=== PATIENT | female | born 1955 | race Caucasian/White ===

== ENCOUNTER 2016-07-21 12:16 | Inpatient (IN) ==
[2016-07-21] MEDS ORDERED: Aspirin 325 MG TABLET PO ONE (12:53)
--- NOTE | 2016-07-21 13:08 | Emergency Department Note ---
Disposition Clinical Impression: NSTEMI (non-ST elevated myocardial infarction) Disposition: Home, Self-Care Condition: Critical Time of Disposition: 14:56 Chest Pain HPI - General Chief Complaint: ED Shortness of Breath/Dyspnea Stated Complaint: shortness of breath Time Seen by Provider: 07/21/16 12:28 Source: patient, EMS Limitations: no limitations Vital Signs Reviewed: Yes Nursing Notes Reviewed: Yes - History of Present Illness HPI Narrative: Ms. Ludwig, a 61yo female, presents from PCP office with CC: chest pain with JAGJIT. CP onset last night while resting. Located midsternal and nonradiating. Described as a heaviness, "like an elephant sitting on my chest. " This lasted approximately 1 hour and spontaneously self resolved. Her symptoms were associated with dyspnea, diaphoresis, generalized weakness. Her dyspnea has persisted. 1-2 days prior, patient noted having a sharp pain in her left calf which also spontaneously resolved. Patient was at her primary care physician today with a well visit in presenting his concerns. PCP was concerned for a pulmonary embolus given the patient's leg pain with dyspnea. Patient denies chest pain at this time however she is dyspneic. PMH: Hypertension. Admits: Chest pain, dyspnea, diaphoresis, generalized weakness. Denies: Fever, chills, nausea, vomiting, palpitations, abdominal pain. Denies history of cardiac problems. Denies COPD. Denies diabetes. No melena, hematochezia, hemetemesis, epistaxis, easy bruising. Family history: Denies FL in males under 55 or females under 65. Severity scale (1-10): 9 - Related Data Home Medications Medication Instructions Recorded Confirmed Atorvastatin [Lipitor] 40 mg PO HS 06/05/16 07/21/16 Escitalopram [Lexapro] 20 mg PO DAILY 06/05/16 07/21/16 Ezetimibe [Zetia] 10 mg PO DAILY 06/05/16 07/21/16 Levothyroxine [Synthroid] 100 mcg PO DAILY 06/05/16 07/21/16 Losartan Potassium [Cozaar] 50 mg PO DAILY 06/05/16 07/21/16 Omeprazole [PriLOSEC] 20 mg PO DAILY 06/05/16 07/21/16 Tizanidine HCl 4 mg PO HS PRN 06/05/16 07/21/16 AcetaZOLAMIDE [Acetazolamide] 500 mg PO BID 07/21/16 07/21/16 Vitamin D3 07/21/16 Allergies Allergy/AdvReac Type Severity Reaction Status Date / Time Penicillins [PCN] Allergy Rash Verified 05/17/15 08:45 All systems ED: reviewed and negative except as stated. Chest Pain PMH - Past Medical History Medical history: Reports: diabetes, GERD, hyperlipidemia, hypertension, other Surgical history: Reports: appendectomy, cholecystectomy, hysterectomy, other Psychiatric history: Reports: depression - Social History Smoking Status: Never smoker Alcohol use: Reports: none Drug use: Reports: none Physical Exam Vital Signs Temperature 97.7 F 07/21/16 12:20 Pulse Rate 90 07/21/16 12:20 Respiratory Rate 18 07/21/16 12:20 Blood Pressure 133/71 07/21/16 12:20 O2 Sat by Pulse Oximetry 97 07/21/16 12:20 Temperature 97.7 F 07/21/16 12:20 Pulse Rate 87 07/21/16 13:15 Respiratory Rate 16 07/21/16 13:15 Blood Pressure 129/71 07/21/16 13:15 O2 Sat by Pulse Oximetry 97 07/21/16 13:15 Oxygen Delivery Oxygen Delivery Room Air General: Patient is alert, oriented, and in no acute distress. HEENT: No facial asymmetry. Head is normocephalic and atraumatic. Trachea midline. Cardiovascular: Heart regular rate and rhythm without clicks, rubs, gallops, or murmurs. No JVD. PMI nondisplaced. No pedal edema. Peripheral pulses 2/4 posterior tibial and dorsalis pedis bilaterally. Respiratory: Symmetric chest rise with good respiratory effort. Bilateral breath sounds are clear without wheezing, crackles, or rhonchi. Abdomen: Bowel sounds present normoactive x-4 quadrants. Abdomen is soft, nondistended, and nontender. No organomegaly noted. Musculoskeletal: Bilateral lower extremity is without edema. No asymmetry observed between lefts Or thigh versus right. Psych: Patient's affect is appropriate for situation. - General Limitations: no limitations General appearance: alert, in no apparent distress Course Course Narrative: My initial concern is for an STEMI as patient's EKG is unremarkable. PE or DVT unlikely given patient's clinical story. WELLS DVT score -2. WELLS PE score 0. Patient is PERC + by age only. At this time, clinical suspicion is low will not perform d-dimer, vascular ultrasound, or CTA chest. Chest x-rays on concerning. Interpreted as no acute cardiopulmonary disease. Chest X-Ray 07/21/16 12:52 IMPRESSION: 1. No active pulmonary disease. D/ / Arslan Martinez MD / Arslan Martinez MD Interpreting Provider: Arslan Martinez MD 14:[address] Jackson who agrees to accept the patient. Admitting diagnosis NSTEMI. Vital Signs Temperature 97.7 F 07/21/16 12:20 Pulse Rate 90 07/21/16 12:20 Respiratory Rate 18 07/21/16 12:20 Blood Pressure 133/71 07/21/16 12:20 O2 Sat by Pulse Oximetry 97 07/21/16 12:20 Temperature 97.7 F 07/21/16 12:20 Pulse Rate 82 07/21/16 14:30 Respiratory Rate 16 07/21/16 15:33 Blood Pressure 150/76 07/21/16 15:33 O2 Sat by Pulse Oximetry 97 07/21/16 14:30 Oxygen Delivery Oxygen Delivery Room Air Chest Pain - Lab Data Result diagrams: 07/21/16 13:21 07/21/16 13:21 Lab Results 07/21/16 07/21/16 07/21/16 Range/Units 13:21 13:21 13:21 WBC 9.8 (4.3-11.1) K/mcL RBC 4.57 (3.82-4.97) M/mcL Hgb 8.2 L (11.5-15.4) g/dL Hct 30.5 L (35.3-44.9) % MCV 66.7 L (83.0-100.0) fL MCH 17.9 L (28.0-33.3) pg MCHC 26.9 L (31.6-35.5) g/dL RDW 18.3 H (11.5-14.5) % Plt Count 328 (140-400) K/mcL MPV 9.7 (9.4-12.4) fL Immature Gran % 0.4 (0-4) % Seg Neutrophils % 77.5 % Lymphocytes % 16.5 % Monocytes % 4.8 % Eosinophils % 0.4 % Basophils % 0.4 % Neutrophils # 7.6 (1.6-8.9) K/mcL Lymphocytes # 1.6 (0.6-4.6) K/mcL Monocytes # 0.5 (0.0-1.3) K/mcL Eosinophils # 0.0 (0.0-0.6) K/mcL Basophils # 0.0 (0.0-0.2) K/mcL Platelet Estimate Normal (Normal) Large Platelets Present A (Not Present) Hypochromasia Present A (Not Present) Microcytosis Present A (Not Present) Ovalocytes 1+ A (Not Present) Sodium 141 (136-145) mEq/L Potassium 3.4 L (3.5-4.5) mEq/L Chloride 110 H (98-109) mEq/L Carbon Dioxide 20 (19-29) mEq/L BUN 16 (7-20) mg/dL Creatinine 0.80 (0.57-1.11) mg/dL Est GFR ( Amer) > 60 (> 60) Est GFR (Non-Af Amer) > 60 (> 60) BUN/Creatinine Ratio 20 (6-26) Glucose 76 (70-99) mg/dL Calculated Osmolality 292 (280-300) Calcium 10.1 (8.6-10.8) mg/dL Troponin I 0.12 H* (0-0.03) ng/mL B-Natriuretic Peptide (0-100) pg/mL 07/21/16 Range/Units 13:21 WBC (4.3-11.1) K/mcL RBC (3.82-4.97) M/mcL Hgb (11.5-15.4) g/dL Hct (35.3-44.9) % MCV (83.0-100.0) fL MCH (28.0-33.3) pg MCHC (31.6-35.5) g/dL RDW (11.5-14.5) % Plt Count (140-400) K/mcL MPV (9.4-12.4) fL Immature Gran % (0-4) % Seg Neutrophils % % Lymphocytes % % Monocytes % % Eosinophils % % Basophils % % Neutrophils # (1.6-8.9) K/mcL Lymphocytes # (0.6-4.6) K/mcL Monocytes # (0.0-1.3) K/mcL Eosinophils # (0.0-0.6) K/mcL Basophils # (0.0-0.2) K/mcL Platelet Estimate (Normal) Large Platelets (Not Present) Hypochromasia (Not Present) Microcytosis (Not Present) Ovalocytes (Not Present) Sodium (136-145) mEq/L Potassium (3.5-4.5) mEq/L Chloride (98-109) mEq/L Carbon Dioxide (19-29) mEq/L BUN (7-20) mg/dL Creatinine (0.57-1.11) mg/dL Est GFR ( Amer) (> 60) Est GFR (Non-Af Amer) (> 60) BUN/Creatinine Ratio (6-26) Glucose (70-99) mg/dL Calculated Osmolality (280-300) Calcium (8.6-10.8) mg/dL Troponin I (0-0.03) ng/mL B-Natriuretic Peptide 325 H (0-100) pg/mL - EKG Data EKG attestation: Yes I reviewed and interpreted this EKG. EKG results narrative: EKG dated 07/21/16 interpreted as sinus rhythm with a rate of 90. Left axis. Movement artifact is evident. Nonspecific ST-T changes with 0.5mm ST depression in lateral leads. Compared to previous dated 12/23/16 showing no acute ischemic changes in comparison. Heart Score - Score History: Slightly Suspicious EKG: Normal Age: 45-65 Risk Factors: 1-2 risk factors Troponin: Greater than 3x normal limit HEART Score Total: 4 Attestation Statement - Attestation Attestation: I examined this patient and my medical decision-making was reviewed with the Resident Physician. I agree with the documented findings, disposition and treatment plan as described except to the extent set forth below. CP overnight, none since, but has had persistent SOB t/o day. Has excessive fatigue and decreased exercise tolerance due to ASTORGA. Trop 0.20, subtle ST depression laterally. Dx NSTEMI, will admit/anticoagulate (no sx of GI bleeding or other abnormal bleeding).
[2016-07-21 13:31] LABS: Basophils % 0.4 %; Eosinophils % 0.4 %; Hematocrit 30.5 % (35.3-44.9); Hemoglobin 8.2 g/dL (11.5-15.4); Immature Granulocytes % 0.4 % (0-4); Lymphocytes # 1.6 K/mcL (0.6-4.6); Lymphocytes % 16.5 %; Mean Corpuscular HGB Conc 26.9 g/dL (31.6-35.5); Mean Corpuscular Hemoglobin 17.9 pg (28.0-33.3); Mean Corpuscular Volume 66.7 fL (83.0-100.0); Mean Platelet Volume 9.7 fL (9.4-12.4); Monocytes # 0.5 K/mcL (0.0-1.3); Monocytes % 4.8 %; Neutrophils # 7.6 K/mcL (1.6-8.9); Platelet Count 328 K/mcL (140-400); Red Blood Count 4.57 M/mcL (3.82-4.97); Red Cell Distribution Width 18.3 % (11.5-14.5); Segmented Neutrophils % 77.5 %
[2016-07-21 13:48] LABS: BUN/Creatinine Ratio 20 (6-26); Blood Urea Nitrogen 16 mg/dL (7-20); Calcium 10.1 mg/dL (8.6-10.8); Carbon Dioxide 20 mEq/L (19-29); Chloride 110 mEq/L (98-109); Glucose 76 mg/dL (70-99); Osmolality,Calculated 292 (280-300); Potassium 3.4 mEq/L (3.5-4.5); Sodium 141 mEq/L (136-145); eGFR For African Americans > 60 (> 60); eGFR For Non-African Americans > 60 (> 60)
[2016-07-21 13:57] LABS: Hypochromasia Present (Not Present); Large Platelets Present (Not Present); Microcytosis Present (Not Present); Platelet Estimate Normal (Normal)
[2016-07-21 13:58] LABS: Ovalocytes 1+ (Not Present)
[2016-07-21] MEDS ORDERED: *HR* Enoxaparin 120 MG/0.8 ML SYRINGE SQ STA (14:34)
[2016-07-21] MEDS ORDERED: Naloxone 0.4 MG/ML INJ IVP PRN (17:24)
[2016-07-21] MEDS ORDERED: *HR* HYDROcodone/Acet 5/325 mg TABLET PO PRN (17:24)
[2016-07-21] MEDS ORDERED: tiZANidine 4 MG TABLET PO PRN (17:38)
[2016-07-21] MEDS ORDERED: Dextrose Gel 15 GM PO PRN ×2 (17:42)
[2016-07-21] MEDS ORDERED: *HR* Dextrose 50 % in Water (Syg) 50 ML SYRINGE IVP PRN (17:42)
[2016-07-21] MEDS ORDERED: D5% in Water 1,000 ML IV PRN (17:42)
[2016-07-21] MEDS ORDERED: Nitroglycerin 0.4 MG TAB.SUBL SL PRN (17:43)
--- NOTE | 2016-07-21 17:55 | Internal Med History&Physical ---
Date of Encounter: 07/21/16 Time of Encounter: 16:00 Assessment and Plan (1) NSTEMI (non-ST elevated myocardial infarction) Current visit: Yes Status: Acute 1 patient did experience chest pain last night with shortness of breath . Risk factors include hypertension diabetes obesity. First cardiac troponin was 0.12. Continue to cycle cardiac troponins 2 continue with aspirin Lovenox, 3 nitroglycerin and oxygen as needed 4 continue with statin ARB will add low dose beta prabhu 5 Will obtain cardiac echo 6 consulted cardiology 7 N by mouth after midnight (2) Diabetes mellitus Current visit: Yes Status: Acute 1 patient type II diabetic states that she does not take any insulin she is diet controlled. We will check blood sugars before meals and at bedtime sliding scale insulin as needed Qualifiers: Diabetes mellitus type: type 2 Diabetes mellitus complication status: without complication Diabetes mellitus long term care administrator insulin use: without snf use Qualified Code(s): E11.9 - Type 2 diabetes mellitus without complications (3) Hypothyroid Current visit: Yes Status: Acute 1 continue with Synthroid-we will check TSH Qualifiers: Hypothyroidism type: unspecified Qualified Code(s): E03.9 - Hypothyroidism , unspecified (4) Hypertension Current visit: Yes Status: Acute 1 presently blood pressure is controlled we will continue with ARB goal is to maintain systolic less than 140 Qualifiers: Hypertension type: essential hypertension Qualified Code(s): I10 - Essential (primary) hypertension (5) Anemia Current visit: Yes Status: Acute 1 hemoglobin at present time is 8.2 patient states that she was anemic in the past. Denies any hemataemesis, melena or hematochezia. She is not on any blood thinners. We will obtain anemia workup will continue to monitor CBC and transfuse as needed Qualifiers: Anemia type: unspecified type Qualified Code(s): D64.9 - Anemia, unspecified (6) DVT prophylaxis Current visit: Yes Status: Acute 1 [facility] Internal Medicine - H&P: HPI Chief complaint: CP Admitted From: Emergency Dept Plans for Post Hospital Care: Home History of present illness: Ms. Ludwig is a 61 year old female . History of hypertension diabetes hypothyroidism GERD hyperlipidemia. Patient noticed shortness breath on exertion as she was walking to the grocery store yesterday evening. The shortness of breath resolved with rest and a few hours later she began to experience midsternal sharp 10 out of 10 chest pain which was nonradiating. She has associated symptoms of nausea and shortness of breath the pain was exacerbated with exertion and relieved with rest it eventually resolved on its own. This morning she went to an appointment with her primary care physician experienced shortness of breath and lightheadedness. She was transported to ER for further evaluation. Upon arrival to the ER patient states her shortness of breath resolved. According to ER records patient's first cardiac troponin was 0.12 hemoglobin was 8.2 chemistry revealed hypokalemia with potassium 3.4. Chest x-ray no acute process EKG with no ST-T wave abnormalities. Patient was given aspirin and weight-based Lovenox. She was admitted for further workup and evaluation. Presently patient is chest pain-free and denies any shortness of breath she is hemodynamically stable at this time. I did speak with Dr. Garcia cardiology request the patient be nothing by mouth after midnight and to hold her a.m. Lovenox until after she is evaluated by cardiology. I reviewed this case with who agrees with plan Past Med Surg Social Fam HX - Past Medical History Medical history: diabetes, GERD, hyperlipidemia, hypertension, other Psychiatric history: depression - Past Surgical History Surgical History: appendectomy, cholecystectomy, hysterectomy, other - Social History Smoking Status: Never smoker Smokeless Tobacco Status: No Alcohol use: none Drug use: none - Family History Father Living Status: Still Living Hx Family Endocrine Disorder: Yes Brother Living Status: Still Living Hx Family Endocrine Disorder: Yes Internal Medicine - H&P: Meds Atorvastatin [Lipitor] 40 mg PO HS 06/05/16 [History] Escitalopram [Lexapro] 20 mg PO DAILY 06/05/16 [History] Ezetimibe [Zetia] 10 mg PO DAILY 06/05/16 [History] Levothyroxine [Synthroid] 100 mcg PO DAILY 06/05/16 [History] Losartan Potassium [Cozaar] 50 mg PO DAILY 06/05/16 [History] Omeprazole [PriLOSEC] 20 mg PO DAILY 06/05/16 [History] Tizanidine HCl 4 mg PO HS PRN 06/05/16 [History] AcetaZOLAMIDE [Acetazolamide] 500 mg PO BID 07/21/16 [History] Vitamin D3 07/21/16 [History] Allergies Penicillins [PCN] Allergy (Verified 05/17/15 08:45) Rash All Systems PM: A 10-system review of systems was performed and is negative for pertinent findings except as documented above in the HPI. - Constitutional Constitutional: weakness - Cardiovascular Cardiovascular ROS IM: chest pain, dyspnea on exertion - Respiratory Respiratory: no cough, no dyspnea, no wheezing, no excessive phlegm production - Gastrointestinal Gastrointestinal: no abdominal pain, no diarrhea, no hematemesis, no hematochezia, no melena, no nausea, no vomiting - Genitourinary Genitourinary: no change in urinary stream, no dysuria, no flank pain, no hematuria - Musculoskeletal Musculoskeletal ROS IM: no numbness, no tingling - Neurological Neurological ROS: no confusion, no convulsions, no focal weakness, no numbness, no tingling, no tremor(s) - Hematologic/Lymphatic Hematologic/Lymphatic: no easy bruising - Constitutional Vitals: Temp Pulse Resp BP Pulse Ox 97.8 F 87 18 134/84 95 07/21/16 15:51 07/21/16 15:51 07/21/16 15:51 07/21/16 15:51 07/21/16 15:51 General appearance: Present: A&O X 3, obese, answers questions appropriately - Head Head exam: Present: atraumatic, normocephalic - Neck Neck exam general surgery: Present: supple, trachea midline. Absent: lymphadenopathy - Respiratory Respiratory exam: Present: CTAB. Absent: accessory muscle use, rales, rhonchi, wheezes - Cardiovascular Cardiovascular exam: Present: RRR, +S1, +S2. Absent: diastolic murmur, gallop, rubs, systolic murmur - GI/Abdominal GI/Abdominal exam: Present: normal bowel sounds, soft, no peritoneal signs. Absent: distended, tenderness - Extremities Exam Extremities exam: Present: warm, radial pulses palpable and symetrical. Absent : calf tenderness, cyanotic, pedal edema - Neurological Exam Neurological exam: Present: CN II-XII intact, oriented X3, no focal deficits. Absent: pronater drift, facial droop, speech deficit Internal Med - H&P Results - Labs CBC & Chem 7: 07/21/16 13:21 07/21/16 13:21 - EKG Data EKG shows normal: sinus rhythm - Diagnostic Studies Chest x-ray Additional comments: No acute process
[2016-07-21] MEDS: *HR* Morphine 2 MG/ML SYRINGE IVP PRN ×2 (19:25→23:56)
[2016-07-21] MEDS: Insulin LISPRO 300 UNITS/3 ML VIAL SQ SCH (22:08)
[2016-07-22] MEDS: Ondansetron 4 MG/2 ML VIAL IVP PRN (00:34)
[2016-07-22 03:55] LABS: Immature Granulocytes % 0.5 % (0-4); Red Cell Distribution Width 18.4 % (11.5-14.5)
[2016-07-22 03:57] LABS: Basophils # 0.1 K/mcL (0.0-0.2); Basophils % 0.6 %; Eosinophils # 0.1 K/mcL (0.0-0.6); Hematocrit 27.4 % (35.3-44.9); Hemoglobin 7.4 g/dL (11.5-15.4); Immature Platelets 3.5 % (1.1-6.1); Lymphocytes # 2.7 K/mcL (0.6-4.6); Lymphocytes % 24.2 %; Mean Corpuscular Hemoglobin 18.3 pg (28.0-33.3); Mean Corpuscular Volume 67.8 fL (83.0-100.0); Mean Platelet Volume 10.3 fL (9.4-12.4); Monocytes # 0.7 K/mcL (0.0-1.3); Monocytes % 5.9 %; Platelet Count 306 K/mcL (140-400); Red Blood Count 4.04 M/mcL (3.82-4.97); Segmented Neutrophils % 67.8 %
[2016-07-22 04:09] LABS: % Iron Saturation 3 % (15-50); Iron 14 mcg/dL (50-170); Transferrin 286 mg/dL (180-382)
[2016-07-22 04:10] LABS: BUN/Creatinine Ratio 18 (6-26); Blood Urea Nitrogen 15 mg/dL (7-20); Calcium 8.9 mg/dL (8.6-10.8); Carbon Dioxide 18 mEq/L (19-29); Chloride 111 mEq/L (98-109); Chol/HDL Ratio 3.9 (0-4.9); Glucose 114 mg/dL (70-99); HDL Cholesterol 20 mg/dL (40-59); LDL Cholesterol,Calculated 30 mg/dL (0-99); Magnesium 1.2 mg/dL (1.6-2.6); Osmolality,Calculated 292 (280-300); Potassium 3.4 mEq/L (3.5-4.5); Sodium 140 mEq/L (136-145); Triglycerides 142 mg/dL (< 150); eGFR For African Americans > 60 (> 60); eGFR For Non-African Americans > 60 (> 60)
[2016-07-22 04:13] LABS: Cholesterol 78 mg/dL (< 200)
[2016-07-22 04:17] LABS: Neutrophils # 7.5 K/mcL (1.6-8.9)
[2016-07-22 04:21] LABS: Anisocytosis 1+ (Not Present); Large Platelets Present (Not Present); Microcytosis Present (Not Present); Platelet Estimate Normal (Normal); Reactive Lymphocytes Present (Not Present)
[2016-07-22 04:22] LABS: Ovalocytes 1+ (Not Present); Poikilocytosis 1+ (Not Present); Polychromasia 1+ (Not Present); Schistocytes 1+ (Not Present)
[2016-07-22 04:44] LABS: Folate 4.3 ng/mL (7.0-31.4)
[2016-07-22] MEDS ORDERED: *HR* Enoxaparin 120 MG/0.8 ML SYRINGE SQ SCH ×2 (07:00)
[2016-07-22] MEDS: Insulin LISPRO 300 UNITS/3 ML VIAL SQ SCH ×4 (08:37→20:43)
[2016-07-22] MEDS: Aspirin 81 MG TAB.CHEW PO SCH (08:38)
[2016-07-22] MEDS: (Ezetimibe [Zetia] 10 MG) PO SCH (08:38)
--- NOTE | 2016-07-22 09:51 | Cardiology Consult Note ---
Date of Encounter: 07/22/16 Time of Encounter: 10:01 Assessment and Plan (1) SOB (shortness of breath) on exertion Current Visit: Yes Status: Acute Sxs probably related to anemia - ? source. Echo pending. If EF is normal - no additional eval planned for now. (2) Chest pain Current Visit: Yes Status: Acute Sxs have some concerning features. No acute EKG changes and Troponin trended down overnight. At this point, not convinced this is ACS/ND/NSTEMI - probably suspect demand mismatch. Given anemia - suspect this is the most likely culprit. Echo ordered. No immediate ischemic eval - would wait until anemia is fully addressed. Qualifiers: Chest pain type: precordial pain Qualified Code(s): R07.2 - Precordial pain (3) Anemia Current Visit: Yes Status: Acute Trended down overnight which limits CV treatment options Also probably the source of her recent sxs. Defer to others for this problem as well as unexplained weight loss/nausea Qualifiers: Anemia type: unspecified type Qualified Code(s): D64.9 - Anemia, unspecified Discussion w patient/family: The assessment and plan as outlined above was discussed with the patient and/or family members who expressed understanding and agreement. All questions were answered. Thank you for involving us in the care of your patient. Please call with any questions. History of Present Illness Consult date: 07/22/16 Consult reason: chest pain Chief complaint: same History of present illness: Ms. Ludwig is a 61 year old female presents with < 1 week h/o SOB with exertion as well as intermittent anterior chest heaviness. This chest pain, started at rest, no clear exacerbating or relieving factor. No definite radiation. She denies any sxs prior to last week. She denies any sxs while I at bedside. Work up in the ER notable for anemia, and a slight increase in Troponin. Patient denies any overt bleeding. Patient denies any recent CV assessment. Other complaints today includes poor appetite and a 30+ pound weight loss in the past few months. Past Med Surg Social Fam HX - Past Medical History Medical history: diabetes, GERD, hyperlipidemia, hypertension, other Psychiatric history: depression - Past Surgical History Surgical History: appendectomy, cholecystectomy, hysterectomy, other - Social History Smoking Status: Never smoker Smokeless Tobacco Status: No Alcohol use: none Drug use: none - Family History Father Living Status: Still Living Hx Family Endocrine Disorder: Yes Brother Living Status: Still Living Hx Family Endocrine Disorder: Yes Medications and Allergies Atorvastatin [Lipitor] 40 mg PO HS 06/05/16 [History] Escitalopram [Lexapro] 20 mg PO DAILY 06/05/16 [History] Ezetimibe [Zetia] 10 mg PO DAILY 06/05/16 [History] Levothyroxine [Synthroid] 100 mcg PO DAILY 06/05/16 [History] Losartan Potassium [Cozaar] 50 mg PO DAILY 06/05/16 [History] Omeprazole [PriLOSEC] 20 mg PO DAILY 06/05/16 [History] Tizanidine HCl 4 mg PO HS PRN 06/05/16 [History] AcetaZOLAMIDE [Acetazolamide] 500 mg PO BID 07/21/16 [History] Vitamin D3 07/21/16 [History] Allergies Penicillins [PCN] Allergy (Verified 05/17/15 08:45) Rash All Systems Review: A 10-system review of systems was performed and is negative for pertinent findings except as documented above in the HPI. Review of Systems: Except as outline below - all other reviews were negative. - Constitutional Constitutional: fatigue, weight loss - Cardiovascular Cardiovascular: chest pain at rest, dyspnea on exertion, no diaphoresis, no irregular heart rhythm, no syncope - Respiratory Respiratory: dyspnea, no hemoptysis - Gastrointestinal Gastrointestinal: nausea, no hematemesis, no hematochezia, no melena - Genitourinary Genitourinary: no hematuria Physical Examination Vital Signs, Last 4 Hours Temp Pulse Resp BP Pulse Ox 07/22/16 07:15 97.9 F 78 18 144/83 94 L General: Conversant, No Apparent Distress HEENT: Atraumatic, Normocephaly Neck: No JVD Cardiac: Reg Rate and Rhythm Lungs: Normal Breath Sounds Neuro: Alert and responsive, No focal deficits noted Abdomen: Soft, Non-Tender Skin: No rashes noted on visualized skin Musculoskeletal: No Chest Wall Tenderness Extremities: No Clubbing, No Cyanosis Results 07/22/16 03:46 07/22/16 03:46 Lab Results 07/22/16 07/22/16 07/22/16 03:46 03:46 03:46 WBC 11.0 Hgb 7.4 L Hct 27.4 L Plt Count 306 Sodium 140 Potassium 3.4 L Chloride 111 H Carbon Dioxide 18 L BUN 15 Creatinine 0.82 Glucose 114 H Calcium 8.9 Magnesium 1.2 L Troponin I 0.08 H* - EKG Interpretation EKG results cardiology: personally reviewed, no diagnostic ischemia Consult Discharge Plan - Plan Referrals: Francine Wood MD [Primary Care Provider] -
--- NOTE | 2016-07-22 12:22 | Internal Med Progress Note ---
Date of Encounter: 07/22/16 Time of Encounter: 12:20 - Assessment and plan (1) Chest pain Current Visit: Yes Status: Acute Assessment and plan: Unlikely cardiac origin. Tropnin trending down and possible demand ischimia. will observe closely. Qualifiers: Chest pain type: precordial pain Qualified Code(s): R07.2 - Precordial pain (2) Anemia Current Visit: Yes Status: Acute Assessment and plan: has anaemia and looking at indicies, it appears that she has microcytic/ hypochromic anaemia. plan will get GI evaluation for possible EGD/Colonoscopy. family updated and agreed. Qualifiers: Anemia type: unspecified type Qualified Code(s): D64.9 - Anemia, unspecified (3) Diabetes mellitus Current Visit: Yes Status: Acute Assessment and plan: ACHS Sliding scale insulin along with home dose. patient agreed Qualifiers: Diabetes mellitus type: type 2 Diabetes mellitus complication status: without complication Diabetes mellitus health service coordinator insulin use: without health service coordinator use Qualified Code(s): E11.9 - Type 2 diabetes mellitus without complications - Subjective Interval history: seen and examined. patient has profuse diarrhea for past 3 days. she has ongoing diarrhea associated with consipation for more than 5 months. family at bedside and concern about this. she denies chest pain. - Constitutional Vitals: Temp Pulse Resp BP Pulse Ox 97.9 F 78 18 144/83 94 L 07/22/16 07:15 07/22/16 07:15 07/22/16 07:15 07/22/16 07:15 07/22/16 07:15 General appearance: Present: A&O X 3, obese, answers questions appropriately - Head Head exam: Present: atraumatic, normocephalic - Eye Eye exam: Present: PERRL, conjuntiva pink, sclera anicteric Pupils: Present: PERRL - Neck Neck exam general surgery: Present: supple, trachea midline. Absent: lymphadenopathy - Respiratory Respiratory exam: Present: CTAB. Absent: accessory muscle use, rales, rhonchi, wheezes - Cardiovascular Cardiovascular exam: Present: RRR, +S1, +S2. Absent: diastolic murmur, gallop, rubs, systolic murmur - GI/Abdominal GI/Abdominal exam: Present: normal bowel sounds, soft, no peritoneal signs. Absent: distended, tenderness - Extremities Exam Extremities exam: Present: warm, radial pulses palpable and symetrical. Absent : calf tenderness, cyanotic, pedal edema - Neurological Exam Neurological exam: Present: CN II-XII intact, oriented X3, no focal deficits. Absent: pronater drift, facial droop, speech deficit - Skin Skin exam: Present: dry, intact Internal Medicine: Result - Labs CBC & Chem 7: 07/22/16 03:46 07/22/16 03:46 Labs: Short CBC 07/22/16 Range/Units 03:46 WBC 11.0 (4.3-11.1) K/mcL Hgb 7.4 L (11.5-15.4) g/dL Hct 27.4 L (35.3-44.9) % Plt Count 306 (140-400) K/mcL Neutrophils # 7.5 (1.6-8.9) K/mcL BMP 07/22/16 03:46 Sodium 140 Potassium 3.4 L Chloride 111 H Carbon Dioxide 18 L BUN 15 Creatinine 0.82 Glucose 114 H Calcium 8.9 Cardiac Enzymes 07/22/16 07/22/16 Range/Units 03:46 09:38 Troponin I 0.08 H* 0.07 H* (0-0.03) ng/mL Consult Discharge Plan - Plan Referrals: Francine Wood MD [Primary Care Provider] -
--- NOTE | 2016-07-22 13:42 | ECHO - Doppler Report ---
Echo with Saline Contrast Name: Roxana Ludwig Date of Study: 07/22/2016 Date: 1955 Ht: 66.0 in Medical Record#: [id number] Age: 61 Wt: 232.0 lb Gender: Female BSA: 2.13 Order #: [id number] Location: [facility] Room #: 2NE27 Reading Physician: Concetta Olivas DO Lead Pl Sql Developer: Kiah Santiago Ordering Physician: Maria G Amin CNP Primary Physician: Francine Wood MD Indications: Chest pain Impressions: LVEF 55%. Mild concentric hypertrophy of the left ventricle. There is evidence of mild diastolic dysfunction of the left ventricle. Dilated RV with normal function. Mild pulmonic regurgitation. No pulmonary hypertension. There is evidence of a PFO with agitated saline contrast. Left Ventricular Wall Motion: Rest Echo Findings All wall segments showed normal motion. Findings: Study Quality * Technically sub-optimal due to body habitus. ECG Findings * Normal sinus rhythm. Left Ventricle * LVEF 55%. * Mild concentric left ventricular hypertrophy. * Mild left ventricular diastolic dysfunction. Left Atrium * Normal left atrial size. Mitral Valve * Normal mitral valve structure. * No mitral stenosis. * Trace mitral regurgitation. Aortic Valve * Aortic valve not well visualized. * Trace aortic regurgitation. * No aortic stenosis. Tricuspid Valve * Tricuspid valve not well visualized. * Trace tricuspid regurgitation. * Estimated RA pressure is 3 mmHg. * Estimated RVSP is 30 mmHg. * No pulmonary hypertension. Pulmonic Valve * Pulmonic valve is not well visualized. * No pulmonic stenosis. * Mild pulmonic regurgitation. Pulmonary Artery * Pulmonary artery not well visualized. Right Ventricle * Dilated RV with normal function. Right Atrium * Normal right atrial size. Interatrial Septum * There is a PFO by agitated saline contrast, * Aneurysmal interatrial septal. IVC * The IVC is not dilated. Pericardium * There is no pericardial effusion present. Aorta * Normally sized aortic root. History Hypertension Diabetes Hypercholesteremia Myocardial Infarction Contrast: Agitated saline 10 ml. Measurements: BP: 144/ 83 2D Normal Values IVSd: 1.50 cm 0.6 - 1.0 cm LVIDd: 3.90 cm 3.7 - 5.6 cm LVPWd: 1.30 cm 0.6 - 1.1 cm LVIDs: 2.00 cm 1.5 - 3.6 cm AO: 3.10 cm < 4.0 cm LA: 4.10 cm 2.0 - 4.0cm %FS: 48.70 cm >25 % LA volume: 50 Mitral Valve Peak E:.80 m/sec Peak A:.71 m/sec E/A Ratio:1.1 Tricuspid Valve TV Regurg Peak Grad: 27.00mmHg TV Regurg Peak Joés: 2.61m/sec Updated by Concetta Olivas on 07/22/2016 1:38:45 PM electronically signed on 07/22/2016 1:39:20 PM with status of Final Wall Motion Bernard: 1=Normal, 2=Hypokinesis, 3=Akinesis, 4=Dyskinesis, 5=Aneurysmal, 6=Hyperkinetic, X=Not Visualized (Blank)=Missing
--- NOTE | 2016-07-22 14:01 | Event Note ---
Date of Encounter: 07/22/16 Time of Encounter: 13:58 - Cardiology Event Note Echo EF 55%. Mild concentric LVH, mild diastolic dysfunction, dilated RV with normal function, mild AL, PFO noted. No further cardiac work-up warranted. Cardiology signing off. Reconsult PRN.
[2016-07-22] MEDS: Acetaminophen 325 MG TABLET PO PRN (17:31)
[2016-07-23 05:39] LABS: Basophils % 0.7 %; Hemoglobin 7.3 g/dL (11.5-15.4); Immature Granulocytes % 0.6 % (0-4)
[2016-07-23 05:41] LABS: Basophils # 0.1 K/mcL (0.0-0.2); Eosinophils # 0.1 K/mcL (0.0-0.6); Eosinophils % 1.5 %; Hematocrit 27.2 % (35.3-44.9); Lymphocytes # 2.2 K/mcL (0.6-4.6); Lymphocytes % 24.2 %; Mean Corpuscular HGB Conc 26.8 g/dL (31.6-35.5); Mean Corpuscular Hemoglobin 18.2 pg (28.0-33.3); Mean Corpuscular Volume 67.7 fL (83.0-100.0); Monocytes # 0.6 K/mcL (0.0-1.3); Monocytes % 6.5 %; Nucleated Red Blood Cells 0.2 /100 WBC (0); Platelet Count 315 K/mcL (140-400); Red Blood Count 4.02 M/mcL (3.82-4.97); Red Cell Distribution Width 18.2 % (11.5-14.5); Segmented Neutrophils % 66.5 %
[2016-07-23 05:55] LABS: Albumin 2.9 g/dL (3.5-5.0); Albumin/Globulin Ratio 0.7 (1.1-2.2); Alkaline Phosphatase 124 Units/L (38-126); Aspartate Amino Transferase 12 Units/L (5-34); BUN/Creatinine Ratio 15 (6-26); Bilirubin,Total 1.2 mg/dL (0.2-1.2); Blood Urea Nitrogen 14 mg/dL (7-20); Calcium 8.5 mg/dL (8.6-10.8); Carbon Dioxide 22 mEq/L (19-29); Chloride 111 mEq/L (98-109); Globulin 4.1 g/dL (2.4-3.5); Glucose 143 mg/dL (70-99); Osmolality,Calculated 295 (280-300); Potassium 3.6 mEq/L (3.5-4.5); Sodium 141 mEq/L (136-145); eGFR For African Americans > 60 (> 60); eGFR For Non-African Americans > 60 (> 60)
[2016-07-23 05:56] LABS: Alanine Aminotransferase < 6 Units/L (0-55)
[2016-07-23 06:26] LABS: Anisocytosis 1+ (Not Present); Hypochromasia Present (Not Present); Large Platelets Present (Not Present); Microcytosis Present (Not Present); Ovalocytes 1+ (Not Present); Platelet Estimate Normal (Normal); Poikilocytosis 1+ (Not Present)
[2016-07-23] MEDS: Aspirin 81 MG TAB.CHEW PO SCH (08:35)
[2016-07-23] MEDS: Insulin LISPRO 300 UNITS/3 ML VIAL SQ SCH ×4 (08:36→21:42)
[2016-07-23] MEDS: (Ezetimibe [Zetia] 10 MG) PO SCH (08:37)
--- NOTE | 2016-07-23 13:22 | Electrocardiograph Report ---
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
--- NOTE | 2016-07-23 13:52 | Electrocardiograph Report ---
[address] [place] [address] Test Date: 2016-07-22 Pat Name: Roxana Ludwig Department: 111 Room: 2NE27 Gender: F Cna Pct: : 1955 Requested By: Moon Singer Order Number: [id number] Reading MD: Concetta Olivas Measurements Intervals [place] Rate: 68 P: 7 [place]: 188 QRS: -17 QRSD: 80 T: -6 QT: 429 QTc: 446 Interpretive Statements SINUS RHYTHM MODERATE T-WAVE ABNORMALITY, CONSIDER ANTERIOR ISCHEMIA Electronically Signed On 07-23-2016 13:50:24 EST by Concetta Olivas
--- NOTE | 2016-07-23 16:59 | Internal Med Progress Note ---
Date of Encounter: 07/23/16 Time of Encounter: 16:57 - Assessment and plan (1) Anemia Current Visit: Yes Status: Acute Assessment and plan: has anaemia and looking at indicies, it appears that she has microcytic/ hypochromic anaemia. plan will get GI evaluation for possible EGD/Colonoscopy. family updated and agreed. 07/23/2016 spoke with GI colonoscopy tomorrow will prepare today. updated family above. Qualifiers: Anemia type: unspecified type Qualified Code(s): D64.9 - Anemia, unspecified (2) Chest pain Current Visit: Yes Status: Acute Assessment and plan: Unlikely cardiac origin. Tropnin trending down and possible demand ischimia. will observe closely. Qualifiers: Chest pain type: precordial pain Qualified Code(s): R07.2 - Precordial pain (3) Diabetes mellitus Current Visit: Yes Status: Acute Assessment and plan: ACHS Sliding scale insulin along with home dose. patient agreed Qualifiers: Diabetes mellitus type: type 2 Diabetes mellitus complication status: without complication Diabetes mellitus longterm insulin use: without dramatic director use Qualified Code(s): E11.9 - Type 2 diabetes mellitus without complications - Subjective Interval history: seen and examined. patient has profuse diarrhea for past 3 days. she has ongoing diarrhea associated with consipation for more than 5 months. family at bedside and concern about this. she denies chest pain. - Constitutional Vitals: Temp Pulse Resp BP Pulse Ox 98.0 F 79 16 123/71 94 L 07/23/16 16:08 07/23/16 16:08 07/23/16 16:08 07/23/16 16:08 07/23/16 16:08 General appearance: Present: A&O X 3, obese, answers questions appropriately - Head Head exam: Present: atraumatic, normocephalic - Eye Eye exam: Present: PERRL, conjuntiva pink, sclera anicteric Pupils: Present: PERRL - Neck Neck exam general surgery: Present: supple, trachea midline. Absent: lymphadenopathy - Respiratory Respiratory exam: Present: CTAB. Absent: accessory muscle use, rales, rhonchi, wheezes - Cardiovascular Cardiovascular exam: Present: RRR, +S1, +S2. Absent: diastolic murmur, gallop, rubs, systolic murmur - GI/Abdominal GI/Abdominal exam: Present: normal bowel sounds, soft, no peritoneal signs. Absent: distended, tenderness - Extremities Exam Extremities exam: Present: warm, radial pulses palpable and symetrical. Absent : calf tenderness, cyanotic, pedal edema - Neurological Exam Neurological exam: Present: CN II-XII intact, oriented X3, no focal deficits. Absent: pronater drift, facial droop, speech deficit - Skin Skin exam: Present: dry, intact Internal Medicine: Result - Labs CBC & Chem 7: 07/23/16 05:30 07/23/16 05:30 Labs: Short CBC 07/23/16 Range/Units 05:30 WBC 9.0 (4.3-11.1) K/mcL Hgb 7.3 L (11.5-15.4) g/dL Hct 27.2 L (35.3-44.9) % Plt Count 315 (140-400) K/mcL Neutrophils # 6.0 (1.6-8.9) K/mcL BMP 07/23/16 05:30 Sodium 141 Potassium 3.6 Chloride 111 H Carbon Dioxide 22 BUN 14 Creatinine 0.91 Glucose 143 H Calcium 8.5 L Liver Function 07/23/16 Range/Units 05:30 Total Bilirubin 1.2 (0.2-1.2) mg/dL AST 12 (5-34) Units/L ALT < 6 (0-55) Units/L Alkaline Phosphatase 124 (38-126) Units/L Albumin 2.9 L (3.5-5.0) g/dL Consult Discharge Plan - Plan Referrals: Francine Wood MD [Primary Care Provider] -
[2016-07-23] MEDS ORDERED: Polyethylene Glycol 3350 255 GM POWDER PO ONE (18:00)
[2016-07-24] MEDS: Ondansetron 4 MG/2 ML VIAL IVP PRN (01:35)
[2016-07-24 05:58] LABS: Basophils % 0.5 %; Hemoglobin 7.9 g/dL (11.5-15.4); Immature Granulocytes % 0.5 % (0-4); Red Cell Distribution Width 18.3 % (11.5-14.5)
[2016-07-24 06:01] LABS: Basophils # 0.1 K/mcL (0.0-0.2); Eosinophils # 0.1 K/mcL (0.0-0.6); Eosinophils % 0.8 %; Hematocrit 29.8 % (35.3-44.9); Immature Platelets 4.2 % (1.1-6.1); Lymphocytes # 1.7 K/mcL (0.6-4.6); Lymphocytes % 14.5 %; Mean Corpuscular HGB Conc 26.5 g/dL (31.6-35.5); Mean Corpuscular Hemoglobin 17.9 pg (28.0-33.3); Mean Corpuscular Volume 67.4 fL (83.0-100.0); Mean Platelet Volume 10.1 fL (9.4-12.4); Monocytes # 0.6 K/mcL (0.0-1.3); Neutrophils # 9.3 K/mcL (1.6-8.9); Platelet Count 363 K/mcL (140-400); Red Blood Count 4.42 M/mcL (3.82-4.97); Segmented Neutrophils % 78.7 %
[2016-07-24 06:14] LABS: Alanine Aminotransferase 6 Units/L (0-55); Albumin 3.3 g/dL (3.5-5.0); Albumin/Globulin Ratio 0.8 (1.1-2.2); Alkaline Phosphatase 131 Units/L (38-126); Aspartate Amino Transferase 12 Units/L (5-34); BUN/Creatinine Ratio 16 (6-26); Bilirubin,Total 1.4 mg/dL (0.2-1.2); Blood Urea Nitrogen 13 mg/dL (7-20); Calcium 9.1 mg/dL (8.6-10.8); Carbon Dioxide 20 mEq/L (19-29); Chloride 109 mEq/L (98-109); Globulin 4.4 g/dL (2.4-3.5); Glucose 152 mg/dL (70-99); Osmolality,Calculated 291 (280-300); Potassium 3.3 mEq/L (3.5-4.5); Sodium 139 mEq/L (136-145); Total Protein 7.7 g/dL (6.0-8.3); eGFR For African Americans > 60 (> 60); eGFR For Non-African Americans > 60 (> 60)
[2016-07-24 06:19] LABS: Anisocytosis 1+ (Not Present); Hypochromasia Present (Not Present); Ovalocytes 1+ (Not Present); Platelet Estimate Normal (Normal)
[2016-07-24 06:20] LABS: Poikilocytosis 1+ (Not Present)
[2016-07-24 06:21] LABS: Microcytosis Present (Not Present)
--- NOTE | 2016-07-24 08:34 | Gastroenterology Consult Note ---
<Carolyn Jean - Last Filed: 07/24/16 11:44> Date of Encounter: 07/24/16 Time of Encounter: 10:25 - Assessment and plan (1) Anemia Current Visit: Yes Status: Acute Assessment and plan: Iron 14 at admission. Hgb 8.2 down to 7.9 today. Hemoccult was negative. EGD/ Colon today to r/o esophagitis, gastritis, duodenitis, PUD, MW tear, AVM, tumor polyp, varices, colitis, anorectal pathology. Add IV iron. Qualifiers: Anemia type: iron deficiency Iron deficiency anemia type: unspecified iron deficiency Qualified Code(s): D50.9 - Iron deficiency anemia, unspecified (2) Unintentional weight loss Current Visit: Yes Status: Acute Assessment and plan: Unclear etiology, EGD/Colon today. (3) Nausea Current Visit: Yes Status: Acute Assessment and plan: anti-emetics. (4) Diarrhea Current Visit: Yes Status: Chronic Assessment and plan: If continues, stool w/u. Qualifiers: Diarrhea type: unspecified type Qualified Code(s): R19.7 - Diarrhea, unspecified - Time Spent With Patient Total time spent is greater than 50% in coordination of care (as documented) at patient's floor/unit and/or counseling patient: less than 15 minutes GI History of Present Illness - Data of Consult Patient: new to practice Consult date: 07/24/16 Requesting Physician: Melvin Jackson MD - Consult Narrative Reason for consult: microcytic anemia, diarrhea, unintentional wgt loss History of present illness: Ms. Ludwig is a 61 year old female with a PMH of HTN, DM, hypothyroidism, GERD, HLD. Patient noticed shortness breath on exertion as she was walking to the grocery store yesterday evening. The shortness of breath resolved with rest and a few hours later she began to experience midsternal sharp 10 out of 10 chest pain which was nonradiating. She has associated symptoms of nausea and shortness of breath the pain was exacerbated with exertion and relieved with rest it eventually resolved on its own. This morning she went to an appointment with her primary care physician experienced shortness of breath and lightheadedness. She was transported to ER for further evaluation. Upon arrival to the ER patient states her shortness of breath resolved. According to ER records patient's first cardiac troponin was 0.12 hemoglobin was 8.2 chemistry revealed hypokalemia with potassium 3.4. Chest x-ray no acute process EKG with no ST-T wave abnormalities. Patient was given aspirin and weight-based Lovenox. She was admitted for further workup and evaluation. She was evaluated by cardiology who feels that her cardiac symptoms may be related to her anemia and recommend anemia workup to address same. Patient also reported a 30 pound weight loss in recent months, nausea and diarrhea x 3 days. Patient family at bedside. Patient has mild MRDD, mother and father provided most of the history. Presenting symptom was SOB, fatigue, started last .. She has diarrhea 2-3x daily since GB removal. Per the parents, GB was slightly adhered to bowel at time of removal (approximately 30 years ago). Both maternal and paternal grandparents + colon cancer. She has routine dyspepsia symptoms, upper abdominal pain and nausea. Mother admits 30# weight loss over the past 3-4 months for no particular reason. Colonoscopy: 2013 - Sever - diverticulosis EGD: 2013 - Sever - bile gastritis Past Med Surg Social Fam HX - Past Medical History Medical history: diabetes, GERD, hyperlipidemia, hypertension, other Psychiatric history: depression - Past Surgical History Surgical History: appendectomy, cholecystectomy, hysterectomy, other - Social History Smoking Status: Never smoker Smokeless Tobacco Status: No Alcohol use: none Drug use: none - Family History Father Living Status: Still Living Hx Family Endocrine Disorder: Yes Brother Living Status: Still Living Hx Family Endocrine Disorder: Yes - Gastrointestinal NSAID use: none Anticoagulation Use: none Number of BM Per Day: 2-3 Gastrointestinal: Present: abdominal pain, diarrhea, dyspepsia, nausea - Constitutional Constitutional: fatigue, weight loss Additional Comments: 30 pounds over the last 3-4 months. - EENT Eyes: as per HPI Ears: Present: as per HPI Nose, mouth and throat: Present: as per HPI - Cardiovascular Cardiovascular ROS: Present: as per HPI - Respiratory Respiratory IM: Present: dyspnea - Neurological ROS Neurological GI: Present: as per HPI - Hematologic/Lymphatic Hematologic/Lymphatic pediatric: Present: as per HPI - Musculoskeletal Musculoskeletal ROS GI: Present: as per HPI - Integumentary Integumentary GI: Present: as per HPI - Psychiatric ROS Psychiatric GI: Present: as per HPI - Endocrine Endocrine IM: Present: as per HPI - Constitutional Vitals: Temp Pulse Resp BP Pulse Ox 98.2 F 91 16 157/89 96 07/24/16 07:26 07/24/16 07:26 07/24/16 07:26 07/24/16 07:26 07/24/16 07:26 General appearance: Present: cooperative, morbidly obese, no acute distress, answers questions appropriately - Head Head exam: Present: atraumatic, normocephalic - Eye Eye exam: Present: normal appearance, sclera anicteric - ENT ENT exam: Present: mucous membranes moist - Neck Neck exam general surgery: Present: normal inspection, trachea midline - Respiratory Respiratory exam: Present: CTAB - Cardiovascular Cardiovascular exam: Present: RRR, +S1, +S2 - GI/Abdominal GI/Abdominal exam: Present: normal bowel sounds, soft, no peritoneal signs - Rectal Rectal exam: Present: deferred - Extremities Exam Extremities exam: Present: warm - Neurological Exam Neurological exam: Present: no focal deficits - Psychiatric Psychiatric exam: Present: normal affect, normal mood - Skin Skin exam: Present: pallor Results - Labs CBC & Chem 7: 07/24/16 05:47 07/24/16 05:47 Labs: Last Result Calcium 9.1 mg/dL (8.6-10.8) 07/24/16 05:47 Iron 14 mcg/dL (50-170) L 07/22/16 03:46 % Saturation 3 % (15-50) L 07/22/16 03:46 Transferrin 286 mg/dL (180-382) 07/22/16 03:46 Troponin I 0.09 ng/mL (0-0.03) H* 07/22/16 15:56 Triglycerides 142 mg/dL (< 150) 07/22/16 03:46 Vitamin B12 301 pg/mL (213-816) 07/22/16 03:46 Folate 4.3 ng/mL (7.0-31.4) L 07/22/16 03:46 Stool Occult Blood Negative (Negative) 07/23/16 13:00 Entire Visit Hgb 7.9 g/dL (11.5-15.4) L 07/24/16 05:47 Hct 29.8 % (35.3-44.9) L 07/24/16 05:47 Total Bilirubin 1.4 mg/dL (0.2-1.2) H 07/24/16 05:47 AST 12 Units/L (5-34) 07/24/16 05:47 ALT 6 Units/L (0-55) 07/24/16 05:47 Folate 4.3 ng/mL (7.0-31.4) L 07/22/16 03:46 Consult Discharge Plan - Plan Referrals: Francine Wood MD [Primary Care Provider] - <Elmer Coronado - Last Filed: 07/24/16 12:36> Date of Encounter: 07/24/16 Time of Encounter: 11:00 - Time Spent With Patient Total time spent is greater than 50% in coordination of care (as documented) at patient's floor/unit and/or counseling patient: GI History of Present Illness - Data of Consult Requesting Physician: Melvin Jackson MD - Consult Narrative History of present illness: Ms. Ludwig is a 61 year old female - Constitutional Vitals: Temp Pulse Resp BP Pulse Ox 98.6 F 84 16 148/66 96 07/24/16 11:11 07/24/16 11:11 07/24/16 11:11 07/24/16 11:11 07/24/16 11:11 Results - Labs CBC & Chem 7: 07/24/16 05:47 07/24/16 05:47 Labs: Last Result Calcium 9.1 mg/dL (8.6-10.8) 07/24/16 05:47 Iron 14 mcg/dL (50-170) L 07/22/16 03:46 % Saturation 3 % (15-50) L 07/22/16 03:46 Transferrin 286 mg/dL (180-382) 07/22/16 03:46 Troponin I 0.09 ng/mL (0-0.03) H* 07/22/16 15:56 Triglycerides 142 mg/dL (< 150) 07/22/16 03:46 Vitamin B12 301 pg/mL (213-816) 07/22/16 03:46 Folate 4.3 ng/mL (7.0-31.4) L 07/22/16 03:46 Stool Occult Blood Negative (Negative) 07/23/16 13:00 Entire Visit Hgb 7.9 g/dL (11.5-15.4) L 07/24/16 05:47 Hct 29.8 % (35.3-44.9) L 07/24/16 05:47 Total Bilirubin 1.4 mg/dL (0.2-1.2) H 07/24/16 05:47 AST 12 Units/L (5-34) 07/24/16 05:47 ALT 6 Units/L (0-55) 07/24/16 05:47 Folate 4.3 ng/mL (7.0-31.4) L 07/22/16 03:46 - Attending Attestation I examined this patient and my medical decision-making was reviewed with the AFTER SCHOOL TUTOR/PA/Advanced Practice Nurse/Resident Physician. I agree with the documented findings, disposition and treatment plan as described except to the extent set forth below.
[2016-07-24] MEDS: Insulin LISPRO 300 UNITS/3 ML VIAL SQ SCH ×4 (09:31→21:32)
[2016-07-24] MEDS ORDERED: 0.9 % Sodium Chloride 500 ML ONE (10:39)
[2016-07-24] MEDS ORDERED: Ferumoxytol 510 MG in 0.9 % Sodium Chloride 100 ML IVPB ONE (11:43)
[2016-07-24] MEDS ORDERED: *HR* Midazolam HCl 5 MG/5 ML VIAL IVP ONE (13:03)
[2016-07-24] MEDS ORDERED: *HR* FentaNYL (PF) 100 MCG/2 ML VIAL ONE (13:03)
[2016-07-24] MEDS ORDERED: Indomethacin 50 MG SUPP.RECT RC ONE (13:07)
--- NOTE | 2016-07-24 13:07 | Pre-Sedation Evaluation ---
Pre-sedation evaluation - Pre-sedation checklist Date of procedure: 07/24/16 Procedure: colonoscopy/egd Recent Vitals: Last Vital Signs Temp 98.6 F 07/24/16 11:11 Pulse 88 07/24/16 13:04 Resp 16 07/24/16 13:04 BP 159/75 07/24/16 13:04 Pulse Ox 98 07/24/16 13:04 H&P (including ROS) documented in medical record: Yes Previous reaction to sedatives/anesthetics: No Dietary Status: NPO after Midnight Dentition: poor dentition ASA Classification *see protocol: CLASS III-Severe systemic disease Plan of Care: Pt appropriate candidate for procedure/moderate/conscious sedation , Risks/benefits of procedure/sedation discussed w/ patient/family
[2016-07-24] MEDS: *HR* Midazolam HCl 5 MG/5 ML VIAL IVP PRN ×5 (13:10→13:41)
[2016-07-24] MEDS: *HR* FentaNYL (PF) 100 MCG/2 ML VIAL IVP PRN ×4 (13:10→13:41)
[2016-07-24] MEDS ORDERED: Simethicone 40 MG/0.6 ML MLS IR ONE (13:26)
[2016-07-24] MEDS ORDERED: Tetracaine/Benzocaine/Butamben 200MG/SPRAY (100SPY/BOT) MM ONE (13:26)
[2016-07-24] MEDS ORDERED: 0.9 % Sodium Chloride 1,000 ML IVC SCH (13:30)
--- NOTE | 2016-07-24 15:05 | Discharge Summary ---
Date of Encounter: 07/24/16 Time of Encounter: 14:58 - Discharge Diagnosis (1) Anemia Status: Acute Comments: Patient underwent EGD/Colonoscopy this am to investigate etiology of anemia EGD revealed gastritis, duodenal polyp, normal esophagus Colonoscopy revealed 5mm sessile polyp in descending colon, diverticulosis Biopsies of gastric tissue and polyps taken, pathology pending Qualifiers: Anemia type: iron deficiency Iron deficiency anemia type: unspecified iron deficiency Qualified Code(s): D50.9 - Iron deficiency anemia, unspecified (2) Chest pain Status: Acute Qualifiers: Chest pain type: precordial pain Qualified Code(s): R07.2 - Precordial pain (3) Diabetes mellitus Status: Acute Qualifiers: Diabetes mellitus type: type 2 Diabetes mellitus complication status: without complication Diabetes mellitus prison insulin use: without dedicated intermodal truck driver use Qualified Code(s): E11.9 - Type 2 diabetes mellitus without complications - Discharge Medications Home Medications: Atorvastatin [Lipitor] 40 mg PO HS 06/05/16 [History] Escitalopram [Lexapro] 20 mg PO DAILY 06/05/16 [History] Ezetimibe [Zetia] 10 mg PO DAILY 06/05/16 [History] Levothyroxine [Synthroid] 100 mcg PO DAILY 06/05/16 [History] Losartan Potassium [Cozaar] 50 mg PO DAILY 06/05/16 [History] Omeprazole [PriLOSEC] 20 mg PO DAILY 06/05/16 [History] Tizanidine HCl 4 mg PO HS PRN 06/05/16 [History] AcetaZOLAMIDE [Acetazolamide] 500 mg PO BID 07/21/16 [History] Vitamin D3 07/21/16 [History] Allergies/Adverse Reactions: Allergies Penicillins [PCN] Allergy (Verified 05/17/15 08:45) Rash Procedures/tests Complete & Pending: Procedures Performed prior 72 hours Category Date Time Status ECG 12 lead ECG [ECG] Routine Y 07/21/16 17:44 Ordered EKG [ECG 12 lead ECG] [ECG] Stat Y 07/22/16 00:43 Completed EV echocardiogram Routine Y 07/22/16 17:35 Completed Date of admission: 07/21/16 17:24 Primary care physician: Francine Wood Consults: 07/21/16 17:43 Consult to Cardiology [CONS] Routine Comment: Consulting Provider: Cardiology Michelle Reason for Consult: NSTEMI Time Notified: 17:30 Call Completed: Yes 07/21/16 17:44 Consult to Cardiac Rehabilitation-Phase1 [CONS] Routine Comment: Reason for Consult: AMI Call Completed: Yes Consult to Nurse Navigator [CONS] Routine Comment: 07/21/16 20:08 Consult to Nutrition [CONS] Routine Comment: Consulting Provider: NUTRITION Reason for Dietary Consult: Diet Education 07/23/16 16:55 Consult to Gastroenterology [CONS] Routine Consulting Provider: Gastroenterology Whigham Reason for Consult: persistent diarrhea, Fe def anemia, weight loss Call Completed: Yes Discharging clinician: Melvin Jackson Anticipated date of discharge: 07/24/16 - Patient Status Condition: Critical - Discharge Instructions Follow Up With: Francine Wood MD [Primary Care Provider] - Hospital course: Ms. Ludwig is a 61 year old female - Time Spent with Patient Total time spent providing and/or coordinating discharge services: - Constitutional Vitals: Temp Pulse Resp BP Pulse Ox 98.8 F 77 16 144/83 97 07/24/16 14:30 07/24/16 14:30 07/24/16 14:30 07/24/16 14:30 07/24/16 14:30 General appearance: Present: A&O X 3, obese, answers questions appropriately
[2016-07-24] MEDS: (Ezetimibe [Zetia] 10 MG) PO SCH (15:35)
[2016-07-24] MEDS: Aspirin 81 MG TAB.CHEW PO SCH (15:45)
[2016-07-24] MEDS: Folic Acid 1 MG TABLET PO SCH (15:45)
--- NOTE | 2016-07-24 16:06 | Internal Med Progress Note ---
<Moon Singer Wilfrido - Last Filed: 07/24/16 17:47> Date of Encounter: 07/24/16 Time of Encounter: 15:05 - Assessment and plan (1) Anemia Current Visit: Yes Status: Acute Assessment and plan: Patient underwent EGD/Colonoscopy this am to investigate etiology of anemia EGD revealed gastritis, duodenal polyp, normal esophagus Colonoscopy revealed 5mm sessile polyp in descending colon, diverticulosis Biopsies of gastric tissue and polyps taken, pathology pending Anemia appears to be microcytic/hypochromic and may be related to gastritis However, we will further investigate multiple vitamin deficiency Iron level 14, % iron sat 3, transferrin 286, Folate 4.3, Vitamin B12 301 Patient does complain of chronic diarrhea x 3 years, however states this is due to Plan: Will check markers for celiac disease Tissue transglutaminase IgA and IgG, pending Reticulocyte count LDH Methylmalonic acid Qualifiers: Anemia type: iron deficiency Iron deficiency anemia type: unspecified iron deficiency Qualified Code(s): D50.9 - Iron deficiency anemia, unspecified (2) Chest pain Current Visit: Yes Status: Acute Assessment and plan: Unlikely cardiac Troponin trending down, possible demand ischemia Continue to observe closely Qualifiers: Chest pain type: precordial pain Qualified Code(s): R07.2 - Precordial pain (3) Diabetes mellitus Current Visit: Yes Status: Acute Assessment and plan: ACHS Qualifiers: Diabetes mellitus type: type 2 Diabetes mellitus complication status: without complication Diabetes mellitus snf insulin use: without moth exterminator use Qualified Code(s): E11.9 - Type 2 diabetes mellitus without complications (4) Low folate Current Visit: Yes Status: Acute Assessment and plan: Replace 1mg po daily Will recheck (5) Hypokalemia Current Visit: Yes Status: Acute Assessment and plan: Will replace 40mEq q day Mg level 1.6 Trend electrolytes (6) DVT prophylaxis Current Visit: Yes Status: Acute - Time Spent With Patient less than 15 minutes - Subjective Interval history: Patient is sleeping comfortably in bed following EGD/Colonoscopy. When awakened , she responds to questions in sluggish manner. Admits to diarrhea for the last 3 year. She states that this problem began following cholecystectomy. - Constitutional Vitals: Temp Pulse Resp BP Pulse Ox 98.8 F 77 16 144/83 97 07/24/16 14:30 07/24/16 14:30 07/24/16 14:30 07/24/16 14:30 07/24/16 14:30 General appearance: Present: A&O X 3, obese, answers questions appropriately ( sluggish responses to questions. she is s/p EGD/colonoscopy. ) - Head Head exam: Present: atraumatic, normal inspection, normocephalic - Eye Eye exam: Present: EOMI, PERRL - ENT ENT exam: Present: mucous membranes moist - Neck Neck exam general surgery: Present: full ROM - Respiratory Respiratory exam: Present: CTAB. Absent: respiratory distress, rhonchi, tachypnea - Cardiovascular Cardiovascular exam: Present: RRR, +S1, +S2 - GI/Abdominal GI/Abdominal exam: Present: normal bowel sounds, soft (obese). Absent: hepatomegaly, splenomegaly, tenderness - Extremities Exam Extremities exam: Present: warm. Absent: pedal edema - Neurological Exam Neurological exam: Present: CN II-XII intact. Absent: facial droop, speech deficit - Psychiatric Psychiatric exam: Present: normal affect, normal mood - Skin Skin exam: Present: dry, warm. Absent: rash Internal Medicine: Result - Labs CBC & Chem 7: 07/24/16 05:47 07/24/16 05:47 Labs: Short CBC 07/24/16 Range/Units 05:47 WBC 11.8 H (4.3-11.1) K/mcL Hgb 7.9 L (11.5-15.4) g/dL Hct 29.8 L (35.3-44.9) % Plt Count 363 (140-400) K/mcL Neutrophils # 9.3 H (1.6-8.9) K/mcL BMP 07/24/16 05:47 Sodium 139 Potassium 3.3 L Chloride 109 Carbon Dioxide 20 BUN 13 Creatinine 0.82 Glucose 152 H Calcium 9.1 Liver Function 07/24/16 Range/Units 05:47 Total Bilirubin 1.4 H (0.2-1.2) mg/dL AST 12 (5-34) Units/L ALT 6 (0-55) Units/L Alkaline Phosphatase 131 H (38-126) Units/L Albumin 3.3 L (3.5-5.0) g/dL Consult Discharge Plan - Plan Referrals: Francine Wood MD [Primary Care Provider] - 08/01/16 1:45 pm <Melvin Jackson P - Last Filed: 07/24/16 17:59> - Assessment and plan (1) Anemia Current Visit: Yes Status: Acute Qualifiers: Anemia type: iron deficiency Iron deficiency anemia type: unspecified iron deficiency Qualified Code(s): D50.9 - Iron deficiency anemia, unspecified (2) Chest pain Current Visit: Yes Status: Acute Qualifiers: Chest pain type: precordial pain Qualified Code(s): R07.2 - Precordial pain (3) Diabetes mellitus Current Visit: Yes Status: Acute Qualifiers: Diabetes mellitus type: type 2 Diabetes mellitus complication status: without complication Diabetes mellitus snf insulin use: without snf use Qualified Code(s): E11.9 - Type 2 diabetes mellitus without complications - Constitutional Vitals: Temp Pulse Resp BP Pulse Ox 98.8 F 77 16 144/83 97 07/24/16 14:30 07/24/16 14:30 07/24/16 14:30 07/24/16 14:30 07/24/16 14:30 Internal Medicine: Result - Labs CBC & Chem 7: 07/24/16 05:47 07/24/16 05:47 Labs: Short CBC 07/24/16 Range/Units 05:47 WBC 11.8 H (4.3-11.1) K/mcL Hgb 7.9 L (11.5-15.4) g/dL Hct 29.8 L (35.3-44.9) % Plt Count 363 (140-400) K/mcL Neutrophils # 9.3 H (1.6-8.9) K/mcL BMP 07/24/16 05:47 Sodium 139 Potassium 3.3 L Chloride 109 Carbon Dioxide 20 BUN 13 Creatinine 0.82 Glucose 152 H Calcium 9.1 Liver Function 07/24/16 Range/Units 05:47 Total Bilirubin 1.4 H (0.2-1.2) mg/dL AST 12 (5-34) Units/L ALT 6 (0-55) Units/L Alkaline Phosphatase 131 H (38-126) Units/L Albumin 3.3 L (3.5-5.0) g/dL - Attending Attestation I examined this patient and my medical decision-making was reviewed with the THERAPIST OCCUPATIONAL/PA/Advanced Practice Nurse/Resident Physician. I agree with the documented findings, disposition and treatment plan as described except to the extent set forth below. admitted with chest pain. Demand ischimia. noted [facility] anemia with weight loss and chronic diarrhea. Underwent EGD and Colonoscopy. No gross abnormality. need further work up, possible haem consult.
[2016-07-24] MEDS: *HR* Heparin 5,000 UNIT/ML VIAL SQ SCH (17:59)
[2016-07-24] MEDS ORDERED: 0.9 % Sodium Chloride 250 ML ONE (19:34)
[2016-07-25 06:08] LABS: Immature Reticulocyte % 37.3 % (11.0-38.0); Retculocyte # 0.09 M/mcL (0.05-0.10); Reticulocyte % 2.1 % (1.6-2.8)
[2016-07-25 06:28] LABS: Lactate Dehydrogenase 207 Units/L (159-327)
[2016-07-25] MEDS: *HR* Heparin 5,000 UNIT/ML VIAL SQ SCH (06:31)
[2016-07-25 06:46] LABS: Immature Granulocytes % 0.5 % (0-4)
[2016-07-25 06:47] LABS: Basophils % 0.4 %; Eosinophils # 0.1 K/mcL (0.0-0.6); Eosinophils % 1.3 %; Hematocrit 29.6 % (35.3-44.9); Hemoglobin 7.7 g/dL (11.5-15.4); Lymphocytes # 2.1 K/mcL (0.6-4.6); Mean Corpuscular Volume 69.3 fL (83.0-100.0); Mean Platelet Volume 11.2 fL (9.4-12.4); Monocytes # 0.7 K/mcL (0.0-1.3); Monocytes % 5.9 %; Platelet Count 295 K/mcL (140-400); Red Blood Count 4.27 M/mcL (3.82-4.97); Red Cell Distribution Width 18.7 % (11.5-14.5); Segmented Neutrophils % 72.9 %
[2016-07-25 06:53] LABS: Anisocytosis 2+ (Not Present); Hypochromasia Present (Not Present); Microcytosis Present (Not Present); Poikilocytosis 2+ (Not Present)
[2016-07-25 06:54] LABS: Ovalocytes 2+ (Not Present)
[2016-07-25 06:55] LABS: Platelet Estimate Normal (Normal)
[2016-07-25 07:24] LABS: Albumin 3.1 g/dL (3.5-5.0); Albumin/Globulin Ratio 0.8 (1.1-2.2); Alkaline Phosphatase 130 Units/L (38-126); Aspartate Amino Transferase 14 Units/L (5-34); BUN/Creatinine Ratio 14 (6-26); Bilirubin,Direct 0.6 mg/dL (0.0-0.5); Bilirubin,Total 1.6 mg/dL (0.2-1.2); Blood Urea Nitrogen 10 mg/dL (7-20); Calcium 9.1 mg/dL (8.6-10.8); Carbon Dioxide 20 mEq/L (19-29); Chloride 112 mEq/L (98-109); Globulin 4.1 g/dL (2.4-3.5); Glucose 124 mg/dL (70-99); Magnesium 1.5 mg/dL (1.6-2.6); Osmolality,Calculated 292 (280-300); Potassium 4.1 mEq/L (3.5-4.5); Sodium 141 mEq/L (136-145); Total Protein 7.2 g/dL (6.0-8.3); eGFR For African Americans > 60 (> 60); eGFR For Non-African Americans > 60 (> 60)
[2016-07-25 07:37] LABS: Alanine Aminotransferase < 6 Units/L (0-55)
[2016-07-25] MEDS: Aspirin 81 MG TAB.CHEW PO SCH (09:18)
[2016-07-25] MEDS: Folic Acid 1 MG TABLET PO SCH (09:18)
[2016-07-25] MEDS: (Ezetimibe [Zetia] 10 MG) PO SCH (09:19)
[2016-07-25] MEDS: Insulin LISPRO 300 UNITS/3 ML VIAL SQ SCH ×4 (09:20→20:40)
--- NOTE | 2016-07-25 10:23 | Oncology Inp Consult Note ---
Date of Encounter: 07/25/16 Time of Encounter: 13:00 Assessment and Plan (1) Anemia Status: Chronic Assessment and plan: Microcytic, patient reports that she was diagnosed about 2 years ago with this problem, hence it seems to be chronic. Iron studies are concerning for deficiency. EGD and colonoscopy have been negative for a bleeding lesion, but cannot r/o an intermittently bleeding AVM. Agree with w/u for celiac disease especially given her hx of hypothyroidism, alternating diarrhea and a brother diagnosed with celiac disease. Finally, urinary loss of hemosiderin in the setting of chronic hemolysis needs to be ruled out, although this is unlikely given a normal LDH. Recommend checking haptoglobin. Recommend transfusion of 1 U PRBC given the fact that her anemia is symptomatic. Worsening hgb in the hospital could be related to phlebotomies and hemodilution. Will see her in clinic next week and I will schedule her for IV iron at that time. Qualifiers: Anemia type: iron deficiency Iron deficiency anemia type: unspecified iron deficiency Qualified Code(s): D50.9 - Iron deficiency anemia, unspecified (2) Low folate Status: Acute Assessment and plan: Unusual given her normal diet and no medications that would interfere with folate metabolism. Recommend folic acid supplementation at 1 mg/day. Will recheck in three months. - Data of Consult Requesting Physician: Clayton Devries DO Primary Care Provider: Francine Wood - Consult Narrative Reason for consult: Microcytic anemia History of present illness: Ms. Ludwig is a 61 year old female with a history of hypertension, diabetes mellitus, hypothyroidism, MRDD who presented to the emergency room with a complaint of shortness of breath and chest pain which was worse with exertion. Initial troponins were elevated and she has been evaluated by cardiology, who feel that the chest pain may be due to supply-demand mismatch related to the anemia. She was noted to have a hemoglobin of 8.2 at admission, with a low MCV. Stool was negative for occult blood. She underwent a colonoscopy and EGD. The EGD was positive for gastritis but there were no bleeding lesions. Colonoscopy showed a 5 mm sessile polyp and no bleeding lesions. Iron studies show a serum iron of 14, iron saturation 3, transferrin 286 and calculated TIBC of 500. Ferritin is pending. Folate is low at 4.3. Hematology is consulted to further evaluate the microcytic anemia. HIstory is obtained from the patient and her parents at bedside. THe patient reports that she was first told about anemia about 2 years ago when she went to donate blood. Over the past six months she has had nausea, alternating diarrhea and a 40 lb wt loss. She denied any fever or night sweats but has been feeling very cold. She reports that the diarrhea is much worse after certain foods. Reports that one of her brothers was diagnosed with celiac disease. Denied any blood in stool or dark tarry stool. Of note, she has a history of having three functioning kidneys. Past Med Surg Social Fam HX - Past Medical History Medical history: diabetes, GERD, hyperlipidemia, hypertension, other Psychiatric history: depression - Past Surgical History Surgical History: appendectomy, cholecystectomy, hysterectomy, other - Social History Smoking Status: Never smoker Smokeless Tobacco Status: No Alcohol use: none Drug use: none - Family History Father Living Status: Still Living Hx Family Endocrine Disorder: Yes Brother Living Status: Still Living Hx Family Endocrine Disorder: Yes Medications and Allergies Atorvastatin [Lipitor] 40 mg PO HS 06/05/16 [History] Escitalopram [Lexapro] 20 mg PO DAILY 06/05/16 [History] Ezetimibe [Zetia] 10 mg PO DAILY 06/05/16 [History] Levothyroxine [Synthroid] 100 mcg PO DAILY 06/05/16 [History] Losartan Potassium [Cozaar] 50 mg PO DAILY 06/05/16 [History] Omeprazole [PriLOSEC] 20 mg PO DAILY 06/05/16 [History] Tizanidine HCl 4 mg PO HS PRN 06/05/16 [History] AcetaZOLAMIDE [Acetazolamide] 500 mg PO BID 07/21/16 [History] Vitamin D3 07/21/16 [History] Allergies Penicillins [PCN] Allergy (Verified 05/17/15 08:45) Rash All systems: reviewed and no additional remarkable complaints except as stated Oncology - Exam - Constitutional Vitals: Temp Pulse Resp BP Pulse Ox 98.8 F 75 20 146/57 94 L 07/25/16 07:43 07/25/16 07:43 07/25/16 07:43 07/25/16 07:43 07/25/16 07:43 General appearance: cooperative, no acute distress, obese - Head Head exam: Present: atraumatic, normocephalic - Eye Eye exam: Present: EOMI, PERRL - ENT ENT exam: Present: mucous membranes moist, normal exam, normal oropharynx - Neck Neck exam: Present: full ROM, normal inspection - Respiratory Respiratory exam: Present: CTAB - Cardiovascular Cardiovascular exam: Present: RRR, +S1, +S2 - GI/Abdominal GI/Abdominal exam: Present: normal bowel sounds, soft - Extremities Exam Extremities exam: Present: full ROM, normal inspection - Neurological Exam Neurological exam: Present: alert, altered, oriented X3, no focal deficits Oncology - Results - Labs Labs: Short CBC 07/25/16 Range/Units 05:44 WBC 11.0 (4.3-11.1) K/mcL Hgb 7.7 L (11.5-15.4) g/dL Hct 29.6 L (35.3-44.9) % Plt Count 295 (140-400) K/mcL Neutrophils # 8.0 (1.6-8.9) K/mcL BMP 07/25/16 05:44 Sodium 141 Potassium 4.1 Chloride 112 H Carbon Dioxide 20 BUN 10 Creatinine 0.73 Glucose 124 H Calcium 9.1 Liver Function 07/25/16 Range/Units 05:44 Total Bilirubin 1.6 H (0.2-1.2) mg/dL Direct Bilirubin 0.6 H (0.0-0.5) mg/dL AST 14 (5-34) Units/L ALT < 6 (0-55) Units/L Alkaline Phosphatase 130 H (38-126) Units/L Albumin 3.1 L (3.5-5.0) g/dL Consult Discharge Plan - Plan Referrals: Francine Wood MD [Primary Care Provider] - 08/01/16 1:45 pm
[2016-07-25 11:51] LABS: Ferritin 11 ng/ml (5-204)
--- NOTE | 2016-07-25 17:03 | Internal Med Progress Note ---
<Laurita Reyes - Last Filed: 07/25/16 17:01> Date of Encounter: 07/25/16 Time of Encounter: 10:00 - Assessment and plan (1) Anemia Current Visit: Yes Status: Chronic Assessment and plan: Hg today 7.7. Patient had EGD/colonoscopy. EGD showed normal esophagus with inflammation in stomach-biopsied and results pending. Colonoscopy revealed diverticula and polyp. Stool occult blood was negative. TSH normal. B12 normal. Folate low- supplementing. Iron, %saturation, and transferrin low- iron supplementing. Anemia appears microcytic/hypochromic. Celiac disease markers, MMA, Haptoglobin levels pending- likely won't have results until the end of week. Consult to oncology made- they recommend seeing her outpatient in clinic next week, at that point they will schedule for IV iron. Will re check H&H tomorrow. If stable, plan to discharge home without outpatient follow up with GI and heme/onc. Qualifiers: Anemia type: iron deficiency Iron deficiency anemia type: unspecified iron deficiency Qualified Code(s): D50.9 - Iron deficiency anemia, unspecified (2) Chest pain Current Visit: Yes Status: Acute Assessment and plan: Patient had originally come to the hospital with CC of chest pain. Initial troponins high- likely due to demand ischemia in setting of anemia. Patient denies having any chest pain today. Unlikely cardiac origin. Will continue with anemia workup. Qualifiers: Chest pain type: precordial pain Qualified Code(s): R07.2 - Precordial pain (3) Diabetes mellitus Current Visit: Yes Status: Acute Assessment and plan: Low dose sliding scale insulin with ACHS accuchecks. Qualifiers: Diabetes mellitus type: type 2 Diabetes mellitus complication status: without complication Diabetes mellitus fdc insulin use: without fdc use Qualified Code(s): E11.9 - Type 2 diabetes mellitus without complications (4) Hypertension Current Visit: Yes Status: Acute Assessment and plan: continue metoprolol, Losartan. Qualifiers: Hypertension type: essential hypertension Qualified Code(s): I10 - Essential (primary) hypertension (5) Hypokalemia Current Visit: Yes Status: Acute Assessment and plan: resolved. Continue with 20mEq replacement daily. (6) Hypothyroid Current Visit: Yes Status: Acute Assessment and plan: continue home med levothyroxine. Qualifiers: Hypothyroidism type: unspecified Qualified Code(s): E03.9 - Hypothyroidism , unspecified (7) DVT prophylaxis Current Visit: Yes Status: Acute Assessment and plan: EPCD - Subjective Interval history: 61 year old female evaluated at bedside. Patient states she feels better today. She denies Nausea, vomiting, fever, chills. She denies dizziness, denies any pain. She denies blood in stool. She denies chest pain, and has no complaints today. - Constitutional Vitals: Temp Pulse Resp BP Pulse Ox 98.1 F 73 16 134/73 90 L 07/25/16 16:38 07/25/16 16:38 07/25/16 16:38 07/25/16 16:38 07/25/16 16:38 General appearance: Present: A&O X 3, pleasant, obese, answers questions appropriately (sluggish responses to questions. she is s/p EGD/colonoscopy. ) - Head Head exam: Present: atraumatic - Eye Additional comments: conjunctival pallor. - Neck Neck exam general surgery: Present: supple, trachea midline - Respiratory Respiratory exam: Present: CTAB - Cardiovascular Cardiovascular exam: Present: RRR, +S1, +S2 - GI/Abdominal GI/Abdominal exam: Present: normal bowel sounds, soft Additional comments: obese, striae present. soft, non distended, non tender. - Extremities Exam Extremities exam: Present: pedal edema (trace lower extremity edema. normal capillary refil. ) Additional comments: trace lower extremity edema, normal capillary refill. pulses palpable bilaterally. - Neurological Exam Neurological exam: Present: alert, oriented X3 Additional comments: patient has baseline mental retardation. - Psychiatric Psychiatric exam: Present: normal mood Internal Medicine: Result - Labs CBC & Chem 7: 07/25/16 05:44 07/25/16 05:44 Labs: Short CBC 07/25/16 Range/Units 05:44 WBC 11.0 (4.3-11.1) K/mcL Hgb 7.7 L (11.5-15.4) g/dL Hct 29.6 L (35.3-44.9) % Plt Count 295 (140-400) K/mcL Neutrophils # 8.0 (1.6-8.9) K/mcL BMP 07/25/16 05:44 Sodium 141 Potassium 4.1 Chloride 112 H Carbon Dioxide 20 BUN 10 Creatinine 0.73 Glucose 124 H Calcium 9.1 Liver Function 07/25/16 Range/Units 05:44 Total Bilirubin 1.6 H (0.2-1.2) mg/dL Direct Bilirubin 0.6 H (0.0-0.5) mg/dL AST 14 (5-34) Units/L ALT < 6 (0-55) Units/L Alkaline Phosphatase 130 H (38-126) Units/L Albumin 3.1 L (3.5-5.0) g/dL Consult Discharge Plan - Plan Referrals: Francine Wood MD [Primary Care Provider] - 08/01/16 1:45 pm <Clayton Devries - Last Filed: 07/25/16 18:24> - Assessment and plan (1) Hypokalemia Current Visit: Yes Status: Acute (2) Anemia Current Visit: Yes Status: Chronic Qualifiers: Anemia type: iron deficiency Iron deficiency anemia type: unspecified iron deficiency Qualified Code(s): D50.9 - Iron deficiency anemia, unspecified (3) Diabetes mellitus Current Visit: Yes Status: Acute Qualifiers: Diabetes mellitus type: type 2 Diabetes mellitus complication status: without complication Diabetes mellitus moth exterminator insulin use: without fdc use Qualified Code(s): E11.9 - Type 2 diabetes mellitus without complications (4) Hypertension Current Visit: Yes Status: Acute Qualifiers: Hypertension type: essential hypertension Qualified Code(s): I10 - Essential (primary) hypertension (5) Diarrhea Current Visit: Yes Status: Chronic Qualifiers: Diarrhea type: unspecified type Qualified Code(s): R19.7 - Diarrhea, unspecified - Constitutional Vitals: Temp Pulse Resp BP Pulse Ox 98.1 F 73 16 134/73 90 L 07/25/16 16:38 07/25/16 16:38 07/25/16 16:38 07/25/16 16:38 07/25/16 16:38 Internal Medicine: Result - Labs CBC & Chem 7: 07/25/16 05:44 07/25/16 05:44 Labs: Short CBC 07/25/16 Range/Units 05:44 WBC 11.0 (4.3-11.1) K/mcL Hgb 7.7 L (11.5-15.4) g/dL Hct 29.6 L (35.3-44.9) % Plt Count 295 (140-400) K/mcL Neutrophils # 8.0 (1.6-8.9) K/mcL BMP 07/25/16 05:44 Sodium 141 Potassium 4.1 Chloride 112 H Carbon Dioxide 20 BUN 10 Creatinine 0.73 Glucose 124 H Calcium 9.1 Liver Function 07/25/16 Range/Units 05:44 Total Bilirubin 1.6 H (0.2-1.2) mg/dL Direct Bilirubin 0.6 H (0.0-0.5) mg/dL AST 14 (5-34) Units/L ALT < 6 (0-55) Units/L Alkaline Phosphatase 130 H (38-126) Units/L Albumin 3.1 L (3.5-5.0) g/dL - Attending Attestation I examined this patient and my medical decision-making was reviewed with the Resident Physician on 07/25/16. I agree with the documented findings, disposition and treatment plan as described except to the extent set forth below. Ms. Ludwig is currently for acute chest pain and possible NSTEMI - ruled out. She is currently in process of work up of anemia. She is moderate risk due to potential for worsening cardiac and respiratory symptoms Ms. Ludwig is eating lunch. Her parents are at bedside. Bloodwork is still pending. No new symptoms. No fever or chills noted. Exam Alert. Comfortable Heart reg Lungs clear No edema I/P 1. Anemia - appreciate input from consultants. Recheck in AM 2. HTN 3. Hypothyroid 4. Diabetes Further diagnoses and plan as above.
[2016-07-26 06:23] LABS: Basophils % 0.5 %; Eosinophils % 1.2 %; Nucleated Red Blood Cells 0.4 /100 WBC (0)
[2016-07-26 06:25] LABS: Basophils # 0.1 K/mcL (0.0-0.2); Eosinophils # 0.1 K/mcL (0.0-0.6); Hematocrit 27.9 % (35.3-44.9); Hemoglobin 7.3 g/dL (11.5-15.4); Immature Granulocytes % 1.2 % (0-4); Lymphocytes # 2.2 K/mcL (0.6-4.6); Lymphocytes % 19.3 %; Mean Corpuscular HGB Conc 26.2 g/dL (31.6-35.5); Mean Corpuscular Hemoglobin 17.7 pg (28.0-33.3); Mean Corpuscular Volume 67.7 fL (83.0-100.0); Mean Platelet Volume 10.5 fL (9.4-12.4); Monocytes # 0.6 K/mcL (0.0-1.3); Monocytes % 5.6 %; Neutrophils # 8.2 K/mcL (1.6-8.9); Platelet Count 388 K/mcL (140-400); Red Blood Count 4.12 M/mcL (3.82-4.97); Red Cell Distribution Width 18.9 % (11.5-14.5); Segmented Neutrophils % 72.2 %
[2016-07-26 06:34] LABS: Albumin/Globulin Ratio 0.7 (1.1-2.2); Alkaline Phosphatase 125 Units/L (38-126); Aspartate Amino Transferase 13 Units/L (5-34); BUN/Creatinine Ratio 15 (6-26); Bilirubin,Total 1.2 mg/dL (0.2-1.2); Blood Urea Nitrogen 11 mg/dL (7-20); Calcium 9.3 mg/dL (8.6-10.8); Carbon Dioxide 24 mEq/L (19-29); Chloride 108 mEq/L (98-109); Globulin 4.1 g/dL (2.4-3.5); Glucose 131 mg/dL (70-99); Magnesium 1.5 mg/dL (1.6-2.6); Osmolality,Calculated 293 (280-300); Sodium 141 mEq/L (136-145); Total Protein 7.1 g/dL (6.0-8.3); eGFR For African Americans > 60 (> 60); eGFR For Non-African Americans > 60 (> 60)
[2016-07-26 06:43] LABS: Alanine Aminotransferase < 6 Units/L (0-55)
[2016-07-26] MEDS: Folic Acid 1 MG TABLET PO SCH (07:53)
[2016-07-26] MEDS: Aspirin 81 MG TAB.CHEW PO SCH (07:53)
[2016-07-26] MEDS: Insulin LISPRO 300 UNITS/3 ML VIAL SQ SCH ×4 (07:55→23:12)
[2016-07-26] MEDS: (Ezetimibe [Zetia] 10 MG) PO SCH (07:56)
[2016-07-26 08:28] LABS: Anisocytosis 2+ (Not Present); Hypochromasia Present (Not Present); Microcytosis Present (Not Present)
[2016-07-26 08:29] LABS: Platelet Estimate Normal (Normal)
[2016-07-26] MEDS ORDERED: Magnesium Sulfate 2 GM in D5% in Water 100 ML IVPB ONE (10:13)
--- NOTE | 2016-07-26 11:23 | Discharge Summary ---
<EricLaurita - Last Filed: 07/26/16 11:21> Date of Encounter: 07/26/16 Time of Encounter: 08:00 - Discharge Diagnosis (1) Anemia Priority: Primary Status: Chronic Qualifiers: Anemia type: iron deficiency Iron deficiency anemia type: unspecified iron deficiency Qualified Code(s): D50.9 - Iron deficiency anemia, unspecified (2) Chest pain Priority: Secondary Status: Acute Qualifiers: Chest pain type: precordial pain Qualified Code(s): R07.2 - Precordial pain (3) Diabetes mellitus Priority: Secondary Status: Acute Qualifiers: Diabetes mellitus type: type 2 Diabetes mellitus complication status: without complication Diabetes mellitus care home insulin use: without parts counterman use Qualified Code(s): E11.9 - Type 2 diabetes mellitus without complications (4) Hypertension Priority: Secondary Status: Acute Qualifiers: Hypertension type: essential hypertension Qualified Code(s): I10 - Essential (primary) hypertension (5) Hypokalemia Priority: Secondary Status: Acute (6) Hypothyroid Priority: Secondary Status: Acute Qualifiers: Hypothyroidism type: unspecified Qualified Code(s): E03.9 - Hypothyroidism , unspecified (7) DVT prophylaxis Priority: Secondary Status: Acute - Discharge Medications Prescriptions: Folic Acid 1 mg PO DAILY #30 tablet Home Medications: Atorvastatin [Lipitor] 40 mg PO HS 06/05/16 [History] Escitalopram [Lexapro] 20 mg PO DAILY 06/05/16 [History] Ezetimibe [Zetia] 10 mg PO DAILY 06/05/16 [History] Levothyroxine [Synthroid] 100 mcg PO DAILY 06/05/16 [History] Losartan Potassium [Cozaar] 50 mg PO DAILY 06/05/16 [History] Omeprazole [PriLOSEC] 20 mg PO DAILY 06/05/16 [History] Tizanidine HCl 4 mg PO HS PRN 06/05/16 [History] AcetaZOLAMIDE [Acetazolamide] 500 mg PO BID 07/21/16 [History] Vitamin D3 07/21/16 [History] Aspirin 81 mg PO DAILY tab.chew 07/26/16 [Rx] Folic Acid 1 mg PO DAILY #30 tablet 07/26/16 [Rx] Allergies/Adverse Reactions: Allergies Penicillins [PCN] Allergy (Verified 05/17/15 08:45) Rash Date of admission: 07/21/16 17:24 Primary care physician: Francine Wood Consults: 07/21/16 17:43 Consult to Cardiology [CONS] Routine Comment: Consulting Provider: Cardiology Michelle Reason for Consult: NSTEMI Time Notified: 17:30 Call Completed: Yes 07/21/16 17:44 Consult to Cardiac Rehabilitation-Phase1 [CONS] Routine Comment: Reason for Consult: AMI Call Completed: Yes Consult to Nurse Navigator [CONS] Routine Comment: 07/21/16 20:08 Consult to Nutrition [CONS] Routine Comment: Consulting Provider: NUTRITION Reason for Dietary Consult: Diet Education 07/23/16 16:55 Consult to Gastroenterology [CONS] Routine Consulting Provider: Gastroenterology Voltaire Reason for Consult: persistent diarrhea, Fe def anemia, weight loss Call Completed: Yes 07/25/16 07:19 Consult to Oncology Hematology [CONS] Routine Consulting Provider: Cheryle Nunez Reason for Consult: microcytic anemia, low folate Call Completed: Yes - Patient Status Disposition: Home, Self-Care Condition: Good Functional capacity at discharge: independent ambulation Overall status at discharge: patient is back to baseline - Discharge Instructions Instructions: Folic Acid (By mouth), Hypothyroidism (DC), Diabetes Mellitus Type 2 in Adults (DC), Chronic Hypertension (DC), Dyspnea (GEN), Anemia (GEN) Follow Up With: Francine Wood MD [Primary Care Provider] - 08/01/16 1:45 pm Cheryle Nunez MD [Partnered Physician] - 07/31/16 10:00 am Elmer Coronado MD [Partnered Physician] - Additional Instructions: Follow-up appointments: If there is not an appointment listed below, please call your physician and schedule a follow-up appointment. If you have congestive heart failure and your symptoms return, make an appointment with your physician. Symptoms: If your condition changes or you experience any of the following symptoms, notify your physician immediately: Unusual or worsening pain, fever, persistent nausea and vomiting, bleeding, increase in swelling (especially in your legs), sudden weight gain, extreme dizziness, chest pain, increased drainage or redness from a wound or incision. Go to the emergency department if you experience a problem with breathing. Weights: If you have a history of swelling or shortness of breath, weigh yourself daily and notify your physician if you have a weight gain of two or more pounds in one day or 5 or more pounds in a week. If you experience any of the warning signs for stroke: Sudden numbness or weakness of the face, arm or leg; especially on one side of the body, sudden confusion, trouble speaking or understanding, sudden trouble seeing in one or both eyes, sudden trouble walking, dizziness, loss of balance or coordination, sudden sever headache with no cause; Call 911 or go to the emergency room. Stroke is a medical emergency. Some risk factors for stroke: Age, cigarette smoking, diabetes, excessive alcohol consumption, family history , high blood pressure, overweight, physical inactivity, prior stroke, heart attack, diagnosis of carotid artery stenosis or other artery disease. If you smoke, STOP: Smoking or tobacco use significantly increases your risk of heart and lung disease. Your chance of disease greatly increases if you continue to smoke. For more information, call the [employer] quit line for smoking cessation QUIT-NOW ( ) - Diet and Activity Activity: resume usual activities as tolerated Diet: diabetic diet Interval History: Ms. Ludwig is a 61 year old female with PMHx of hypertension diabetes hypothyroidism GERD hyperlipidemia. Patient originally came to the hospital with CC of shortness of breath upon exertion. She also complained of 10/10 chest pain. Troponins were initially elevated but trended down overnight, no acute EKG changes were noted. Her chest pain was very unlikely cardiac in nature and likely due to demand ischemia in setting of anemia (Hg initially measured at 7.4. Patient was found to have microcytic/hypochromic anemia and had anemia work up done. Stool occult blood was negative. Patient had EGD/ Colonoscopy done while in the hospital. EGD showed normal esophagus with inflammation in stomach with biopsies taken. Colonoscopy revealed a diverticula and polyp. Patient was found to have low iron. Celiac disease markers and methylmalonic acid, haptoglobin levels were ordered, but results were not back during the course of the hospital stay. Consult to hematology was made, and hematology recommended that patient be seen outpatient and be scheduled for IV iron at that time. During the course of the hospital stay, patient was stable, her Hemoglobin remained stable and she required no blood transfusions. Plan: Follow up with PCP within one week. Continue folic acid supplements. Follow up with Oncology- appointment will be made by clinical secretary. ROHIT within one week after discharge to check potassium levels. Follow up with Gastroenterology-Dr. Coronado- work up for anemia started in hospital. Must discuss biopsy results from EGD. Hospital course: Ms. Ludwig is a 61 year old female - Time Spent with Patient Total time spent providing and/or coordinating discharge services: - Constitutional Vitals: Temp Pulse Resp BP Pulse Ox 98.2 F 79 16 138/73 98 07/26/16 07:00 07/26/16 07:00 07/26/16 07:00 07/26/16 07:00 07/26/16 07:00 General appearance: Present: A&O X 3, pleasant, obese, answers questions appropriately (sluggish responses to questions. she is s/p EGD/colonoscopy. ) - Head Head exam: Present: atraumatic, normocephalic - Eye Eye exam: Present: PERRL Pupils: Present: PERRL Additional comments: conjunctival pallor present. - Neck Neck exam general surgery: Present: supple, trachea midline - Respiratory Additional comments: mild right upper lobe wheezing present - Cardiovascular Cardiovascular exam: Present: RRR, +S1, +S2 - GI/Abdominal GI/Abdominal exam: Present: soft, no peritoneal signs. Absent: distended, tenderness - Extremities Exam Extremities exam: Absent: cyanotic, pedal edema <Clayton Devries - Last Filed: 07/26/16 13:43> - Discharge Diagnosis (1) Non-ST elevation myocardial infarction (NSTEMI), type 2 Priority: Primary Status: Acute Comments: Type 2. (2) Hypokalemia Status: Acute (3) Anemia Status: Chronic Qualifiers: Anemia type: iron deficiency Iron deficiency anemia type: other iron deficiency Qualified Code(s): D50.8 - Other iron deficiency anemias (4) Diabetes mellitus Status: Acute Qualifiers: Diabetes mellitus type: type 2 Diabetes mellitus complication status: without complication Diabetes mellitus care home insulin use: without care home use Qualified Code(s): E11.9 - Type 2 diabetes mellitus without complications (5) Hypertension Status: Acute Qualifiers: Hypertension type: essential hypertension Qualified Code(s): I10 - Essential (primary) hypertension (6) Diarrhea Status: Chronic Qualifiers: Diarrhea type: unspecified type Qualified Code(s): R19.7 - Diarrhea, unspecified (7) Low folate Priority: Secondary Status: Chronic (8) Hypomagnesemia Priority: Secondary Status: Resolved (9) Hypothyroid Status: Chronic Qualifiers: Hypothyroidism type: acquired Qualified Code(s): E03.9 - Hypothyroidism, unspecified Date of admission: 07/21/16 17:24 Primary care physician: Francine Wood Consults: 07/21/16 17:43 Consult to Cardiology [CONS] Routine Comment: Consulting Provider: Cardiology Michelle Reason for Consult: NSTEMI Time Notified: 17:30 Call Completed: Yes 07/21/16 17:44 Consult to Cardiac Rehabilitation-Phase1 [CONS] Routine Comment: Reason for Consult: AMI Call Completed: Yes Consult to Nurse Navigator [CONS] Routine Comment: 07/21/16 20:08 Consult to Nutrition [CONS] Routine Comment: Consulting Provider: NUTRITION Reason for Dietary Consult: Diet Education 07/23/16 16:55 Consult to Gastroenterology [CONS] Routine Consulting Provider: Gastroenterology Voltaire Reason for Consult: persistent diarrhea, Fe def anemia, weight loss Call Completed: Yes 07/25/16 07:19 Consult to Oncology Hematology [CONS] Routine Consulting Provider: Cheryle Nunez Reason for Consult: microcytic anemia, low folate Call Completed: Yes Hospital course: Ms. Ludwig is a 61 year old female - Time Spent with Patient Total time spent providing and/or coordinating discharge services: 39min - Constitutional Vitals: Temp Pulse Resp BP Pulse Ox 98.2 F 79 16 138/73 98 07/26/16 07:00 07/26/16 07:00 07/26/16 07:00 07/26/16 07:00 07/26/16 07:00 - Attending Attestation I examined this patient and my medical decision-making was reviewed with the Resident Physician on 07/26/16. I agree with the documented findings, disposition and treatment plan as described except to the extent set forth below. Ms. Ludwig is feeling OK today. Her hgb is 7.3. No new signs of bleeding. Blood tests still pending. Exam Alert. Comfortable at rest in bed. Heart reg No wheeze Plan Pt ambulated in [place] and was somewhat dyspneic. She will be given one unit PRBCs today. Plan d/c later today with follow up in hematology next week.
[2016-07-26] MEDS ORDERED: Acetaminophen 325 MG TABLET PO ONE (12:52)
[2016-07-26] MEDS ORDERED: 0.9 % Sodium Chloride 250 ML IVC PRN (12:52)
[2016-07-26] MEDS ORDERED: 0.9 % Sodium Chloride 250 ML ONE (14:52)
[2016-07-26] MEDS ORDERED: Magnesium Oxide 400 MG TABLET PO ONE (15:29)
[2016-07-26 18:19] LABS: ABG Base Excess -2.6 mEq/L (-2.0 to 3.0); ABG HCO3 21.2 mEQ/L (21-27); ABG Oxygen Saturation 98 % (95-98); ABG PCO2 32 mmHg (35-45); ABG PH 7.43 pH Units (7.32-7.45); ABG PO2 105 mmHg (85-104); ABG TCO2 22.2 mEq/L (20-26)
[2016-07-26 18:20] LABS: Blood Gas FiO2 100 %
[2016-07-26 18:41] LABS: Hemoglobin 8.7 g/dL (11.5-15.4); Immature Granulocytes % 1.5 % (0-4); Nucleated Red Blood Cells 0.7 /100 WBC (0)
[2016-07-26 18:43] LABS: Basophils # 0.1 K/mcL (0.0-0.2); Basophils % 0.6 %; Eosinophils # 0.1 K/mcL (0.0-0.6); Eosinophils % 0.7 %; Hematocrit 32.5 % (35.3-44.9); Immature Platelets 4.1 % (1.1-6.1); Lymphocytes # 1.6 K/mcL (0.6-4.6); Lymphocytes % 15.1 %; Mean Corpuscular HGB Conc 26.8 g/dL (31.6-35.5); Mean Corpuscular Hemoglobin 18.5 pg (28.0-33.3); Mean Platelet Volume 10.4 fL (9.4-12.4); Monocytes # 0.5 K/mcL (0.0-1.3); Monocytes % 4.5 %; Neutrophils # 8.2 K/mcL (1.6-8.9); Platelet Count 344 K/mcL (140-400); Red Blood Count 4.71 M/mcL (3.82-4.97); Red Cell Distribution Width 19.5 % (11.5-14.5); Segmented Neutrophils % 77.6 %
[2016-07-26 18:50] LABS: BUN/Creatinine Ratio 14 (6-26); Blood Urea Nitrogen 11 mg/dL (7-20); Calcium 9.4 mg/dL (8.6-10.8); Carbon Dioxide 20 mEq/L (19-29); Chloride 109 mEq/L (98-109); Glucose 197 mg/dL (70-99); Magnesium 1.6 mg/dL (1.6-2.6); Osmolality,Calculated 295 (280-300); Potassium 3.6 mEq/L (3.5-4.5); Sodium 140 mEq/L (136-145); eGFR For African Americans > 60 (> 60); eGFR For Non-African Americans > 60 (> 60)
[2016-07-26 19:10] LABS: Anisocytosis 2+ (Not Present); Hypochromasia Present (Not Present); Platelet Estimate Normal (Normal)
[2016-07-26 19:11] LABS: Ovalocytes 1+ (Not Present)
--- NOTE | 2016-07-26 19:15 | Procedure Note ---
<Foreign Noland - Last Filed: 07/26/16 19:11> Date of procedure: 07/26/16 Pre-op diagnosis: Syncope, poor IV access Post-op diagnosis: same Procedure: Verbal consent was obtained from the patient, written consent was obtained from patient's mother. The right internal jugular vein was surveyed using ultrasound and deemed to be a suitable target. The patient was cleaned and draped in the usual sterile fashion. Under ultrasound guidance introducer needle was passed into the right internal jugular vein. Dark red, nonpulsatile blood flow was returned. The guidewire was passed through the needle into the vein. The needle was removed, and a demetri in the skin was made. The dilator was passed over the guidewire and the soft tissues were dilated. A 16 cm triple -lumen catheter was then passed over the guidewire and advanced into the vein without difficulty. The guidewires were intact. All 3 ports were tested and kai blood and flushed easily. The catheter sutured in place. Patient tolerated the procedure well, there are no immediate complications. Chest x- ray confirmed placement is pending. Anesthesia: local Surgeon: Foreign Noland Estimated blood loss (cc): 10 IV fluids (cc): 15 Pathology: none sent Condition: stable Disposition: floor <Clayton Devries - Last Filed: 07/26/16 19:24> - Attending Attestation I examined this patient and my medical decision-making was reviewed with the Resident Physician on 07/26/16. I agree with the documented findings, disposition and treatment plan as described except to the extent set forth below. I was present for the entire procedure.
--- NOTE | 2016-07-26 19:21 | Event Note ---
<Foreign Noland - Last Filed: 07/26/16 19:16> Date of Encounter: 07/26/16 Time of Encounter: 19:16 At approximately 6 PM the patient was preparing for discharge and got up to go to the bathroom, on returning to bed the patient sat down, became pale, diaphoretic, and had some minor tremors and apparent near syncopal episode. The patient never fully lost consciousness. The patient was seen and examined by myself and the attending physician, Dr. Devries. When examining the patient she was awake and alert and answering questions appropriately. Her lips and skin were pale, her skin was diaphoretic. Lungs were clear to auscultation bilaterally, heart was tachycardic but regular. Vital sign assessment was stable other than her oxygen saturation which was 80% on room air and came up to 85% on 4 L nasal cannula, the patient was then placed on 15 L nonrebreather and her oxygen saturations improved to 100%. Stat labs were obtained which were relatively unremarkable. Given the patient's tachycardia, hypoxia, near syncopal event there is concern for pulmonary embolism, therefore we will obtain a CTA. After multiple times by nursing to obtain peripheral IV access, this was unsuccessful and the decision was made to place a central line for definitive IV access. Please see the procedure note for complete documentation of this. At this time the patient remained stable and is awake, alert and responding appropriately. She is in no acute distress. Her discharge has been canceled and the patient continued to be observed. <Clayton Devries - Last Filed: 07/26/16 19:25> I examined this patient and my medical decision-making was reviewed with the Resident Physician on 07/26/16. I agree with the documented findings, disposition and treatment plan as described except to the extent set forth below.
[2016-07-26 19:27] LABS: INR 1.1; Prothrombin Time 12.3 Seconds (9.4-12.1)
[2016-07-26 19:30] LABS: Activated Partial Thrombo Time 27.8 Seconds (26.0-36.0)
[2016-07-26] MEDS ORDERED: *HR* Heparin 5,000 UNIT/ML VIAL IVP PRN ×2 (22:19)
[2016-07-26] MEDS ORDERED: *HR* Heparin 5,000 UNIT/ML VIAL IVP ONE (22:19)
--- NOTE | 2016-07-26 22:36 | Event Note ---
<Carey Osuna - Last Filed: 07/26/16 22:24> Date of Encounter: 07/26/16 Time of Encounter: 22:24 Patient had an acute episode of lightheadedness, dizziness and near-syncope this afternoon with associated tachycardia and hypoxia. Due to concern for PE, CTA chest was order. Received call from Dr. Grady Ahn (radiologist) to discuss the findings. Patient found to have "large bilateral pulmonary emboli involving all lobar branches the distal right main pulmonary artery." Patient examined with Dr. Shultz. She currently denies any chest pain or pressure, SOB/ difficulty breathing, lightheadedness/dizziness/changes in vision. Patient is mildly tachycardic at 100-110bpm. Blood pressure is in the 140s/80s. O2 saturation around 90-95% on 10L high flow nasal canula. Lungs diminished on the right. Hemocult negative for gross or occult blood. Will start heparin drip, monitor hemoglobin, and provide supplemental O2 as needed. <Alvin Shultz - Last Filed: 07/27/16 01:08> I examined this patient and my medical decision-making was reviewed with the Resident Physician, Dr. Osuna. I agree with the documented findings, disposition and treatment plan as described except to the extent set forth below. We will obtain lower extremity Doppler venous ultrasound in the morning.
[2016-07-26] MEDS: Heparin 25,000 UNIT/500 ML D5W 25,000 UNIT/500 ML MLS IVC SCH (23:24)
[2016-07-26 23:33] LABS: Hematocrit 30.5 % (35.3-44.9); Hemoglobin 8.5 g/dL (11.5-15.4); Immature Platelets 4.4 % (1.1-6.1); Mean Corpuscular HGB Conc 27.9 g/dL (31.6-35.5); Mean Corpuscular Hemoglobin 18.9 pg (28.0-33.3); Mean Corpuscular Volume 67.9 fL (83.0-100.0); Mean Platelet Volume 9.9 fL (9.4-12.4); Red Blood Count 4.49 M/mcL (3.82-4.97); Red Cell Distribution Width 19.1 % (11.5-14.5)
[2016-07-26 23:46] LABS: INR 1.1; Prothrombin Time 12.4 Seconds (9.4-12.1)
[2016-07-26 23:49] LABS: Activated Partial Thrombo Time 28.7 Seconds (26.0-36.0)
[2016-07-27] MEDS: *HR* Morphine 2 MG/ML SYRINGE IVP PRN (04:07)
[2016-07-27 04:40] LABS: Hematocrit 30.5 % (35.3-44.9); Hemoglobin 8.4 g/dL (11.5-15.4)
[2016-07-27 04:54] LABS: BUN/Creatinine Ratio 13 (6-26); Blood Urea Nitrogen 9 mg/dL (7-20); Calcium 9.2 mg/dL (8.6-10.8); Carbon Dioxide 26 mEq/L (19-29); Chloride 107 mEq/L (98-109); Glucose 145 mg/dL (70-99); Osmolality,Calculated 293 (280-300); Potassium 3.7 mEq/L (3.5-4.5); Sodium 141 mEq/L (136-145); eGFR For African Americans > 60 (> 60); eGFR For Non-African Americans > 60 (> 60)
[2016-07-27] MEDS: Insulin LISPRO 300 UNITS/3 ML VIAL SQ SCH ×4 (08:07→21:39)
[2016-07-27] MEDS: Folic Acid 1 MG TABLET PO SCH (08:58)
[2016-07-27] MEDS: Aspirin 81 MG TAB.CHEW PO SCH (09:02)
[2016-07-27] MEDS: (Ezetimibe [Zetia] 10 MG) PO SCH (09:15)
[2016-07-27 11:21] LABS: Tissue Transglutaminase IgG 6 U/mL (0-5)
[2016-07-27 11:29] LABS: Tissue Transglutaminase IgA 1 U/mL (0-3)
--- NOTE | 2016-07-27 12:15 | ECHO - Doppler Report ---
Limited Echocardiogram Name: Roxana Ludwig Date of Study: 07/27/2016 Date: 1955 Ht: 66.0 in Medical Record#: [id number] Age: 61 Wt: 231.0 lb Gender: Female BSA: 2.13 Order #: [id number] Location: [facility] Room #: [id number] Reading Physician: Foreign Duque MD, [facility] Advanced Practice Professional: Tex Berman RN Ordering Physician: Laurita Reyes DO Primary Physician: Francine Wood MD Indications: Pulmonary embolus Impressions: Normal left ventricular systolic function, LVEF 65%. Mild concentric left ventricular hypertrophy. Moderately dilated right ventricle with low-normal systolic function. TAPSE = 15 mm. Mild-moderately dilated right atrium. Aneurysmal interatrial septum. Valvular function was not assessed on this limited study. Left Ventricular Wall Motion: Rest Echo Findings All wall segments showed normal motion. Findings: Study Quality * Technically adequate exam. ECG Findings * Normal sinus rhythm. Left Ventricle * Normal left ventricular systolic function, LVEF 65%. * Mild concentric left ventricular hypertrophy. Right Ventricle * Moderately dilated right ventricle with low-normal systolic function. TAPSE = 15 mm. Left Atrium * Normal left atrial size. Right Atrium * Mild-moderately dilated right atrium. Interatrial Septum * Aneurysmal interatrial septum. Aorta * Normally sized aortic root. Pericardium * There is no pericardial effusion present. History Hypertension Diabetes Hypercholesteremia Myocardial Infarction 07/22/2016 a Previous Echo was performed. Measurements: BP: 149/ 91 2D Normal Values RVIDd: 4.90 cm IVSd: 1.30 cm 0.6 - 1.0 cm LVIDd: 4.00 cm 3.7 - 5.6 cm LVPWd: 1.30 cm 0.6 - 1.1 cm LVIDs: 2.40 cm 1.5 - 3.6 cm AO: 3.20 cm < 4.0 cm %FS: 40.00 cm >25 % Updated by Foreign Duque MD, [facility] on 07/27/2016 12:09:05 PM electronically signed on 07/27/2016 12:10:22 PM with status of Final Wall Motion Bernard: 1=Normal, 2=Hypokinesis, 3=Akinesis, 4=Dyskinesis, 5=Aneurysmal, 6=Hyperkinetic, X=Not Visualized (Blank)=Missing
--- NOTE | 2016-07-27 16:09 | Event Note ---
Date of Encounter: 07/27/16 Time of Encounter: 15:05 I spoke to hospitalist by phone regarding patient. Hematology originally saw patient for iron deficiency anemia. She will see Dr Libia Nunez on 07/31/16 for follow up and IV iron infusions. Patient with new bilateral PE after near syncope at discharge. Discharge cancelled, and placed on heparin drip. Hospitalist team needs guidance for anticoagulation. After speaking to Dr Boone, xarelto should be initiated once heparin drip weened down. Rx is Xarelto Starter Pack, as directed. The patient will take 15mg PO BID for 21 days, then 20mg daily days 22-30. New Rx for day 31 will be written by us on her appointment at [facility] on 07/31/16. This can be expensive, have Rx filled at [facility] pharmacy. They have a free copay card for the Xarelto starter pack in the pharmacy for these first 30 days. (If none there, [facility] pharmacy has them, or social workers). Thank you for allowing us to participate in your patient's care.
--- NOTE | 2016-07-27 18:01 | Internal Med Progress Note ---
<Laurita Reyes - Last Filed: 07/27/16 18:17> Date of Encounter: 07/27/16 Time of Encounter: 08:30 - Assessment and plan (1) Pulmonary embolism Current Visit: Yes Status: Acute Assessment and plan: last night before discharge, patient had episode of becoming pale, diaphoretic, and had minor tremors with apparent near syncopal episode. oxygen sat was 80% on room air and patient was tachycardic. stat CTA ordered and showed large bilateral pulmonary emboli involving all lobar branches of the distal right main pulmonary artery. no evidence of right heart strain. head CT was negative. Patient placed on heparin drip. venous doppler showed acute thrombus in left popliteal and lesser saphenous vein. right side negative for SVT and SVT. Echo showed normal LV systolic function, LVEF 65%, mild concentric LVH, moderately dilated RV with low normal systolic function. troponins elevated- likely due to PE, will continue to trend. Hematology was contacted for recommendations regarding anticoagulation in setting of anemia. They recommended Xarelto starter pack with following dosage: 15mg BID for 21 days, 20mg a day after day with follow up to hematology. Qualifiers: Pulmonary embolism type: other Chronicity: acute Acute cor pulmonale presence: without acute cor pulmonale Qualified Code(s): I26.99 - Other pulmonary embolism without acute cor pulmonale (2) Anemia Current Visit: Yes Status: Chronic Assessment and plan: Hg today 7.7. Patient had EGD/colonoscopy. EGD showed normal esophagus with inflammation in stomach-biopsied and results pending. Colonoscopy revealed diverticula and polyp. Stool occult blood was negative. TSH normal. B12 normal. Folate low- supplementing. Iron, %saturation, and transferrin low- iron supplementing. Anemia appears microcytic/hypochromic. Celiac disease markers, MMA, Haptoglobin levels pending- likely won't have results until the end of week. Consult to oncology made- they recommend seeing her outpatient in clinic next week, at that point they will schedule for IV iron. Will re check H&H tomorrow. If stable, plan to discharge home without outpatient follow up with GI and heme/onc. 07/27/16 stool fats normal. Tissue transglutamin IgG elevated at 6- patient may benefit from gluten free diet. Tissue transglutamin IgA level normal. MMA level pending. Hg stable at 8.4. will continue to monitor. Qualifiers: Anemia type: iron deficiency Iron deficiency anemia type: other iron deficiency Qualified Code(s): D50.8 - Other iron deficiency anemias (3) Chest pain Current Visit: Yes Status: Acute Assessment and plan: Patient had originally come to the hospital with CC of chest pain. Initial troponins high- Patient was diagnosed with PE last night-likely cause of chest pain. Continue heparin drip. Qualifiers: Chest pain type: precordial pain Qualified Code(s): R07.2 - Precordial pain (4) Diabetes mellitus Current Visit: Yes Status: Acute Assessment and plan: Low dose sliding scale insulin with ACHS accuchecks. 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 Qualifiers: Hypertension type: essential hypertension Qualified Code(s): I10 - Essential (primary) hypertension (6) Hypokalemia Current Visit: Yes Status: Resolved Assessment and plan: resolved. Continue with 20mEq replacement daily. (7) Hypothyroid Current Visit: Yes Status: Chronic Assessment and plan: continue home med levothyroxine. Qualifiers: Hypothyroidism type: acquired Qualified Code(s): E03.9 - Hypothyroidism, unspecified (8) DVT prophylaxis Current Visit: Yes Status: Acute Assessment and plan: Continue with Heparin drip. Plan to start xarelto tomorrow morning. - Subjective Interval history: 61 year old female evaluated at bedside. Patient states that she feels "pretty good" compared to yesterday. She denies dizziness, nausea, vomiting, diarrhea, fever, chills. She denies chest pain or shortness of breath. - Constitutional Vitals: Temp Pulse Resp BP Pulse Ox 98.2 F 83 16 131/76 98 07/27/16 16:54 07/27/16 16:54 07/27/16 16:54 07/27/16 16:54 07/27/16 16:54 General appearance: Present: A&O X 3, pleasant, obese, answers questions appropriately (sluggish responses to questions. she is s/p EGD/colonoscopy. ) - Head Head exam: Present: atraumatic, normocephalic - Eye Eye exam: Present: PERRL Pupils: Present: PERRL - Neck Neck exam general surgery: Present: supple, trachea midline - Respiratory Respiratory exam: Present: CTAB - Cardiovascular Cardiovascular exam: Present: RRR - GI/Abdominal GI/Abdominal exam: Present: soft. Absent: tenderness - Extremities Exam Extremities exam: Present: radial pulses palpable and symetrical. Absent: cyanotic, pedal edema - Neurological Exam Neurological exam: Present: alert, CN II-XII intact, oriented X3, no focal deficits - Psychiatric Psychiatric exam: Present: normal mood Internal Medicine: Result - Labs CBC & Chem 7: 07/27/16 04:20 07/27/16 04:20 Labs: Short CBC 07/26/16 07/26/16 07/27/16 Range/Units 18:13 23:20 04:20 WBC 10.6 12.0 H (4.3-11.1) K/mcL Hgb 8.7 L 8.5 L 8.4 L (11.5-15.4) g/dL Hct 32.5 L 30.5 L 30.5 L (35.3-44.9) % Plt Count 344 346 (140-400) K/mcL Neutrophils # 8.2 (1.6-8.9) K/mcL BMP 07/26/16 07/27/16 18:02 04:20 Sodium 140 141 Potassium 3.6 3.7 Chloride 109 107 Carbon Dioxide 20 26 BUN 11 9 Creatinine 0.76 0.71 Glucose 197 H 145 H Calcium 9.4 9.2 Cardiac Enzymes 07/26/16 07/27/16 Range/Units 18:02 04:20 Troponin I 0.10 H* 0.32 H* (0-0.03) ng/mL - ABG Interpretation ABG results: ABG ABG pH 7.43 pH Units (7.32-7.45) 07/26/16 17:55 ABG pCO2 32 mmHg (35-45) L 07/26/16 17:55 ABG pO2 105 mmHg (85-104) H 07/26/16 17:55 ABG O2 Saturation 98 % (95-98) 07/26/16 17:55 PT/INR, D-dimer PT 12.4 Seconds (9.4-12.1) H 07/26/16 23:20 - Impressions Impressions Chest CTA 07/26/16 17:47 IMPRESSION: 1. Large bilateral pulmonary emboli involving all lobar branches the distal right main pulmonary artery. No evidence of right heart strain. 2. Dilated main pulmonary artery as can be seen in the setting of pulmonary arterial hypertension. Findings were discussed with Dr. Rose Osuna of the [place] emergency department at 9:28 pm on 07/26/2016. D/ / Grady Ahn MD / Grady Ahn MD Interpreting Provider: Grady Ahn MD Head CT 07/26/16 18:48 IMPRESSION: Negative CT head for age. D/ / Melanie Cesar MD / Melanie Cesar MD Interpreting Provider: Melanie Cesar MD Chest X-Ray 07/26/16 19:01 IMPRESSION: Status post placement of right internal jugular central venous catheter, without gross pneumothorax. D/ / Doug David MD / Doug David MD Interpreting Provider: Doug David MD Consult Discharge Plan - Plan Instructions: Folic Acid (By mouth), Hypothyroidism (DC), Diabetes Mellitus Type 2 in Adults (DC), Chronic Hypertension (DC), Dyspnea (GEN), Anemia (GEN) Additional Instructions: Follow-up appointments: If there is not an appointment listed below, please call your physician and schedule a follow-up appointment. If you have congestive heart failure and your symptoms return, make an appointment with your physician. Symptoms: If your condition changes or you experience any of the following symptoms, notify your physician immediately: Unusual or worsening pain, fever, persistent nausea and vomiting, bleeding, increase in swelling (especially in your legs), sudden weight gain, extreme dizziness, chest pain, increased drainage or redness from a wound or incision. Go to the emergency department if you experience a problem with breathing. Weights: If you have a history of swelling or shortness of breath, weigh yourself daily and notify your physician if you have a weight gain of two or more pounds in one day or 5 or more pounds in a week. If you experience any of the warning signs for stroke: Sudden numbness or weakness of the face, arm or leg; especially on one side of the body, sudden confusion, trouble speaking or understanding, sudden trouble seeing in one or both eyes, sudden trouble walking, dizziness, loss of balance or coordination, sudden sever headache with no cause; Call 911 or go to the emergency room. Stroke is a medical emergency. Some risk factors for stroke: Age, cigarette smoking, diabetes, excessive alcohol consumption, family history , high blood pressure, overweight, physical inactivity, prior stroke, heart attack, diagnosis of carotid artery stenosis or other artery disease. If you smoke, STOP: Smoking or tobacco use significantly increases your risk of heart and lung disease. Your chance of disease greatly increases if you continue to smoke. For more information, call the [place] tobacco quit line for smoking cessation 2-433- QUIT-NOW ( ) Referrals: Francine Wood MD [Primary Care Provider] - 08/01/16 1:45 pm Cheryle Nunez MD [Partnered Physician] - 07/31/16 10:00 am Elmer Coronado MD [Partnered Physician] - Prescriptions: Folic Acid 1 mg PO DAILY #30 tablet <Clayton Devries - Last Filed: 07/27/16 19:10> - Assessment and plan (1) Pulmonary embolism Current Visit: Yes Status: Acute Qualifiers: Pulmonary embolism type: other Chronicity: acute Acute cor pulmonale presence: without acute cor pulmonale Qualified Code(s): I26.99 - Other pulmonary embolism without acute cor pulmonale (2) DVT, popliteal, acute Current Visit: Yes Status: Acute Qualifiers: Laterality: left Qualified Code(s): I82.432 - Acute embolism and thrombosis of left popliteal vein (3) Non-ST elevation myocardial infarction (NSTEMI), type 2 Current Visit: Yes Status: Resolved (4) Hypokalemia Current Visit: Yes Status: Resolved (5) Anemia Current Visit: Yes Status: Chronic Qualifiers: Anemia type: iron deficiency Iron deficiency anemia type: other iron deficiency Qualified Code(s): D50.8 - Other iron deficiency anemias (6) Diabetes mellitus Current Visit: Yes Status: Acute Qualifiers: Diabetes mellitus type: type 2 Diabetes mellitus complication status: without complication 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 teacher insulin use: without long-term use Qualified Code(s): E11.9 - Type 2 diabetes mellitus without complications (7) Hypertension Current Visit: Yes Status: Acute Qualifiers: Hypertension type: essential hypertension Qualified Code(s): I10 - Essential (primary) hypertension (8) Diarrhea Current Visit: Yes Status: Chronic Qualifiers: Diarrhea type: unspecified type Qualified Code(s): R19.7 - Diarrhea, unspecified (9) Low folate Current Visit: Yes Status: Chronic (10) Hypomagnesemia Current Visit: Yes Status: Resolved (11) Hypothyroid Current Visit: Yes Status: Chronic Qualifiers: Hypothyroidism type: acquired Qualified Code(s): E03.9 - Hypothyroidism, unspecified - Constitutional Vitals: Temp Pulse Resp BP Pulse Ox 98.2 F 83 16 131/76 98 07/27/16 16:54 07/27/16 16:54 07/27/16 16:54 07/27/16 16:54 07/27/16 16:54 Internal Medicine: Result - Labs CBC & Chem 7: 07/27/16 04:20 07/27/16 04:20 Labs: Short CBC 07/26/16 07/26/16 07/27/16 Range/Units 18:13 23:20 04:20 WBC 10.6 12.0 H (4.3-11.1) K/mcL Hgb 8.7 L 8.5 L 8.4 L (11.5-15.4) g/dL Hct 32.5 L 30.5 L 30.5 L (35.3-44.9) % Plt Count 344 346 (140-400) K/mcL Neutrophils # 8.2 (1.6-8.9) K/mcL BMP 07/27/16 04:20 Sodium 141 Potassium 3.7 Chloride 107 Carbon Dioxide 26 BUN 9 Creatinine 0.71 Glucose 145 H Calcium 9.2 Cardiac Enzymes 07/27/16 Range/Units 04:20 Troponin I 0.32 H* (0-0.03) ng/mL - ABG Interpretation ABG results: ABG ABG pH 7.43 pH Units (7.32-7.45) 07/26/16 17:55 ABG pCO2 32 mmHg (35-45) L 07/26/16 17:55 ABG pO2 105 mmHg (85-104) H 07/26/16 17:55 ABG O2 Saturation 98 % (95-98) 07/26/16 17:55 PT/INR, D-dimer PT 12.4 Seconds (9.4-12.1) H 07/26/16 23:20 - Impressions Impressions Chest CTA 07/26/16 17:47 IMPRESSION: 1. Large bilateral pulmonary emboli involving all lobar branches the distal right main pulmonary artery. No evidence of right heart strain. 2. Dilated main pulmonary artery as can be seen in the setting of pulmonary arterial hypertension. Findings were discussed with Dr. Rose Osuna of the [place] emergency department at 9:28 pm on 07/26/2016. D/ / Grady Ahn MD / Grady Ahn MD Interpreting Provider: Grady Ahn MD Head CT 07/26/16 18:48 IMPRESSION: Negative CT head for age. D/ / Melanie Cesar MD / Melanie Cesar MD Interpreting Provider: Melanie Cesar MD Chest X-Ray 07/26/16 19:01 IMPRESSION: Status post placement of right internal jugular central venous catheter, without gross pneumothorax. D/ / Doug David MD / Doug David MD Interpreting Provider: Doug David MD - Attending Attestation I examined this patient and my medical decision-making was reviewed with the Resident Physician on 07/27/16. I agree with the documented findings, disposition and treatment plan as described except to the extent set forth below. Ms. Ludwig is currently admitted for bilateral PE. She is high risk due to potential complications of bleeding and issues with PE. Ms. Ludwig was found to have bilateral PEs last night. Venous duplex neg for L DVT in popliteal. Feeling somewhat better today. Exam Alert. Comfortable Heart reg - not as tachy Lungs no wheeze I/P 1. Acute bilateral PE 2. L popliteal DVT Further diagnoses and plan as above.
[2016-07-27] MEDS: Heparin 25,000 UNIT/500 ML D5W 25,000 UNIT/500 ML MLS IVC SCH ×2 (18:05→19:29)
--- NOTE | 2016-07-27 18:49 | Venous Imaging Report ---
LE Venous Duplex Patient Name:Roxana Ludwig Order Number:[id number] Procedure Date:07/27/2016 Date:1955ge:61 yrs Gender:Female Location:[facility] Room #: 2NE27 Forge Tender:Tex Berman RN Referring MD:Laurita Reyes DO register of wills:Francine Wood MD Reading MD:Seun Simpson MD Primary Indications:Pain in limb Secondary Indications: Risk Factors Yes/No Hypertension Yes Diabetes Yes Hypercholesterolemia Yes Smoker Previous No Previous Vascular Surgery No Hx of DVT No Trauma to Veins No Recent Surgery No Hx of Superficial Phlebitis No Sigrid Filter No PE of Unknown Origin Yes Impressions: Normal right lower extremity deep and superficial venous exam. Acute deep venous thormbosis is present in the left popliteal vein. Acute superficial venou s thrombosis is present in the left lesser saphenous vein. Recommendations: Test completed on 07/27/2016 at 11:00:00 am. Findings Venous Duplex Results: Right: Venous imaging of the lower extremity reveals full patency and normal vessel compressibility of the right distal iliac, right common femoral, right superficial femoral, right popliteal, right posterior tibial, right peroneal, right great saphenous and right lesser saphenous. Doppler signals in the evaluated veins were normal. Left: Venous imaging of the lower extremity reveals full patency and normal vessel compressibility of the left distal iliac, left common femoral, left superficial femoral, left posterior tibial, left peroneal and left great saphenous. Doppler signals in the evaluated veins were normal. There is an acute thrombus seen in the left popliteal. It demonstrates an incompressible vein. Flow was absent and it did not augment. There is an acute thrombus seen in the left lesser saphenous. It demonstrates an incompressible vein. Flow was absent and it did not augment. Prior Study: No prior study available for comparison. Lower Extremity Venous Duplex Side Vein Compress Spontaneous Flow Augment Diameter (cm) Depth (cm) Right Distal Iliac Normal Yes Phasic Yes Right Common Femoral Normal Yes Phasic Yes Right Superficial Femoral Normal Yes Phasic Yes Right Popliteal Normal Yes Phasic Yes Right Posterior Tibial Normal Yes Phasic Yes Right Peroneal Normal Yes Phasic Yes Right Great Saphenous Normal Yes Phasic Yes Right Lesser Saphenous Normal Yes Phasic Yes Left Distal Iliac Normal Yes Phasic Yes Left Common Femoral Normal Yes Phasic Yes Left Superficial Femoral Normal Yes Phasic Yes Left Popliteal None no Absent no Left Posterior Tibial Normal Yes Phasic Yes Left Peroneal Normal Yes Phasic Yes Left Great Saphenous Normal Yes Phasic Yes Left Lesser Saphenous None no Absent no Updated by Seun Simpson MD on 07/27/2016 6:43:12 PM electronically signed on 07/27/2016 6:43:22 PM with status of Final
--- NOTE | 2016-07-27 20:03 | Electrocardiograph Report ---
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
[2016-07-28 07:39] LABS: BUN/Creatinine Ratio 21 (6-26); Blood Urea Nitrogen 15 mg/dL (7-20); Calcium 9.1 mg/dL (8.6-10.8); Carbon Dioxide 24 mEq/L (19-29); Chloride 105 mEq/L (98-109); Glucose 144 mg/dL (70-99); Osmolality,Calculated 291 (280-300); Potassium 3.7 mEq/L (3.5-4.5); Sodium 139 mEq/L (136-145); eGFR For African Americans > 60 (> 60); eGFR For Non-African Americans > 60 (> 60)
[2016-07-28 07:42] LABS: Lymphocytes % 18.1 %
[2016-07-28 07:44] LABS: Basophils # 0.1 K/mcL (0.0-0.2); Basophils % 0.4 %; Eosinophils # 0.2 K/mcL (0.0-0.6); Eosinophils % 1.3 %; Hematocrit 31.3 % (35.3-44.9); Hemoglobin 8.5 g/dL (11.5-15.4); Immature Granulocytes % 1.6 % (0-4); Lymphocytes # 2.2 K/mcL (0.6-4.6); Mean Corpuscular HGB Conc 27.2 g/dL (31.6-35.5); Mean Corpuscular Volume 69.9 fL (83.0-100.0); Mean Platelet Volume 10.4 fL (9.4-12.4); Monocytes # 0.8 K/mcL (0.0-1.3); Monocytes % 6.3 %; Neutrophils # 8.7 K/mcL (1.6-8.9); Nucleated Red Blood Cells 0.4 /100 WBC (0); Platelet Count 368 K/mcL (140-400); Red Blood Count 4.48 M/mcL (3.82-4.97); Red Cell Distribution Width 20.9 % (11.5-14.5); Segmented Neutrophils % 72.3 %
[2016-07-28] MEDS: Aspirin 81 MG TAB.CHEW PO SCH (08:31)
[2016-07-28] MEDS: Folic Acid 1 MG TABLET PO SCH (08:31)
[2016-07-28] MEDS: (Ezetimibe [Zetia] 10 MG) PO SCH (08:32)
[2016-07-28] MEDS: Insulin LISPRO 300 UNITS/3 ML VIAL SQ SCH ×4 (08:35→22:52)
[2016-07-28 08:54] LABS: MMA (VIT B12 STATUS) 0.12 umol/L (0.00-0.40)
[2016-07-28 09:28] LABS: Hypochromasia Present (Not Present); Microcytosis Present (Not Present); Ovalocytes 1+ (Not Present); Platelet Estimate Normal (Normal); Polychromasia 1+ (Not Present)
--- NOTE | 2016-07-28 09:41 | Internal Med Progress Note ---
<Laurita Reyes - Last Filed: 07/28/16 13:12> Date of Encounter: 07/28/16 Time of Encounter: 08:45 - Assessment and plan (1) Pulmonary embolism Current Visit: Yes Status: Acute Assessment and plan: last night before discharge, patient had episode of becoming pale, diaphoretic, and had minor tremors with apparent near syncopal episode. oxygen sat was 80% on room air and patient was tachycardic. stat CTA ordered and showed large bilateral pulmonary emboli involving all lobar branches of the distal right main pulmonary artery. no evidence of right heart strain. head CT was negative. Patient placed on heparin drip. venous doppler showed acute thrombus in left popliteal and lesser saphenous vein. right side negative for SVT and SVT. Echo showed normal LV systolic function, LVEF 65%, mild concentric LVH, moderately dilated RV with low normal systolic function. troponins elevated- likely due to PE, will continue to trend. Hematology was contacted for recommendations regarding anticoagulation in setting of anemia. They recommended Xarelto starter pack with following dosage: 15mg BID for 21 days, 20mg a day after day with follow up to hematology. 07/28/15 Patient continues to do well, chest pain free. This morning, she was switched from heparin drip to Xarelto, as recommended by oncology. patient counseled on importance of exercise and increased activity to prevent more blood clots from forming. patient encouraged to get up and walk around today. Have instructed nurse to wean her off the oxygen. Plan for discharge tomorrow with outpatient follow up with heme/onc for half-way management. Qualifiers: Pulmonary embolism type: other Chronicity: acute Acute cor pulmonale presence: without acute cor pulmonale Qualified Code(s): I26.99 - Other pulmonary embolism without acute cor pulmonale (2) Anemia Current Visit: Yes Status: Chronic Assessment and plan: Hg today 7.7. Patient had EGD/colonoscopy. EGD showed normal esophagus with inflammation in stomach-biopsied and results pending. Colonoscopy revealed diverticula and polyp. Stool occult blood was negative. TSH normal. B12 normal. Folate low- supplementing. Iron, %saturation, and transferrin low- iron supplementing. Anemia appears microcytic/hypochromic. Celiac disease markers, MMA, Haptoglobin levels pending- likely won't have results until the end of week. Consult to oncology made- they recommend seeing her outpatient in clinic next week, at that point they will schedule for IV iron. Will re check H&H tomorrow. If stable, plan to discharge home without outpatient follow up with GI and heme/onc. 07/27/16 stool fats normal. Tissue transglutamin IgG elevated at 6- patient may benefit from gluten free diet. Tissue transglutamin IgA level normal. MMA level pending. Hg stable at 8.4. will continue to monitor. 07/28/16 Patient's Hg is 8.5 and stable. Continue to monitor. Patient has appointment with oncology next week, at that point she will get IV iron. Patient and parents counseled on importance of gluten free diet, and they were informed of her lab results for celiac disease markers. Qualifiers: Anemia type: iron deficiency Iron deficiency anemia type: other iron deficiency Qualified Code(s): D50.8 - Other iron deficiency anemias (3) Chest pain Current Visit: Yes Status: Resolved Assessment and plan: Patient had originally come to the hospital with CC of chest pain. Initial troponins high- Patient was diagnosed with PE last night-likely cause of chest pain. Continue with anticoagulation. Qualifiers: Chest pain type: precordial pain Qualified Code(s): R07.2 - Precordial pain (4) Diabetes mellitus Current Visit: Yes Status: Acute Assessment and plan: Low dose sliding scale insulin with ACHS accuchecks. Diabetic and gluten free diet with ensure. Qualifiers: Diabetes mellitus type: type 2 Diabetes mellitus complication status: without complication Diabetes mellitus half-way insulin use: without center administrator use Qualified Code(s): E11.9 - Type 2 diabetes mellitus without complications (5) Hypertension Current Visit: Yes Status: Acute Assessment and plan: continue metoprolol, Losartan. Qualifiers: Hypertension type: essential hypertension Qualified Code(s): I10 - Essential (primary) hypertension (6) Hypokalemia Current Visit: Yes Status: Resolved Assessment and plan: resolved. Continue with 20mEq replacement daily. (7) Hypothyroid Current Visit: Yes Status: Chronic Assessment and plan: continue home med levothyroxine. Qualifiers: Hypothyroidism type: acquired Qualified Code(s): E03.9 - Hypothyroidism, unspecified (8) DVT prophylaxis Current Visit: Yes Status: Acute Assessment and plan: Heparin drip stopped. Patient started on Xarelto starter pack as recommended by heme/onc. - Subjective Interval history: 61 year old female evaluated at bedside. Today patient reports that she has a mild headache. She denies shortnes sof breath, chest pain, nausea, vomiting, fever, chills. She denies dizziness. Patient was educated on a gluten free diet. Patient told on importance in ambulation and exercise after discharge. - Constitutional Vitals: Temp Pulse Resp BP Pulse Ox 98.0 F 87 20 119/72 94 L 07/28/16 08:37 07/28/16 08:37 07/28/16 08:37 07/28/16 08:37 07/28/16 08:37 General appearance: Present: A&O X 3, pleasant, obese, answers questions appropriately (sluggish responses to questions. she is s/p EGD/colonoscopy. ) - Head Head exam: Present: atraumatic, normocephalic - Eye Eye exam: Absent: scleral icterus Additional comments: conjunctival pallor present. - ENT ENT exam: Present: mucous membranes moist - Neck Neck exam general surgery: Present: supple, trachea midline - Respiratory Respiratory exam: Present: CTAB - Cardiovascular Cardiovascular exam: Present: RRR - GI/Abdominal GI/Abdominal exam: Present: distended, normal bowel sounds, soft. Absent: tenderness - Extremities Exam Extremities exam: Absent: cyanotic, pedal edema - Neurological Exam Neurological exam: Present: alert, oriented X3, no focal deficits - Psychiatric Psychiatric exam: Present: normal mood Internal Medicine: Result - Labs CBC & Chem 7: 07/28/16 06:45 07/28/16 06:45 Labs: Short CBC 07/28/16 Range/Units 06:45 WBC 12.0 H (4.3-11.1) K/mcL Hgb 8.5 L (11.5-15.4) g/dL Hct 31.3 L (35.3-44.9) % Plt Count 368 (140-400) K/mcL Neutrophils # 8.7 (1.6-8.9) K/mcL BMP 07/28/16 06:45 Sodium 139 Potassium 3.7 Chloride 105 Carbon Dioxide 24 BUN 15 Creatinine 0.72 Glucose 144 H Calcium 9.1 Cardiac Enzymes 07/27/16 07/28/16 Range/Units 19:55 01:30 Troponin I 0.43 H* 0.46 H* (0-0.03) ng/mL - ABG Interpretation ABG results: ABG ABG pH 7.43 pH Units (7.32-7.45) 07/26/16 17:55 ABG pCO2 32 mmHg (35-45) L 07/26/16 17:55 ABG pO2 105 mmHg (85-104) H 07/26/16 17:55 ABG O2 Saturation 98 % (95-98) 07/26/16 17:55 PT/INR, D-dimer PT 12.4 Seconds (9.4-12.1) H 07/26/16 23:20 Consult Discharge Plan - Plan Instructions: Folic Acid (By mouth), Hypothyroidism (DC), Diabetes Mellitus Type 2 in Adults (DC), Chronic Hypertension (DC), Dyspnea (GEN), Anemia (GEN) Additional Instructions: Follow-up appointments: If there is not an appointment listed below, please call your physician and schedule a follow-up appointment. If you have congestive heart failure and your symptoms return, make an appointment with your physician. Symptoms: If your condition changes or you experience any of the following symptoms, notify your physician immediately: Unusual or worsening pain, fever, persistent nausea and vomiting, bleeding, increase in swelling (especially in your legs), sudden weight gain, extreme dizziness, chest pain, increased drainage or redness from a wound or incision. Go to the emergency department if you experience a problem with breathing. Weights: If you have a history of swelling or shortness of breath, weigh yourself daily and notify your physician if you have a weight gain of two or more pounds in one day or 5 or more pounds in a week. If you experience any of the warning signs for stroke: Sudden numbness or weakness of the face, arm or leg; especially on one side of the body, sudden confusion, trouble speaking or understanding, sudden trouble seeing in one or both eyes, sudden trouble walking, dizziness, loss of balance or coordination, sudden sever headache with no cause; Call 911 or go to the emergency room. Stroke is a medical emergency. Some risk factors for stroke: Age, cigarette smoking, diabetes, excessive alcohol consumption, family history , high blood pressure, overweight, physical inactivity, prior stroke, heart attack, diagnosis of carotid artery stenosis or other artery disease. If you smoke, STOP: Smoking or tobacco use significantly increases your risk of heart and lung disease. Your chance of disease greatly increases if you continue to smoke. For more information, call the [place] tobacco quit line for smoking cessation 2-439- QUIT-NOW ( ) Referrals: Francine Wood MD [Primary Care Provider] - 08/01/16 1:45 pm Cheryle Nunez MD [Partnered Physician] - 07/31/16 10:00 am Elmer Coronado MD [Partnered Physician] - Prescriptions: Folic Acid 1 mg PO DAILY #30 tablet Potassium Chloride 10 meq PO DAILY #7 tab.er.[email or web address] <Clayton Devries - Last Filed: 07/28/16 18:01> - Assessment and plan (1) Pulmonary embolism Current Visit: Yes Status: Acute Qualifiers: Pulmonary embolism type: other Chronicity: acute Acute cor pulmonale presence: without acute cor pulmonale Qualified Code(s): I26.99 - Other pulmonary embolism without acute cor pulmonale (2) DVT, popliteal, acute Current Visit: Yes Status: Acute Qualifiers: Laterality: left Qualified Code(s): I82.432 - Acute embolism and thrombosis of left popliteal vein (3) Non-ST elevation myocardial infarction (NSTEMI), type 2 Current Visit: Yes Status: Resolved (4) Hypokalemia Current Visit: Yes Status: Resolved (5) Anemia Current Visit: Yes Status: Chronic Qualifiers: Anemia type: iron deficiency Iron deficiency anemia type: other iron deficiency Qualified Code(s): D50.8 - Other iron deficiency anemias (6) Diabetes mellitus Current Visit: Yes Status: Acute Qualifiers: Diabetes mellitus type: type 2 Diabetes mellitus complication status: without complication Diabetes mellitus half-way insulin use: without half-way use Qualified Code(s): E11.9 - Type 2 diabetes mellitus without complications (7) Hypertension Current Visit: Yes Status: Acute Qualifiers: Hypertension type: essential hypertension Qualified Code(s): I10 - Essential (primary) hypertension (8) Diarrhea Current Visit: Yes Status: Chronic Qualifiers: Diarrhea type: unspecified type Qualified Code(s): R19.7 - Diarrhea, unspecified (9) Low folate Current Visit: Yes Status: Chronic (10) Hypomagnesemia Current Visit: Yes Status: Resolved (11) Hypothyroid Current Visit: Yes Status: Chronic Qualifiers: Hypothyroidism type: acquired Qualified Code(s): E03.9 - Hypothyroidism, unspecified - Constitutional Vitals: Temp Pulse Resp BP Pulse Ox 97.8 F 76 20 114/63 93 L 07/28/16 12:10 07/28/16 12:10 07/28/16 12:10 07/28/16 12:10 07/28/16 12:10 Internal Medicine: Result - Labs CBC & Chem 7: 07/28/16 06:45 07/28/16 06:45 Labs: Short CBC 07/28/16 Range/Units 06:45 WBC 12.0 H (4.3-11.1) K/mcL Hgb 8.5 L (11.5-15.4) g/dL Hct 31.3 L (35.3-44.9) % Plt Count 368 (140-400) K/mcL Neutrophils # 8.7 (1.6-8.9) K/mcL BMP 07/28/16 06:45 Sodium 139 Potassium 3.7 Chloride 105 Carbon Dioxide 24 BUN 15 Creatinine 0.72 Glucose 144 H Calcium 9.1 Cardiac Enzymes 07/27/16 07/28/16 Range/Units 19:55 01:30 Troponin I 0.43 H* 0.46 H* (0-0.03) ng/mL - ABG Interpretation ABG results: ABG ABG pH 7.43 pH Units (7.32-7.45) 07/26/16 17:55 ABG pCO2 32 mmHg (35-45) L 07/26/16 17:55 ABG pO2 105 mmHg (85-104) H 07/26/16 17:55 ABG O2 Saturation 98 % (95-98) 07/26/16 17:55 PT/INR, D-dimer PT 12.4 Seconds (9.4-12.1) H 07/26/16 23:20 - Attending Attestation I examined this patient and my medical decision-making was reviewed with the Resident Physicianon 07/28/16. I agree with the documented findings, disposition and treatment plan as described except to the extent set forth below. Ms. Ludwig is currently admitted for chest pain and dyspnea now found to have bilateral PE. She remains high risk due to potential for worsening respiratory and cardiac status. Ms. Ludwig feels OK today. She has no pain. Switched to PO Xarelto today. Hasn't been up much. No fever or chills. Exam Alert. Comfortable. Heart reg Lungs clear I/P 1. Acute bilateral PE 2. Anemia Increase activity today. Switch to PO. Further diagnoses and plan as above.
[2016-07-28] MEDS: *HR* Rivaroxaban 15 MG TABLET PO SCH ×3 (11:47→22:52)
[2016-07-28] MEDS: Acetaminophen 325 MG TABLET PO PRN (11:47)
--- NOTE | 2016-07-28 13:38 | Discharge Summary ---
<Laurita Reyes - Last Filed: 07/29/16 16:47> Date of Encounter: 07/29/16 Time of Encounter: 08:00 - Discharge Diagnosis (1) Pulmonary embolism Priority: Primary Status: Acute Qualifiers: Pulmonary embolism type: other Chronicity: acute Acute cor pulmonale presence: without acute cor pulmonale Qualified Code(s): I26.99 - Other pulmonary embolism without acute cor pulmonale (2) Anemia Priority: Primary Status: Chronic Qualifiers: Anemia type: iron deficiency Iron deficiency anemia type: other iron deficiency Qualified Code(s): D50.8 - Other iron deficiency anemias (3) Chest pain Priority: Secondary Status: Resolved Qualifiers: Chest pain type: precordial pain Qualified Code(s): R07.2 - Precordial pain (4) Diabetes mellitus Priority: Secondary Status: Acute Qualifiers: Diabetes mellitus type: type 2 Diabetes mellitus complication status: without complication Diabetes mellitus termite control representative insulin use: without termite control representative use Qualified Code(s): E11.9 - Type 2 diabetes mellitus without complications (5) Hypertension Priority: Secondary Status: Acute Qualifiers: Hypertension type: essential hypertension Qualified Code(s): I10 - Essential (primary) hypertension (6) Hypokalemia Priority: Secondary Status: Resolved (7) Hypothyroid Priority: Secondary Status: Chronic Qualifiers: Hypothyroidism type: acquired Qualified Code(s): E03.9 - Hypothyroidism, unspecified (8) DVT prophylaxis Priority: Secondary Status: Acute - Discharge Medications Prescriptions: Folic Acid 1 mg PO DAILY #30 tablet Potassium Chloride 10 meq PO DAILY #7 tab.er.prt Home Medications: Atorvastatin [Lipitor] 40 mg PO HS 06/05/16 [History] Escitalopram [Lexapro] 20 mg PO DAILY 06/05/16 [History] Ezetimibe [Zetia] 10 mg PO DAILY 06/05/16 [History] Levothyroxine [Synthroid] 100 mcg PO DAILY 06/05/16 [History] Losartan Potassium [Cozaar] 50 mg PO DAILY 06/05/16 [History] Omeprazole [PriLOSEC] 20 mg PO DAILY 06/05/16 [History] Tizanidine HCl 4 mg PO HS PRN 06/05/16 [History] AcetaZOLAMIDE [Acetazolamide] 500 mg PO BID 07/21/16 [History] Vitamin D3 07/21/16 [History] Aspirin 81 mg PO DAILY tab.chew 07/26/16 [Rx] Folic Acid 1 mg PO DAILY #30 tablet 07/26/16 [Rx] Potassium Chloride 10 meq PO DAILY #7 tab.er.prt 07/28/16 [Rx] Rivaroxaban [Xarelto] 15 mg PO BID tablet 07/29/16 [Rx] Allergies/Adverse Reactions: Allergies Penicillins [PCN] Allergy (Verified 05/17/15 08:45) Rash Procedures/tests Complete & Pending: Procedures Performed prior 72 hours Category Date Time Status CT angio chest [CT] Stat Cat Scan 07/26/16 17:[address] head/brain wo con [CT] Stat Cat Scan 07/26/16 18:48 Completed ECG 12 lead ECG [ECG] Routine Y 07/27/16 04:33 Completed EV limited echocardiogram Stat Y 07/27/16 06:17 Completed Venous Doppler [EV venous imaging LE BI] Stat Y 07/27/16 06:52 Completed - Notes to Outpatient Provider note to PCP: Patient had an echo on 07/22/16 which showed LVEF 55% with mild LVH and evidence of PFO. In setting of PE, she will likely need a follow up echo. Date of admission: 07/21/16 17:24 Primary care physician: Francine Wood Consults: 07/21/16 17:43 Consult to Cardiology [CONS] Routine Comment: Consulting Provider: Abebe Martinez Reason for Consult: NSTEMI Time Notified: 17:30 Call Completed: Yes 07/21/16 17:44 Consult to Cardiac Rehabilitation-Phase1 [CONS] Routine Comment: Reason for Consult: AMI Call Completed: Yes Consult to Nurse Navigator [CONS] Routine Comment: 07/21/16 20:08 Consult to Nutrition [CONS] Routine Comment: Consulting Provider: NUTRITION Reason for Dietary Consult: Diet Education 07/23/16 16:55 Consult to Gastroenterology [CONS] Routine Consulting Provider: Gastroenterology Michelle Reason for Consult: persistent diarrhea, Fe def anemia, weight loss Call Completed: Yes 07/25/16 07:19 Consult to Oncology Hematology [CONS] Routine Consulting Provider: Cheryle Nunez Reason for Consult: microcytic anemia, low folate Call Completed: Yes - Patient Status Disposition: Home, Self-Care Condition: Good Functional capacity at discharge: independent ambulation Overall status at discharge: patient is back to baseline - Discharge Instructions Instructions: Folic Acid (By mouth), Hypothyroidism (DC), Diabetes Mellitus Type 2 in Adults (DC), Chronic Hypertension (DC), Dyspnea (GEN), Anemia (GEN) Follow Up With: Francine Wood MD [Primary Care Provider] - 08/01/16 1:45 pm Cheryle Nunez MD [Partnered Physician] - 07/31/16 10:00 am Elmer Coronado MD [Partnered Physician] - Additional Instructions: Follow-up appointments: If there is not an appointment listed below, please call your physician and schedule a follow-up appointment. If you have congestive heart failure and your symptoms return, make an appointment with your physician. Symptoms: If your condition changes or you experience any of the following symptoms, notify your physician immediately: Unusual or worsening pain, fever, persistent nausea and vomiting, bleeding, increase in swelling (especially in your legs), sudden weight gain, extreme dizziness, chest pain, increased drainage or redness from a wound or incision. Go to the emergency department if you experience a problem with breathing. Weights: If you have a history of swelling or shortness of breath, weigh yourself daily and notify your physician if you have a weight gain of two or more pounds in one day or 5 or more pounds in a week. If you experience any of the warning signs for stroke: Sudden numbness or weakness of the face, arm or leg; especially on one side of the body, sudden confusion, trouble speaking or understanding, sudden trouble seeing in one or both eyes, sudden trouble walking, dizziness, loss of balance or coordination, sudden sever headache with no cause; Call 911 or go to the emergency room. Stroke is a medical emergency. Some risk factors for stroke: Age, cigarette smoking, diabetes, excessive alcohol consumption, family history , high blood pressure, overweight, physical inactivity, prior stroke, heart attack, diagnosis of carotid artery stenosis or other artery disease. If you smoke, STOP: Smoking or tobacco use significantly increases your risk of heart and lung disease. Your chance of disease greatly increases if you continue to smoke. For more information, call the [place] tobacco quit line for smoking cessation QUIT-NOW ( ) Follow up with PCP, Heme/Onc and Gi (Dr. Coronado), go to appointments as scheduled. Take new prescribed medications as directed. If you feel short of breath or have chest pain, go to emergency department immediately. - Diet and Activity Activity: increase activity as tolerated Diet: diabetic diet, low fat, low cholesterol Hospital course: Ms. Ludwig is a 61 year old female with PMHx of hypertension diabetes hypothyroidism GERD hyperlipidemia. Patient originally came to the hospital with CC of shortness of breath upon exertion. She also complained of 10/10 chest pain. She was initially evaluated in the emergency room and subsequently admitted to the hospital for further workup. Troponins were initially elevated but trended down overnight. Her chest pain was unlikely cardiac in nature. Hg initially measured at 7.4. Patient was found to have microcytic/hypochromic anemia and had anemia work up done. Stool occult blood was negative. Patient had EGD/Colonoscopy done while in the hospital. EGD showed normal esophagus with inflammation in stomach with biopsies taken. Colonoscopy revealed a diverticula and polyp. Patient was found to have low iron. Celiac disease markers were mildly elevated, and patient was told that she would likely benefit from a gluten free diet. Consult to hematology was made for anemia, and hematology recommended that patient be seen outpatient and be scheduled for IV iron at that time. On day 6 of the hospital stay, patient continued to remain stable and was ready for discharge. At approximately 6pm on 07/26/16, patient was preparing for discharge and got up to go to the bathroom and was fond to be pale, diaphoretic , and had some minor tremors and a near syncopal episode (patient never fully lost consciousness). Her heart rate was tachycardic, but regular. Her vital signs were stable except for her oxygen level, which was in the 80% on room air. She was placed on 15L nonrebreather, which brought her saturation up to 100 %. Patient's discharge order was canceled at that time and she was kept in the hospital for further workup. Patient was very lethargic and was slow to answer questions, CT head was negative for any acute intracranial abnormality. There was concern for pulmonary embolism, so patient was placed on heparin drip. CT Angiogram showed evidence of large bilateral pulmonary emboli involving all lobar branches of the distal right main pulmonary artery. [place]iah doppler of lower extremities showed acute thrombus in the left popliteal and lesser saphenous vein. Hematology/Oncology recommended Xarelto starter pack for detention anticoagulation. Heparin drip was stopped, and patient was started on Xarelto and monitored. Patient had echo in the hospital that showed evidence of PFO, so she will likely need follow up echo done outpatient by PCP. Patient was educated on importance of ambulation and taking her anticoagulation medications regularly to prevent further development of DVT/PE. Patient was encouraged to get up out of bed and ambulate the halls during the remainder of her hospital day. On day of discharge, patient was stable, was able to move and walk around without oxygen desaturations, and she denied any complains of shortness of breath or chest pain. Plan: Follow up with PCP within one week. Continue folic acid supplements. Follow up with Oncology- appointment will be made by escrow secretary. ROHIT within one week after discharge to check potassium levels. Follow up with Gastroenterology-Dr. Coronado- work up for anemia started in hospital. Must discuss biopsy results from EGD. Take Xarelto starter pack as directed, heme/onc will continue to refill. - Time Spent with Patient Total time spent providing and/or coordinating discharge services: Less than 30 minutes - Constitutional Vitals: Temp Pulse Resp BP Pulse Ox 97.8 F 76 20 114/63 93 L 07/28/16 12:10 07/28/16 12:10 07/28/16 12:10 07/28/16 12:10 07/28/16 12:10 General appearance: Present: A&O X 3, pleasant, obese, answers questions appropriately (sluggish responses to questions. she is s/p EGD/colonoscopy. ) - Head Head exam: Present: atraumatic, normocephalic - Eye Eye exam: Present: PERRL Pupils: Present: PERRL - Neck Neck exam general surgery: Present: supple, trachea midline - Respiratory Respiratory exam: Present: CTAB - Cardiovascular Cardiovascular exam: Present: RRR, +S1, +S2 - GI/Abdominal GI/Abdominal exam: Present: normal bowel sounds, soft. Absent: distended, tenderness - Extremities Exam Extremities exam: Present: normal inspection, radial pulses palpable and symetrical. Absent: cyanotic, pedal edema - Neurological Exam Neurological exam: Present: alert, oriented X3, no focal deficits. Absent: facial droop, speech deficit - Psychiatric Psychiatric exam: Present: normal affect, normal mood <Clayton Devries Mehul - Last Filed: 07/30/16 17:16> - Discharge Diagnosis (1) Pulmonary embolism Status: Acute Qualifiers: Pulmonary embolism type: other Chronicity: acute Acute cor pulmonale presence: without acute cor pulmonale Qualified Code(s): I26.99 - Other pulmonary embolism without acute cor pulmonale (2) DVT, popliteal, acute Status: Acute Qualifiers: Laterality: left Qualified Code(s): I82.432 - Acute embolism and thrombosis of left popliteal vein (3) Non-ST elevation myocardial infarction (NSTEMI), type 2 Status: Resolved (4) Hypokalemia Status: Resolved (5) Anemia Status: Chronic Qualifiers: Anemia type: iron deficiency Iron deficiency anemia type: other iron deficiency Qualified Code(s): D50.8 - Other iron deficiency anemias (6) Diabetes mellitus Status: Acute Qualifiers: Diabetes mellitus type: type 2 Diabetes mellitus complication status: without complication Diabetes mellitus termite control representative insulin use: without termite control representative use Qualified Code(s): E11.9 - Type 2 diabetes mellitus without complications (7) Hypertension Status: Acute Qualifiers: Hypertension type: essential hypertension Qualified Code(s): I10 - Essential (primary) hypertension (8) Diarrhea Status: Chronic Qualifiers: Diarrhea type: unspecified type Qualified Code(s): R19.7 - Diarrhea, unspecified (9) Low folate Status: Chronic (10) Hypomagnesemia Status: Resolved (11) Hypothyroid Status: Chronic Qualifiers: Hypothyroidism type: acquired Qualified Code(s): E03.9 - Hypothyroidism, unspecified Date of admission: 07/21/16 17:24 Primary care physician: Francine Wood Consults: 07/21/16 17:43 Consult to Cardiology [CONS] Routine Comment: Consulting Provider: Cardiology Michelle Reason for Consult: NSTEMI Time Notified: 17:30 Call Completed: Yes 07/21/16 17:44 Consult to Cardiac Rehabilitation-Phase1 [CONS] Routine Comment: Reason for Consult: AMI Call Completed: Yes Consult to Nurse Navigator [CONS] Routine Comment: 07/21/16 20:08 Consult to Nutrition [CONS] Routine Comment: Consulting Provider: NUTRITION Reason for Dietary Consult: Diet Education 07/23/16 16:55 Consult to Gastroenterology [CONS] Routine Consulting Provider: Gastroenterkunal Martinez Reason for Consult: persistent diarrhea, Fe def anemia, weight loss Call Completed: Yes 07/25/16 07:19 Consult to Oncology Hematology [CONS] Routine Consulting Provider: Cheryle Nunez Reason for Consult: microcytic anemia, low folate Call Completed: Yes Hospital course: Ms. Ludwig is a 61 year old female - Time Spent with Patient Total time spent providing and/or coordinating discharge services: 42min - Constitutional Vitals: Temp Pulse Resp BP Pulse Ox 98.0 F 72 15 117/66 96 07/29/16 10:28 07/29/16 10:28 07/29/16 07:16 07/29/16 10:28 07/29/16 10:28 - Attending Attestation I examined this patient and my medical decision-making was reviewed with the Resident Physician on 07/29/16. I agree with the documented findings, disposition and treatment plan as described except to the extent set forth below. Ms. Ludwig is feeling well today. She has been up ambulating without difficulty and has had no dyspnea. She has a good appetite. No fever noted. BP is good. Exam Alert. Comfortable Heart reg Lungs clear Plan D/C home today I discussed with the patient and her parents that she still has a DVT in her L leg. At this point anticoagulation does not dissolve the clot. If she has recurrent symptoms she needs to return to ED.
[2016-07-29 04:55] LABS: Basophils % 0.3 %; Eosinophils # 0.2 K/mcL (0.0-0.6); Eosinophils % 1.6 %; Hematocrit 29.3 % (35.3-44.9); Hemoglobin 8.1 g/dL (11.5-15.4); Immature Granulocytes % 0.9 % (0-4); Lymphocytes # 1.9 K/mcL (0.6-4.6); Lymphocytes % 16.4 %; Mean Corpuscular HGB Conc 27.6 g/dL (31.6-35.5); Mean Corpuscular Hemoglobin 19.6 pg (28.0-33.3); Mean Corpuscular Volume 70.8 fL (83.0-100.0); Mean Platelet Volume 10.7 fL (9.4-12.4); Monocytes # 0.7 K/mcL (0.0-1.3); Monocytes % 5.6 %; Neutrophils # 8.8 K/mcL (1.6-8.9); Platelet Count 324 K/mcL (140-400); Red Blood Count 4.14 M/mcL (3.82-4.97); Red Cell Distribution Width 22.5 % (11.5-14.5); Segmented Neutrophils % 75.2 %
[2016-07-29 05:09] LABS: BUN/Creatinine Ratio 23 (6-26); Blood Urea Nitrogen 17 mg/dL (7-20); Calcium 9.1 mg/dL (8.6-10.8); Carbon Dioxide 26 mEq/L (19-29); Chloride 105 mEq/L (98-109); Glucose 142 mg/dL (70-99); Osmolality,Calculated 294 (280-300); Potassium 3.7 mEq/L (3.5-4.5); Sodium 140 mEq/L (136-145); eGFR For African Americans > 60 (> 60); eGFR For Non-African Americans > 60 (> 60)
[2016-07-29 05:33] LABS: Platelet Estimate Normal (Normal)
[2016-07-29 05:34] LABS: Anisocytosis 2+ (Not Present); Hypochromasia Present (Not Present); Poikilocytosis 1+ (Not Present)
[2016-07-29 05:35] LABS: Ovalocytes 1+ (Not Present)
[2016-07-29] MEDS: Aspirin 81 MG TAB.CHEW PO SCH (07:46)
[2016-07-29] MEDS: Folic Acid 1 MG TABLET PO SCH (07:46)
[2016-07-29] MEDS: *HR* Rivaroxaban 15 MG TABLET PO SCH (07:47)
[2016-07-29] MEDS: Insulin LISPRO 300 UNITS/3 ML VIAL SQ SCH (07:48)
[2016-07-29] MEDS: (Ezetimibe [Zetia] 10 MG) PO SCH (07:51)
[2016-07-29] MEDS ORDERED: Magnesium Sulfate 2 GM in D5% in Water 100 ML IVPB ONE (08:32)
[2016-07-29 10:30] VITALS: BP 117/66
[2016-07-29] MEDS: Acetaminophen 325 MG TABLET PO PRN (10:56)
== END 2016-07-29 13:56 | disposition home or self-care (01) | DRG 811 ==
LOC: 2NENU 12:16 → EMEROO 12:16 → 2NENU 15:44 → SUATTDRO 17:24
PROVIDERS: ADMIT Internal Medicine; ATTEND Internal Medicine
PROC: ENDOEBX (2016-07-24 13:00)

== ENCOUNTER 2017-03-06 16:43 | Inpatient (IN) ==
--- NOTE | 2017-03-06 17:30 | Emergency Department Note ---
Disposition Clinical Impression: C. difficile colitis, Hypokalemia, Dehydration, Elevated troponin I level Pulmonary emboli Qualifiers: Pulmonary embolism type: other Chronicity: acute Acute cor pulmonale presence: without acute cor pulmonale Qualified Code(s): I26.99 - Other pulmonary embolism without acute cor pulmonale Disposition: Still a Patient Condition: Critical Referrals: Francine Wood MD [Primary Care Provider] - Time of Disposition: 00:28 General Adult HPI - General Stated complaint: 02/23 bowel surgery// N/V/D Time Seen by Provider: 03/06/17 17:19 Source: patient Mode of arrival: ambulatory Limitations: no limitations Nursing Notes Reviewed: Yes Vital Signs Reviewed: Yes - History of Present Illness HPI Narrative: Patient is a 62-year-old female who presents to [facility] ED with chief complaint of nausea, vomiting, abdominal pain and diarrhea. States she had surgery on February 23 in which they cauterized some bleeding vessels in her small intestine. This was performed at [facility]. States ever since then, she has had some persistent nausea with vomiting and generalized abdominal pain. Denies any fevers or chills. States over the last 3 days, she has had persistent watery diarrhea. Past medical history significant for hypertension, hyperlipidemia, diabetes, GERD, depression and hypothyroidism. Onset (ago): week(s) Location: abdomen Radiation: non-radiation Pain Severity: moderate Quality: aching Consistency: intermittent Improves with: nothing Worsens with: nothing Associated symptoms: Reports: loss of appetite, nausea/vomiting. Denies: fever/ chills, shortness of breath Treatments Prior to Arrival: none - Related Data Home Medications Medication Instructions Recorded Confirmed Atorvastatin [Lipitor] 40 mg PO HS 06/05/16 03/06/17 Escitalopram [Lexapro] 20 mg PO DAILY 06/05/16 03/06/17 Ezetimibe [Zetia] 10 mg PO DAILY 06/05/16 03/06/17 Levothyroxine [Synthroid] 100 mcg PO QAM 06/05/16 03/06/17 Omeprazole [PriLOSEC] 20 mg PO DAILY 06/05/16 03/06/17 acetaZOLAMIDE [Acetazolamide] 500 mg PO BID 07/21/16 03/06/17 Topiramate [Topamax] 50 mg PO BID 12/13/16 03/06/17 Losartan [Cozaar] 25 mg PO DAILY 03/06/17 03/06/17 Previous Rx's Medication Instructions Recorded Aspirin 81 mg PO DAILY tab.chew 07/26/16 Cyanocobalamin (B-12) [Vitamin B12] 1,000 mcg PO DAILY #30 tablet 08/28/16 Folic Acid 1 mg PO DAILY #30 tablet 02/21/17 Allergies Allergy/AdvReac Type Severity Reaction Status Date / Time Penicillins [PCN] Allergy Rash Verified 01/19/17 00:29 All systems ED: reviewed and negative except as stated. Past Medical History - Past Medical History Attestation: Yes The following information was validated with the patient. Source: patient Medical history: Reports: diabetes, GERD, hyperlipidemia, hypertension, pulmonary embolus, other Surgical history: Reports: appendectomy, cholecystectomy, hysterectomy, other Psychiatric history: Reports: depression - Social History Smoking Status: Never smoker Smokeless Tobacco Status: No Alcohol use: Reports: none Drug use: Reports: none Physical Exam - General Limitations: no limitations General appearance: alert, in no apparent distress - Head Head exam: atraumatic, normocephalic, normal inspection - Eye Eye exam: Present: normal appearance, EOMI, other (Pelvic conjunctiva) - ENT ENT exam: normal exam, normal oropharynx, mucous membranes moist - Neck Neck exam: Present: normal inspection, full ROM, trachea midline - Chest Chest inspection: Present: normal inspection, symmetric chest wall rise - Respiratory Respiratory exam: Present: normal lung sounds bilaterally - Cardiovascular Cardiovascular exam: Present: normal rhythm, tachycardia - Abdominal Exam Abdominal exam: Present: soft, tenderness, normal bowel sounds. Absent: distention, guarding, rebound, rigidity Abdominal tenderness: Present: diffuse - Extremities Exam Extremities exam: Present: normal inspection, full ROM. Absent: tenderness, pedal edema - Back Exam Back exam: Present: normal inspection, full ROM. Absent: tenderness - Neurological Exam Neurological exam: Present: alert - Psychiatric Psychiatric exam: Present: normal affect, normal mood - Skin Skin exam: Present: warm, dry, intact, normal color Course Course Narrative: Patient seen and examined. Generalized abdominal pain, nausea with vomiting, diarrhea. States her diarrhea has been very watery. Due to her recent procedures, we will check a GI panel for possible C. difficile. We will place an IV, give 1 L fluid bolus and get labs including a CBC, BMP, lactic acid, lipase, type and screen. Concern for some anemia due to patient being so pale, tachycardic, hypoxemic with her oxygen saturation at 89% on room air. - Reevaluation(s) Reevaluation #1: Hgb 9, denies any current SOB. With her persistent hypoxemia, pt states they remarked after her surgery that she may have baseline low O2. 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 CTA chest ordered to R/O PE. Pt again denies any chest pain or SOB. CT abd/ pelvis ordered also since pt has been having the persistent abd pain. Lab also called with critical K 2.3. 40mEQ K rider ordered. Also +c difficile. Oral vanc and flagyl ordered. Time: 23:42 Reevaluation #2: Spoke with radiologist Dr. Perez who states central pulmonary emboli extending into all lobes. LV:RV ratio 1.5, RV strain. Heparin drip started. Bedside echo does show signs of RV strain as well. Pt will be admitted to ICU. Time: 23:51 Reevaluation #3: Spoke with Dr. Hardin who has accepted to ICU. Will talk with IR about catheter directed thrombolytics. Time: 00:37 Vital Signs Temperature 98.8 F 03/06/17 17:29 Pulse Rate 113 03/06/17 17:29 Respiratory Rate 20 03/06/17 17:29 Blood Pressure 108/85 03/06/17 17:29 O2 Sat by Pulse Oximetry 91 03/06/17 17:29 Temperature 98.8 F 03/06/17 17:29 Pulse Rate 102 03/07/17 00:31 Respiratory Rate 20 03/07/17 00:31 Blood Pressure 139/91 03/07/17 00:31 O2 Sat by Pulse Oximetry 92 03/07/17 00:31 Oxygen Delivery Oxygen Delivery Nasal Cannula Medical Decision Making - Medical Records Medical records reviewed: Yes I reviewed the patient's medical records. - Lab Data Lab results reviewed: Yes I reviewed the patient's lab results. Result diagrams: 03/06/17 21:15 03/06/17 21:15 Lab Results 03/06/17 03/06/17 03/06/17 Range/Units 19:16 19:16 21:15 WBC 11.6 H (4.3-11.1) K/mcL RBC 4.45 (3.82-4.97) M/mcL Hgb 9.0 L (11.5-15.4) g/dL Hct 30.9 L (35.3-44.9) % MCV 69.4 L (83.0-100.0) fL MCH 20.2 L (28.0-33.3) pg MCHC 29.1 L (31.6-35.5) g/dL RDW 16.8 H (11.5-14.5) % Plt Count 248 (140-400) K/mcL MPV 10.4 (9.4-12.4) fL Immature Gran % 1.9 (0-4) % Seg Neutrophils % 78.7 % Lymphocytes % 11.6 % Monocytes % 7.4 % Eosinophils % 0.1 % Basophils % 0.3 % Neutrophils # 9.1 H (1.6-8.9) K/mcL Lymphocytes # 1.4 (0.6-4.6) K/mcL Monocytes # 0.9 (0.0-1.3) K/mcL Eosinophils # 0.0 (0.0-0.6) K/mcL Basophils # 0.0 (0.0-0.2) K/mcL Nucleated RBCs/100 WBC 0.2 H (0) /100 WBC Platelet Estimate Normal (Normal) Polychromasia 1+ A (Not Present) Hypochromasia Present A (Not Present) Poikilocytosis 1+ A (Not Present) Anisocytosis 1+ A (Not Present) Microcytosis Present A (Not Present) PT (9.4-12.1) Seconds INR APTT (26.0-36.0) Seconds Sodium (136-145) mEq/L Potassium (3.5-4.5) mEq/L Chloride (98-109) mEq/L Carbon Dioxide (19-29) mEq/L BUN (7-20) mg/dL Creatinine (0.57-1.11) mg/dL Est GFR ( Amer) (> 60) Est GFR (Non-Af Amer) (> 60) BUN/Creatinine Ratio (6-26) Glucose (70-99) mg/dL Calculated Osmolality (280-300) Lactic Acid (0.5-2.2) mmol/L Calcium (8.6-10.8) mg/dL Troponin I (0-0.03) ng/mL B-Natriuretic Peptide (0-100) pg/mL Lipase (8-78) Units/L Urine Color (Yellow) Urine Clarity (Clear) Urine pH (5.0-8.0) pH Units Ur Specific [place] (1.010-1.025) Urine Protein (Neg-Trace) mg/dL Urine Glucose (UA) (Normal) mg/dL Urine Ketones (Negative) mg/dL Urine Blood (Negative) Urine Nitrite (Negative) Urine Bilirubin (Negative) Urine Urobilinogen (Normal) mg/dL Ur Leukocyte Esterase (Negative) Urine Microscopic RBC (0-3) per hpf Urine Microscopic WBC (0-3) per hpf Ur Squamous Epith Cells (None-Few) per lpf Urine Bacteria (None-Few) per hpf Hyaline Casts (None-Few) per lpf Ur Culture Indicated? (NO) Stl C. cayetanensis PCR Not detected (Not detect) Stool Rotavirus A PCR Not detected (Not detect) Stl Adenov F 40/41 PCR Not detected (Not detect) Stool Astrovirus (PCR) Not detected (Not detect) Stool Campylobacter PCR Not detected (Not detect) Stl C. diff Tox B Gene Positive (Negative) Stl C. diff Tox A/B PCR See reflex test A (Not detect) Stool Cryptosporidium PCR Not detected (Not detect) Stl Sh Tox Pr E STEC PCR Not detected (Not detect) Stool E coli O157 PCR Not detected (Not detect) Stl Enterotoxigenic E PCR Not detected (Not detect) Stool EPEC (PCR) Not detected (Not detect) Stool EAEC (PCR) Not detected (Not detect) Stl E. histolytica PCR Not detected (Not detect) Stool Giardia Lamblia PCR Not detected (Not detect) Stool Salmonella PCR Not detected (Not detect) Stool Sapovirus (PCR) Not detected (Not detect) Stl P. shigelloides PCR Not detected (Not detect) Stl Shigella/EIEC PCR Not detected (Not detect) St Y.enterocolitica PCR Not detected (Not detect) Stool Vibrio (PCR) Not detected (Not detect) Stl Vibrio cholerae PCR Not detected (Not detect) Stl Norovirus GI/GII PCR Not detected (Not detect) Stl GI Panel (PCR) Com See below Blood Type Antibody Screen 03/06/17 03/06/17 03/06/17 Range/Units 21:15 21:15 21:15 WBC (4.3-11.1) K/mcL RBC (3.82-4.97) M/mcL Hgb (11.5-15.4) g/dL Hct (35.3-44.9) % MCV (83.0-100.0) fL MCH (28.0-33.3) pg MCHC (31.6-35.5) g/dL RDW (11.5-14.5) % Plt Count (140-400) K/mcL MPV (9.4-12.4) fL Immature Gran % (0-4) % Seg Neutrophils % % Lymphocytes % % Monocytes % % Eosinophils % % Basophils % % Neutrophils # (1.6-8.9) K/mcL Lymphocytes # (0.6-4.6) K/mcL Monocytes # (0.0-1.3) K/mcL Eosinophils # (0.0-0.6) K/mcL Basophils # (0.0-0.2) K/mcL Nucleated RBCs/100 WBC (0) /100 WBC Platelet Estimate (Normal) Polychromasia (Not Present) Hypochromasia (Not Present) Poikilocytosis (Not Present) Anisocytosis (Not Present) Microcytosis (Not Present) PT (9.4-12.1) Seconds INR APTT (26.0-36.0) Seconds Sodium 136 (136-145) mEq/L Potassium 2.3 L* (3.5-4.5) mEq/L Chloride 106 (98-109) mEq/L Carbon Dioxide 19 (19-29) mEq/L BUN 16 (7-20) mg/dL Creatinine 0.85 (0.57-1.11) mg/dL Est GFR ( Amer) > 60 (> 60) Est GFR (Non-Af Amer) > 60 (> 60) BUN/Creatinine Ratio 19 (6-26) Glucose 174 H (70-99) mg/dL Calculated Osmolality 287 (280-300) Lactic Acid 1.9 (0.5-2.2) mmol/L Calcium 8.6 (8.6-10.8) mg/dL Troponin I (0-0.03) ng/mL B-Natriuretic Peptide (0-100) pg/mL Lipase 13 (8-78) Units/L Urine Color (Yellow) Urine Clarity (Clear) Urine pH (5.0-8.0) pH Units Ur Specific [place] (1.010-1.025) Urine Protein (Neg-Trace) mg/dL Urine Glucose (UA) (Normal) mg/dL Urine Ketones (Negative) mg/dL Urine Blood (Negative) Urine Nitrite (Negative) Urine Bilirubin (Negative) Urine Urobilinogen (Normal) mg/dL Ur Leukocyte Esterase (Negative) Urine Microscopic RBC (0-3) per hpf Urine Microscopic WBC (0-3) per hpf Ur Squamous Epith Cells (None-Few) per lpf Urine Bacteria (None-Few) per hpf Hyaline Casts (None-Few) per lpf Ur Culture Indicated? (NO) Stl C. cayetanensis PCR (Not detect) Stool Rotavirus A PCR (Not detect) Stl Adenov F 40/41 PCR (Not detect) Stool Astrovirus (PCR) (Not detect) Stool Campylobacter PCR (Not detect) Stl C. diff Tox B Gene (Negative) Stl C. diff Tox A/B PCR (Not detect) Stool Cryptosporidium PCR (Not detect) Stl Sh Tox Pr E STEC PCR (Not detect) Stool E coli O157 PCR (Not detect) Stl Enterotoxigenic E PCR (Not detect) Stool EPEC (PCR) (Not detect) Stool EAEC (PCR) (Not detect) Stl E. histolytica PCR (Not detect) Stool Giardia Lamblia PCR (Not detect) Stool Salmonella PCR (Not detect) Stool Sapovirus (PCR) (Not detect) Stl P. shigelloides PCR (Not detect) Stl Shigella/EIEC PCR (Not detect) St Y.enterocolitica PCR (Not detect) Stool Vibrio (PCR) (Not detect) Stl Vibrio cholerae PCR (Not detect) Stl Norovirus GI/GII PCR (Not detect) Stl GI Panel (PCR) Com Blood Type O POSITIVE Antibody Screen NEGATIVE 03/06/17 03/06/17 03/06/17 Range/Units 21:31 23:45 23:45 WBC (4.3-11.1) K/mcL RBC (3.82-4.97) M/mcL Hgb (11.5-15.4) g/dL Hct (35.3-44.9) % MCV (83.0-100.0) fL MCH (28.0-33.3) pg MCHC (31.6-35.5) g/dL RDW (11.5-14.5) % Plt Count (140-400) K/mcL MPV (9.4-12.4) fL Immature Gran % (0-4) % Seg Neutrophils % % Lymphocytes % % Monocytes % % Eosinophils % % Basophils % % Neutrophils # (1.6-8.9) K/mcL Lymphocytes # (0.6-4.6) K/mcL Monocytes # (0.0-1.3) K/mcL Eosinophils # (0.0-0.6) K/mcL Basophils # (0.0-0.2) K/mcL Nucleated RBCs/100 WBC (0) /100 WBC Platelet Estimate (Normal) Polychromasia (Not Present) Hypochromasia (Not Present) Poikilocytosis (Not Present) Anisocytosis (Not Present) Microcytosis (Not Present) PT (9.4-12.1) Seconds INR APTT (26.0-36.0) Seconds Sodium (136-145) mEq/L Potassium (3.5-4.5) mEq/L Chloride (98-109) mEq/L Carbon Dioxide (19-29) mEq/L BUN (7-20) mg/dL Creatinine (0.57-1.11) mg/dL Est GFR ( Amer) (> 60) Est GFR (Non-Af Amer) (> 60) BUN/Creatinine Ratio (6-26) Glucose (70-99) mg/dL Calculated Osmolality (280-300) Lactic Acid (0.5-2.2) mmol/L Calcium (8.6-10.8) mg/dL Troponin I 0.62 H* (0-0.03) ng/mL B-Natriuretic Peptide 346 H (0-100) pg/mL Lipase (8-78) Units/L Urine Color Dark Yellow (Yellow) Urine Clarity Clear (Clear) Urine pH 6.0 (5.0-8.0) pH Units Ur Specific [place] 1.030 H (1.010-1.025) Urine Protein 30 H (Neg-Trace) mg/dL Urine Glucose (UA) Normal (Normal) mg/dL Urine Ketones Trace H (Negative) mg/dL Urine Blood Negative (Negative) Urine Nitrite Negative (Negative) Urine Bilirubin Small H (Negative) Urine Urobilinogen Normal (Normal) mg/dL Ur Leukocyte Esterase Negative (Negative) Urine Microscopic RBC 3-5 H (0-3) per hpf Urine Microscopic WBC 0-3 (0-3) per hpf Ur Squamous Epith Cells Many H (None-Few) per lpf Urine Bacteria None Seen (None-Few) per hpf Hyaline Casts Few (None-Few) per lpf Ur Culture Indicated? NO (NO) Stl C. cayetanensis PCR (Not detect) Stool Rotavirus A PCR (Not detect) Stl Adenov F 40/41 PCR (Not detect) Stool Astrovirus (PCR) (Not detect) Stool Campylobacter PCR (Not detect) Stl C. diff Tox B Gene (Negative) Stl C. diff Tox A/B PCR (Not detect) Stool Cryptosporidium PCR (Not detect) Stl Sh Tox Pr E STEC PCR (Not detect) Stool E coli O157 PCR (Not detect) Stl Enterotoxigenic E PCR (Not detect) Stool EPEC (PCR) (Not detect) Stool EAEC (PCR) (Not detect) Stl E. histolytica PCR (Not detect) Stool Giardia Lamblia PCR (Not detect) Stool Salmonella PCR (Not detect) Stool Sapovirus (PCR) (Not detect) Stl P. shigelloides PCR (Not detect) Stl Shigella/EIEC PCR (Not detect) St Y.enterocolitica PCR (Not detect) Stool Vibrio (PCR) (Not detect) Stl Vibrio cholerae PCR (Not detect) Stl Norovirus GI/GII PCR (Not detect) Stl GI Panel (PCR) Com Blood Type Antibody Screen 03/06/17 Range/Units 23:45 WBC (4.3-11.1) K/mcL RBC (3.82-4.97) M/mcL Hgb (11.5-15.4) g/dL Hct (35.3-44.9) % MCV (83.0-100.0) fL MCH (28.0-33.3) pg MCHC (31.6-35.5) g/dL RDW (11.5-14.5) % Plt Count (140-400) K/mcL MPV (9.4-12.4) fL Immature Gran % (0-4) % Seg Neutrophils % % Lymphocytes % % Monocytes % % Eosinophils % % Basophils % % Neutrophils # (1.6-8.9) K/mcL Lymphocytes # (0.6-4.6) K/mcL Monocytes # (0.0-1.3) K/mcL Eosinophils # (0.0-0.6) K/mcL Basophils # (0.0-0.2) K/mcL Nucleated RBCs/100 WBC (0) /100 WBC Platelet Estimate (Normal) Polychromasia (Not Present) Hypochromasia (Not Present) Poikilocytosis (Not Present) Anisocytosis (Not Present) Microcytosis (Not Present) PT 12.6 H (9.4-12.1) Seconds INR 1.2 APTT 27.6 (26.0-36.0) Seconds Sodium (136-145) mEq/L Potassium (3.5-4.5) mEq/L Chloride (98-109) mEq/L Carbon Dioxide (19-29) mEq/L BUN (7-20) mg/dL Creatinine (0.57-1.11) mg/dL Est GFR ( Amer) (> 60) Est GFR (Non-Af Amer) (> 60) BUN/Creatinine Ratio (6-26) Glucose (70-99) mg/dL Calculated Osmolality (280-300) Lactic Acid (0.5-2.2) mmol/L Calcium (8.6-10.8) mg/dL Troponin I (0-0.03) ng/mL B-Natriuretic Peptide (0-100) pg/mL Lipase (8-78) Units/L Urine Color (Yellow) Urine Clarity (Clear) Urine pH (5.0-8.0) pH Units Ur Specific [place] (1.010-1.025) Urine Protein (Neg-Trace) mg/dL Urine Glucose (UA) (Normal) mg/dL Urine Ketones (Negative) mg/dL Urine Blood (Negative) Urine Nitrite (Negative) Urine Bilirubin (Negative) Urine Urobilinogen (Normal) mg/dL Ur Leukocyte Esterase (Negative) Urine Microscopic RBC (0-3) per hpf Urine Microscopic WBC (0-3) per hpf Ur Squamous Epith Cells (None-Few) per lpf Urine Bacteria (None-Few) per hpf Hyaline Casts (None-Few) per lpf Ur Culture Indicated? (NO) Stl C. cayetanensis PCR (Not detect) Stool Rotavirus A PCR (Not detect) Stl Adenov F 40/41 PCR (Not detect) Stool Astrovirus (PCR) (Not detect) Stool Campylobacter PCR (Not detect) Stl C. diff Tox B Gene (Negative) Stl C. diff Tox A/B PCR (Not detect) Stool Cryptosporidium PCR (Not detect) Stl Sh Tox Pr E STEC PCR (Not detect) Stool E coli O157 PCR (Not detect) Stl Enterotoxigenic E PCR (Not detect) Stool EPEC (PCR) (Not detect) Stool EAEC (PCR) (Not detect) Stl E. histolytica PCR (Not detect) Stool Giardia Lamblia PCR (Not detect) Stool Salmonella PCR (Not detect) Stool Sapovirus (PCR) (Not detect) Stl P. shigelloides PCR (Not detect) Stl Shigella/EIEC PCR (Not detect) St Y.enterocolitica PCR (Not detect) Stool Vibrio (PCR) (Not detect) Stl Vibrio cholerae PCR (Not detect) Stl Norovirus GI/GII PCR (Not detect) Stl GI Panel (PCR) Com Blood Type Antibody Screen - Radiology Data Radiology results reviewed: Yes I reviewed the patient's radiology results. Chest X-Ray 03/06/17 21:09 IMPRESSION: Right transjugular central venous catheter terminating in the superior vena cava. No pneumothorax or other acute process. D/ / Grady Ahn MD / Grady Ahn MD Interpreting Provider: Grady Ahn MD Abdomen/Pelvis CT 03/06/17 22:35 IMPRESSION: Colitis, greatest of the sigmoid colon, infectious or inflammatory. D/ / Kathrine Campbell Cha, MD / Kathrine Campbell Cha, MD Interpreting Provider: Kathrine Campbell Cha, MD Chest CTA 03/06/17 22:35 IMPRESSION: Central pulmonary emboli extending into lobar, segmental and subsegmental branches throughout both lungs. RV/LV ratio is 1.5. Findings were discussed with Rosmery Warren at 11:45 pm on 03/06/2017. D/ / Kathrine Campbell Cha, MD / Kathrine Campbell Cha, MD Interpreting Provider: Kathrine Campbell Cha, MD - EKG Data EKG #1 EKG attestation: Yes I reviewed and interpreted this EKG. EKG results narrative: EKG done at 1718 shows sinus tachycardia with a rate of [address] elevation. Patient does have ST depression in leads 1, aVL, V4, V5, V6. [place] deviation.
[2017-03-06] MEDS ORDERED: Ondansetron 4 MG/2 ML VIAL IVP ONE (18:07)
[2017-03-06] MEDS ORDERED: 0.9 % Sodium Chloride 1,000 ML IVC ONE ×2 (18:07→22:54)
--- NOTE | 2017-03-06 21:24 | Emergency Department Note ---
Disposition Clinical Impression: C. difficile colitis, Hypokalemia, Dehydration, Elevated troponin I level Pulmonary emboli Qualifiers: Pulmonary embolism type: other Chronicity: acute Acute cor pulmonale presence: without acute cor pulmonale Qualified Code(s): I26.99 - Other pulmonary embolism without acute cor pulmonale Disposition: Admitted As Inpatient Condition: Critical General Adult HPI - General Chief complaint: ED Abdominal Pain Stated complaint: 02/23 bowel surgery// N/V/D Time Seen by Provider: 03/06/17 17:19 Source: patient Mode of arrival: ambulatory Limitations: no limitations - History of Present Illness Location: abdomen Pain Scale: 6 Quality: aching Improves with: nothing Worsens with: nothing Associated symptoms: Reports: loss of appetite, nausea/vomiting. Denies: fever/ chills, shortness of breath Treatments Prior to Arrival: none - Related Data Home Medications Medication Instructions Recorded Confirmed Atorvastatin [Lipitor] 40 mg PO HS 06/05/16 03/06/17 Escitalopram [Lexapro] 20 mg PO DAILY 06/05/16 03/06/17 Ezetimibe [Zetia] 10 mg PO DAILY 06/05/16 03/06/17 Levothyroxine [Synthroid] 100 mcg PO QAM 06/05/16 03/06/17 Omeprazole [PriLOSEC] 20 mg PO DAILY 06/05/16 03/06/17 acetaZOLAMIDE [Acetazolamide] 500 mg PO BID 07/21/16 03/06/17 Topiramate [Topamax] 50 mg PO BID 12/13/16 03/06/17 Losartan [Cozaar] 25 mg PO DAILY 03/06/17 03/06/17 Previous Rx's Medication Instructions Recorded Aspirin 81 mg PO DAILY tab.chew 07/26/16 Cyanocobalamin (B-12) [Vitamin B12] 1,000 mcg PO DAILY #30 tablet 08/28/16 Folic Acid 1 mg PO DAILY #30 tablet 02/21/17 Allergies Allergy/AdvReac Type Severity Reaction Status Date / Time Penicillins [PCN] Allergy Rash Verified 01/19/17 00:29 Past Medical History - Past Medical History Medical history: Reports: diabetes, GERD, hyperlipidemia, hypertension, pulmonary embolus, other Surgical history: Reports: appendectomy, cholecystectomy, hysterectomy, other Psychiatric history: Reports: depression - Social History Smoking Status: Never smoker Smokeless Tobacco Status: No Alcohol use: Reports: none Drug use: Reports: none Physical Exam - General Limitations: no limitations General appearance: alert, in no apparent distress Course Vital Signs Temperature 98.8 F 03/06/17 17:29 Pulse Rate 113 03/06/17 17:29 Respiratory Rate 20 03/06/17 17:29 Blood Pressure 108/85 03/06/17 17:29 O2 Sat by Pulse Oximetry 91 03/06/17 17:29 Temperature 98.8 F 03/06/17 17:29 Pulse Rate 102 03/07/17 00:31 Respiratory Rate 20 03/07/17 00:31 Blood Pressure 139/91 03/07/17 00:31 O2 Sat by Pulse Oximetry 92 03/07/17 00:31 Oxygen Delivery Oxygen Delivery Nasal Cannula Procedures - Central Line Placement Right IJ Central Line Inserted*: Yes Central Line Catheter Replacement*: No Central Line Insertion: emergent Consent Obtained: written consent Procedural Pause: verify patient name and date of , timeout performed per policy, mihcael and assess the site, assemble equipment and verify supplies, perform hand hygiene Patient Placed on Monitor/Pulse Ox: Yes During the Procedure: clinician is wearing sterile gloves, cap, mask,& gown during insertion, sterile field and sterile technique are maintained, patient's face is covered with drape or mask and wearing a cap Central Line Prep: Chlorhexidine scrub Prep the Procedure Site: apply chloraprep to the skin using a back and forth scrubbing motion, apply chloraprep for 30 seconds (upper body), 1-2 min ( femoral sites), allow prep to dry, drape the patient with a full body drape Local Anesthetic: lidocaine 1% Ultrasound Used for Placement: Yes Central Line Lumen Inserted: triple Post Procedure: sutured in place, good blood return, all ports aspirated, flushed, capped, sterile dressing applied, guide wire removed and visualized Patient Tolerated Procedure: well, no complications Date: 03/06/17 Time: 21:24 Medical Decision Making - Lab Data Result diagrams: 03/06/17 21:15 03/06/17 21:15 Lab Results 03/06/17 03/06/17 03/06/17 Range/Units 19:16 19:16 21:15 WBC 11.6 H (4.3-11.1) K/mcL RBC 4.45 (3.82-4.97) M/mcL Hgb 9.0 L (11.5-15.4) g/dL Hct 30.9 L (35.3-44.9) % MCV 69.4 L (83.0-100.0) fL MCH 20.2 L (28.0-33.3) pg MCHC 29.1 L (31.6-35.5) g/dL RDW 16.8 H (11.5-14.5) % Plt Count 248 (140-400) K/mcL MPV 10.4 (9.4-12.4) fL Immature Gran % 1.9 (0-4) % Seg Neutrophils % 78.7 % Lymphocytes % 11.6 % Monocytes % 7.4 % Eosinophils % 0.1 % Basophils % 0.3 % Neutrophils # 9.1 H (1.6-8.9) K/mcL Lymphocytes # 1.4 (0.6-4.6) K/mcL Monocytes # 0.9 (0.0-1.3) K/mcL Eosinophils # 0.0 (0.0-0.6) K/mcL Basophils # 0.0 (0.0-0.2) K/mcL Nucleated RBCs/100 WBC 0.2 H (0) /100 WBC Platelet Estimate Normal (Normal) Polychromasia 1+ A (Not Present) Hypochromasia Present A (Not Present) Poikilocytosis 1+ A (Not Present) Anisocytosis 1+ A (Not Present) Microcytosis Present A (Not Present) PT (9.4-12.1) Seconds INR APTT (26.0-36.0) Seconds Sodium (136-145) mEq/L Potassium (3.5-4.5) mEq/L Chloride (98-109) mEq/L Carbon Dioxide (19-29) mEq/L BUN (7-20) mg/dL Creatinine (0.57-1.11) mg/dL Est GFR ( Amer) (> 60) Est GFR (Non-Af Amer) (> 60) BUN/Creatinine Ratio (6-26) Glucose (70-99) mg/dL Calculated Osmolality (280-300) Lactic Acid (0.5-2.2) mmol/L Calcium (8.6-10.8) mg/dL Troponin I (0-0.03) ng/mL B-Natriuretic Peptide (0-100) pg/mL Lipase (8-78) Units/L Urine Color (Yellow) Urine Clarity (Clear) Urine pH (5.0-8.0) pH Units Ur Specific [place] (1.010-1.025) Urine Protein (Neg-Trace) mg/dL Urine Glucose (UA) (Normal) mg/dL Urine Ketones (Negative) mg/dL Urine Blood (Negative) Urine Nitrite (Negative) Urine Bilirubin (Negative) Urine Urobilinogen (Normal) mg/dL Ur Leukocyte Esterase (Negative) Urine Microscopic RBC (0-3) per hpf Urine Microscopic WBC (0-3) per hpf Ur Squamous Epith Cells (None-Few) per lpf Urine Bacteria (None-Few) per hpf Hyaline Casts (None-Few) per lpf Ur Culture Indicated? (NO) Stl C. cayetanensis PCR Not detected (Not detect) Stool Rotavirus A PCR Not detected (Not detect) Stl Adenov F 40/41 PCR Not detected (Not detect) Stool Astrovirus (PCR) Not detected (Not detect) Stool Campylobacter PCR Not detected (Not detect) Stl C. diff Tox B Gene Positive (Negative) Stl C. diff Tox A/B PCR See reflex test A (Not detect) Stool Cryptosporidium PCR Not detected (Not detect) Stl Sh Tox Pr E STEC PCR Not detected (Not detect) Stool E coli O157 PCR Not detected (Not detect) Stl Enterotoxigenic E PCR Not detected (Not detect) Stool EPEC (PCR) Not detected (Not detect) Stool EAEC (PCR) Not detected (Not detect) Stl E. histolytica PCR Not detected (Not detect) Stool Giardia Lamblia PCR Not detected (Not detect) Stool Salmonella PCR Not detected (Not detect) Stool Sapovirus (PCR) Not detected (Not detect) Stl P. shigelloides PCR Not detected (Not detect) Stl Shigella/EIEC PCR Not detected (Not detect) St Y.enterocolitica PCR Not detected (Not detect) Stool Vibrio (PCR) Not detected (Not detect) Stl Vibrio cholerae PCR Not detected (Not detect) Stl Norovirus GI/GII PCR Not detected (Not detect) Stl GI Panel (PCR) Com See below Blood Type Antibody Screen 03/06/17 03/06/17 03/06/17 Range/Units 21:15 21:15 21:15 WBC (4.3-11.1) K/mcL RBC (3.82-4.97) M/mcL Hgb (11.5-15.4) g/dL Hct (35.3-44.9) % MCV (83.0-100.0) fL MCH (28.0-33.3) pg MCHC (31.6-35.5) g/dL RDW (11.5-14.5) % Plt Count (140-400) K/mcL MPV (9.4-12.4) fL Immature Gran % (0-4) % Seg Neutrophils % % Lymphocytes % % Monocytes % % Eosinophils % % Basophils % % Neutrophils # (1.6-8.9) K/mcL Lymphocytes # (0.6-4.6) K/mcL Monocytes # (0.0-1.3) K/mcL Eosinophils # (0.0-0.6) K/mcL Basophils # (0.0-0.2) K/mcL Nucleated RBCs/100 WBC (0) /100 WBC Platelet Estimate (Normal) Polychromasia (Not Present) Hypochromasia (Not Present) Poikilocytosis (Not Present) Anisocytosis (Not Present) Microcytosis (Not Present) PT (9.4-12.1) Seconds INR APTT (26.0-36.0) Seconds Sodium 136 (136-145) mEq/L Potassium 2.3 L* (3.5-4.5) mEq/L Chloride 106 (98-109) mEq/L Carbon Dioxide 19 (19-29) mEq/L BUN 16 (7-20) mg/dL Creatinine 0.85 (0.57-1.11) mg/dL Est GFR ( Amer) > 60 (> 60) Est GFR (Non-Af Amer) > 60 (> 60) BUN/Creatinine Ratio 19 (6-26) Glucose 174 H (70-99) mg/dL Calculated Osmolality 287 (280-300) Lactic Acid 1.9 (0.5-2.2) mmol/L Calcium 8.6 (8.6-10.8) mg/dL Troponin I (0-0.03) ng/mL B-Natriuretic Peptide (0-100) pg/mL Lipase 13 (8-78) Units/L Urine Color (Yellow) Urine Clarity (Clear) Urine pH (5.0-8.0) pH Units Ur Specific [place] (1.010-1.025) Urine Protein (Neg-Trace) mg/dL Urine Glucose (UA) (Normal) mg/dL Urine Ketones (Negative) mg/dL Urine Blood (Negative) Urine Nitrite (Negative) Urine Bilirubin (Negative) Urine Urobilinogen (Normal) mg/dL Ur Leukocyte Esterase (Negative) Urine Microscopic RBC (0-3) per hpf Urine Microscopic WBC (0-3) per hpf Ur Squamous Epith Cells (None-Few) per lpf Urine Bacteria (None-Few) per hpf Hyaline Casts (None-Few) per lpf Ur Culture Indicated? (NO) Stl C. cayetanensis PCR (Not detect) Stool Rotavirus A PCR (Not detect) Stl Adenov F 40/41 PCR (Not detect) Stool Astrovirus (PCR) (Not detect) Stool Campylobacter PCR (Not detect) Stl C. diff Tox B Gene (Negative) Stl C. diff Tox A/B PCR (Not detect) Stool Cryptosporidium PCR (Not detect) Stl Sh Tox Pr E STEC PCR (Not detect) Stool E coli O157 PCR (Not detect) Stl Enterotoxigenic E PCR (Not detect) Stool EPEC (PCR) (Not detect) Stool EAEC (PCR) (Not detect) Stl E. histolytica PCR (Not detect) Stool Giardia Lamblia PCR (Not detect) Stool Salmonella PCR (Not detect) Stool Sapovirus (PCR) (Not detect) Stl P. shigelloides PCR (Not detect) Stl Shigella/EIEC PCR (Not detect) St Y.enterocolitica PCR (Not detect) Stool Vibrio (PCR) (Not detect) Stl Vibrio cholerae PCR (Not detect) Stl Norovirus GI/GII PCR (Not detect) Stl GI Panel (PCR) Com Blood Type O POSITIVE Antibody Screen NEGATIVE 03/06/17 03/06/17 03/06/17 Range/Units 21:31 23:45 23:45 WBC (4.3-11.1) K/mcL RBC (3.82-4.97) M/mcL Hgb (11.5-15.4) g/dL Hct (35.3-44.9) % MCV (83.0-100.0) fL MCH (28.0-33.3) pg MCHC (31.6-35.5) g/dL RDW (11.5-14.5) % Plt Count (140-400) K/mcL MPV (9.4-12.4) fL Immature Gran % (0-4) % Seg Neutrophils % % Lymphocytes % % Monocytes % % Eosinophils % % Basophils % % Neutrophils # (1.6-8.9) K/mcL Lymphocytes # (0.6-4.6) K/mcL Monocytes # (0.0-1.3) K/mcL Eosinophils # (0.0-0.6) K/mcL Basophils # (0.0-0.2) K/mcL Nucleated RBCs/100 WBC (0) /100 WBC Platelet Estimate (Normal) Polychromasia (Not Present) Hypochromasia (Not Present) Poikilocytosis (Not Present) Anisocytosis (Not Present) Microcytosis (Not Present) PT (9.4-12.1) Seconds INR APTT (26.0-36.0) Seconds Sodium (136-145) mEq/L Potassium (3.5-4.5) mEq/L Chloride (98-109) mEq/L Carbon Dioxide (19-29) mEq/L BUN (7-20) mg/dL Creatinine (0.57-1.11) mg/dL Est GFR ( Amer) (> 60) Est GFR (Non-Af Amer) (> 60) BUN/Creatinine Ratio (6-26) Glucose (70-99) mg/dL Calculated Osmolality (280-300) Lactic Acid (0.5-2.2) mmol/L Calcium (8.6-10.8) mg/dL Troponin I 0.62 H* (0-0.03) ng/mL B-Natriuretic Peptide 346 H (0-100) pg/mL Lipase (8-78) Units/L Urine Color Dark Yellow (Yellow) Urine Clarity Clear (Clear) Urine pH 6.0 (5.0-8.0) pH Units Ur Specific [place] 1.030 H (1.010-1.025) Urine Protein 30 H (Neg-Trace) mg/dL Urine Glucose (UA) Normal (Normal) mg/dL Urine Ketones Trace H (Negative) mg/dL Urine Blood Negative (Negative) Urine Nitrite Negative (Negative) Urine Bilirubin Small H (Negative) Urine Urobilinogen Normal (Normal) mg/dL Ur Leukocyte Esterase Negative (Negative) Urine Microscopic RBC 3-5 H (0-3) per hpf Urine Microscopic WBC 0-3 (0-3) per hpf Ur Squamous Epith Cells Many H (None-Few) per lpf Urine Bacteria None Seen (None-Few) per hpf Hyaline Casts Few (None-Few) per lpf Ur Culture Indicated? NO (NO) Stl C. cayetanensis PCR (Not detect) Stool Rotavirus A PCR (Not detect) Stl Adenov F 40/41 PCR (Not detect) Stool Astrovirus (PCR) (Not detect) Stool Campylobacter PCR (Not detect) Stl C. diff Tox B Gene (Negative) Stl C. diff Tox A/B PCR (Not detect) Stool Cryptosporidium PCR (Not detect) Stl Sh Tox Pr E STEC PCR (Not detect) Stool E coli O157 PCR (Not detect) Stl Enterotoxigenic E PCR (Not detect) Stool EPEC (PCR) (Not detect) Stool EAEC (PCR) (Not detect) Stl E. histolytica PCR (Not detect) Stool Giardia Lamblia PCR (Not detect) Stool Salmonella PCR (Not detect) Stool Sapovirus (PCR) (Not detect) Stl P. shigelloides PCR (Not detect) Stl Shigella/EIEC PCR (Not detect) St Y.enterocolitica PCR (Not detect) Stool Vibrio (PCR) (Not detect) Stl Vibrio cholerae PCR (Not detect) Stl Norovirus GI/GII PCR (Not detect) Stl GI Panel (PCR) Com Blood Type Antibody Screen 03/06/17 Range/Units 23:45 WBC (4.3-11.1) K/mcL RBC (3.82-4.97) M/mcL Hgb (11.5-15.4) g/dL Hct (35.3-44.9) % MCV (83.0-100.0) fL MCH (28.0-33.3) pg MCHC (31.6-35.5) g/dL RDW (11.5-14.5) % Plt Count (140-400) K/mcL MPV (9.4-12.4) fL Immature Gran % (0-4) % Seg Neutrophils % % Lymphocytes % % Monocytes % % Eosinophils % % Basophils % % Neutrophils # (1.6-8.9) K/mcL Lymphocytes # (0.6-4.6) K/mcL Monocytes # (0.0-1.3) K/mcL Eosinophils # (0.0-0.6) K/mcL Basophils # (0.0-0.2) K/mcL Nucleated RBCs/100 WBC (0) /100 WBC Platelet Estimate (Normal) Polychromasia (Not Present) Hypochromasia (Not Present) Poikilocytosis (Not Present) Anisocytosis (Not Present) Microcytosis (Not Present) PT 12.6 H (9.4-12.1) Seconds INR 1.2 APTT 27.6 (26.0-36.0) Seconds Sodium (136-145) mEq/L Potassium (3.5-4.5) mEq/L Chloride (98-109) mEq/L Carbon Dioxide (19-29) mEq/L BUN (7-20) mg/dL Creatinine (0.57-1.11) mg/dL Est GFR ( Amer) (> 60) Est GFR (Non-Af Amer) (> 60) BUN/Creatinine Ratio (6-26) Glucose (70-99) mg/dL Calculated Osmolality (280-300) Lactic Acid (0.5-2.2) mmol/L Calcium (8.6-10.8) mg/dL Troponin I (0-0.03) ng/mL B-Natriuretic Peptide (0-100) pg/mL Lipase (8-78) Units/L Urine Color (Yellow) Urine Clarity (Clear) Urine pH (5.0-8.0) pH Units Ur Specific [place] (1.010-1.025) Urine Protein (Neg-Trace) mg/dL Urine Glucose (UA) (Normal) mg/dL Urine Ketones (Negative) mg/dL Urine Blood (Negative) Urine Nitrite (Negative) Urine Bilirubin (Negative) Urine Urobilinogen (Normal) mg/dL Ur Leukocyte Esterase (Negative) Urine Microscopic RBC (0-3) per hpf Urine Microscopic WBC (0-3) per hpf Ur Squamous Epith Cells (None-Few) per lpf Urine Bacteria (None-Few) per hpf Hyaline Casts (None-Few) per lpf Ur Culture Indicated? (NO) Stl C. cayetanensis PCR (Not detect) Stool Rotavirus A PCR (Not detect) Stl Adenov F 40/41 PCR (Not detect) Stool Astrovirus (PCR) (Not detect) Stool Campylobacter PCR (Not detect) Stl C. diff Tox B Gene (Negative) Stl C. diff Tox A/B PCR (Not detect) Stool Cryptosporidium PCR (Not detect) Stl Sh Tox Pr E STEC PCR (Not detect) Stool E coli O157 PCR (Not detect) Stl Enterotoxigenic E PCR (Not detect) Stool EPEC (PCR) (Not detect) Stool EAEC (PCR) (Not detect) Stl E. histolytica PCR (Not detect) Stool Giardia Lamblia PCR (Not detect) Stool Salmonella PCR (Not detect) Stool Sapovirus (PCR) (Not detect) Stl P. shigelloides PCR (Not detect) Stl Shigella/EIEC PCR (Not detect) St Y.enterocolitica PCR (Not detect) Stool Vibrio (PCR) (Not detect) Stl Vibrio cholerae PCR (Not detect) Stl Norovirus GI/GII PCR (Not detect) Stl GI Panel (PCR) Com Blood Type Antibody Screen Attestation Statement - Attestation Attestation: I was present and assisting throughout the procedure.
[2017-03-06 21:29] LABS: Basophils % 0.3 %; Eosinophils % 0.1 %; Nucleated Red Blood Cells 0.2 /100 WBC (0)
[2017-03-06 21:30] LABS: Hematocrit 30.9 % (35.3-44.9); Immature Granulocytes % 1.9 % (0-4); Lymphocytes # 1.4 K/mcL (0.6-4.6); Lymphocytes % 11.6 %; Mean Corpuscular HGB Conc 29.1 g/dL (31.6-35.5); Mean Corpuscular Hemoglobin 20.2 pg (28.0-33.3); Mean Corpuscular Volume 69.4 fL (83.0-100.0); Mean Platelet Volume 10.4 fL (9.4-12.4); Monocytes # 0.9 K/mcL (0.0-1.3); Monocytes % 7.4 %; Neutrophils # 9.1 K/mcL (1.6-8.9); Platelet Count 248 K/mcL (140-400); Red Blood Count 4.45 M/mcL (3.82-4.97); Red Cell Distribution Width 16.8 % (11.5-14.5); Segmented Neutrophils % 78.7 %
[2017-03-06 21:39] LABS: Adenovirus F 40/41 PCR Not detected (Not detect); Astrovirus PCR Not detected (Not detect); C.difficile Toxin A/B by PCR See reflex test (Not detect); Campylobacter by PCR Not detected (Not detect); Cryptosporidium by PCR Not detected (Not detect); Cyclospora cayetanensis PCR Not detected (Not detect); E. coli O157 by PCR Not detected (Not detect); Entamoeba histolytica PCR Not detected (Not detect); Enteroaggregative E.coli(EAEC) Not detected (Not detect); Enteropathogenic E.coli(EPEC) Not detected (Not detect); Enterotoxigenic E.coli (ETEC) Not detected (Not detect); Giardia lamblia PCR Not detected (Not detect); Norovirus GI/GII PCR Not detected (Not detect); Plesiomonas shigelloides PCR Not detected (Not detect); Rotavirus A PCR Not detected (Not detect); Salmonella PCR Not detected (Not detect); Sapovirus PCR Not detected (Not detect); Shig/EnteroinvasiveE coli EIEC Not detected (Not detect); Shigalike tox-prod E coli STEC Not detected (Not detect); Vibrio PCR Not detected (Not detect); Vibrio cholerae PCR Not detected (Not detect); Yersinia enterocolitica PCR Not detected (Not detect)
[2017-03-06 21:39] LABS: BUN/Creatinine Ratio 19 (6-26); Blood Urea Nitrogen 16 mg/dL (7-20); Calcium 8.6 mg/dL (8.6-10.8); Carbon Dioxide 19 mEq/L (19-29); Chloride 106 mEq/L (98-109); Glucose 174 mg/dL (70-99); Lipase 13 Units/L (8-78); Osmolality,Calculated 287 (280-300); Sodium 136 mEq/L (136-145); eGFR For African Americans > 60 (> 60); eGFR For Non-African Americans > 60 (> 60)
[2017-03-06 21:43] LABS: Potassium 2.3 mEq/L (3.5-4.5)
[2017-03-06] MEDS ORDERED: Potassium Chloride 40 MEQ/200 ML BAG IVPB ONE (21:44)
[2017-03-06 21:49] LABS: Bilirubin,Urine Small (Negative); Blood,Urine Negative (Negative); Clarity,Urine Clear (Clear); Color,Urine Dark Yellow (Yellow); Glucose,Urine (UA) Normal (Normal); Ketones,Urine Trace mg/dL (Negative); Leukocyte Esterase,Urine Negative (Negative); Nitrite,Urine Negative (Negative); Protein,Urine 30 mg/dL (Neg-Trace); Urobilinogen,Urine Normal (Normal)
[2017-03-06 21:50] LABS: Bacteria,Urine None Seen per hpf (None-Few); Hyaline Casts,Urine Few per lpf (None-Few); Squamous Epithelial Cell,Urine Many per lpf (None-Few); WBC,Urine 0-3 per hpf (0-3)
[2017-03-06 22:05] LABS: Anisocytosis 1+ (Not Present); Microcytosis Present (Not Present); Platelet Estimate Normal (Normal)
[2017-03-06 22:06] LABS: Poikilocytosis 1+ (Not Present)
[2017-03-06 22:07] LABS: Hypochromasia Present (Not Present)
[2017-03-06 22:08] LABS: Polychromasia 1+ (Not Present)
[2017-03-06] MEDS ORDERED: Magnesium Sulfate 1 GM in D5% in Water 100 ML IVPB ONE (22:25)
[2017-03-06] MEDS ORDERED: MetroNIDAZOLE 500 MG/100 ML 500 MG/100 ML BAG IVPB ONE (22:44)
[2017-03-06] MEDS ORDERED: metroNIDAZOLE 500 MG TABLET PO ONE (22:48)
[2017-03-06] MEDS ORDERED: Vancomycin Oral Soln 250 MG/5 ML UDC PO ONE (22:52)
[2017-03-06] MEDS ORDERED: *HR* Heparin 5,000 UNIT/ML VIAL IVP ONE ×2 (23:22→23:45)
[2017-03-06] MEDS ORDERED: *HR* Heparin 5,000 UNIT/ML VIAL IVP PRN ×3 (23:22→23:50)
[2017-03-06 23:59] LABS: INR 1.2; Prothrombin Time 12.6 Seconds (9.4-12.1)
[2017-03-07 00:02] LABS: Activated Partial Thrombo Time 27.6 Seconds (26.0-36.0)
[2017-03-07] MEDS: Heparin 25,000 UNIT/500 ML D5W 25,000 UNIT/500 ML MLS IVC SCH ×2 (00:28→17:56)
--- NOTE | 2017-03-07 00:35 | Emergency Department Note ---
START Narrative - START START: I examined this patient and my medical decision-making was reviewed with the Resident Physician. I agree with the documented findings, disposition and treatment plan as described except to the extent set forth below. Patient is one and a half weeks postop, presents dehydrated with Clostridium difficile colitis and severe hypokalemia. IV potassium and magnesium provided. Her tachycardia was initially thought to be due to dehydration, however, she was also noted to be hypoxemic, which raised concern for the possibility of PE. CT did show pulmonary embolism with fairly significant clot burden. Troponin is elevated, BNP is elevated but stable compared to prior values. Procedure, emergency bedside echocardiogram: Procedure performed by me. Multiple images of the heart were obtained, and in the apical 4 chamber view, the right ventricle was noted to be larger than the left ventricle with paradoxical right to left bowing of the septum, and with a positive McConnel sign. This study is consistent with right heart strain. The patient has a submassive PE, and the more severe side of the spectrum. There is supporting systemic thrombolytics in this scenario is weak, especially with the recent evidence of complete lack of long-term benefit for patient's treated with systemic lytics. Catheter directed lytics are another option, and something that I believe needs to be considered in this patient. If systemic lytics were being considered, another concern in this patient is that she is recently postop, which would increase the risk of systemic treatment. This is been discussed with the hospitalist, who agrees. We have placed a call for VIR. Critical care time: I was directly primarily involved in the care of this patient for 45 minutes excluding procedures.
--- NOTE | 2017-03-07 02:05 | Internal Med History&Physical ---
Date of Encounter: 03/07/17 Time of Encounter: 02:05 Assessment and Plan (1) Pulmonary embolism Current visit: Yes Status: Acute Submassive PE given hemodynamically stable, elevated troponin (indicative of right heart strain/ myocardial necrosis) CTA reveals Central pulmonary emboli extending into lobar, segmental and subsegmental branches throughout both lungs. RV/LV ratio is 1.5. Echo pending to r/o RV overload This is her 2nd unprovoked PE. She took Xarelto until January for previous PE in July. Patient SpO2 95% on NRB mask with conversational dyspnea Case discussed with interventional radiology, no indication for thrombolytic therapy at this time given hemodynamically stable and recent GI bleed. Continue Heparin drip at this time Consider surgical or catheter directed embolectomy and transfer to tertiary center if she becomes hemodynamically unstable or has increased oxygen requirements Right IJ Central line placed in the ED Continue ICU monitoring Pulmonology consulted Qualifiers: Pulmonary embolism type: saddle Chronicity: acute Acute cor pulmonale presence: without acute cor pulmonale Qualified Code(s): I26.92 - Saddle embolus of pulmonary artery without acute cor pulmonale (2) C. difficile colitis Current visit: Yes Status: Acute Positive C. Diff toxin in stool CT abd/plv reveals Colitis, greatest of the sigmoid colon, infectious or inflammatory. C. diff precautions Flagyl PO TID for 14 days (3) Elevated troponin I level Current visit: Yes Status: Acute Submassive PE with elevated troponin (indicative of right heart strain/ myocardial necrosis) Initial troponin 0.62, repeat 0.46 EKG done at 1718 shows sinus tachycardia with a rate of [address] elevation. Patient does have ST depression in leads 1, aVL, V4, V5, V6. Crockett deviation. 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 She currently denies any further G.I. bleeding Type and screen complete Continue to monitor Qualifiers: Other causes of anemia: acute posthemorrhagic Qualified Code(s): D62 - Acute posthemorrhagic anemia (8) DM type 2 (diabetes mellitus, type 2) Current visit: Yes Status: Chronic Monitor blood glucose HGB a1c pending Continue SSI Qualifiers: Diabetes mellitus complication status: with unspecified complications Diabetes mellitus prison insulin use: without prison use Qualified Code( s): E11.8 - Type 2 diabetes mellitus with unspecified complications (9) Hypertension Current visit: No Status: Chronic Continue home meds Qualifiers: Hypertension type: essential hypertension Qualified Code(s): I10 - Essential (primary) hypertension (10) HLD (hyperlipidemia) Current visit: Yes Status: Chronic Continue home meds Qualifiers: Hyperlipidemia type: unspecified Qualified Code(s): E78.5 - Hyperlipidemia , unspecified (11) Hypothyroidism Current visit: Yes Status: Chronic Continue home meds Qualifiers: Hypothyroidism type: unspecified Qualified Code(s): E03.9 - Hypothyroidism , unspecified (12) Obesity (BMI 30-39.9) Current visit: Yes Status: Acute Diet modification and exercise (13) DVT prophylaxis Current visit: No Status: Acute Heparin Internal Medicine - H&P: HPI Chief complaint: N/V/D Admitted From: Home Plans for Post Hospital Care: Home History of present illness: Ms. Ludwig is a 62 year old female with a PMH of HTN, DM, PE in July, and Upper GI bleed with recent EGD/cauterization and banding on 02/23/17 in [place] that presented from home c/o N/V/D for the past 3 days, SOB, and subjective fever. Patient reports lower abd pain/ cramping and diarrhea. She reports stopping Xarelto in January and denies recent travel, leg edema, chills, CP, dysuria, tobacco use, or sick contacts. In the ED, work up revealed bilateral pulmonary embolism, elevated troponin, hypokalemia, and positive C. diff toxin in stool. Patient was started on Heparin drip and transferred to ICU. Past Med Surg Social Fam HX - Past Medical History Medical history: diabetes, GERD, hyperlipidemia, hypertension, pulmonary embolus , other Psychiatric history: depression - Past Surgical History Surgical History: appendectomy, cholecystectomy, hysterectomy, other (ECG with banding and cauterization) - Social History Smoking Status: Never smoker Smokeless Tobacco Status: No Alcohol use: none Drug use: none - Family History Father Living Status: Still Living Hx Family Endocrine Disorder: Yes Brother Living Status: Still Living Hx Family Endocrine Disorder: Yes Internal Medicine - H&P: Meds Atorvastatin [Lipitor] 40 mg PO HS 06/05/16 [History] Escitalopram [Lexapro] 20 mg PO DAILY 06/05/16 [History] Ezetimibe [Zetia] 10 mg PO DAILY 06/05/16 [History] Levothyroxine [Synthroid] 100 mcg PO QAM 06/05/16 [History] Omeprazole [PriLOSEC] 20 mg PO DAILY 06/05/16 [History] acetaZOLAMIDE [Acetazolamide] 500 mg PO BID 07/21/16 [History] Aspirin 81 mg PO DAILY tab.chew 07/26/16 [Rx] Cyanocobalamin (B-12) [Vitamin B12] 1,000 mcg PO DAILY #30 tablet 08/28/16 [Rx] Topiramate [Topamax] 50 mg PO BID 12/13/16 [History] Folic Acid 1 mg PO DAILY #30 tablet 02/21/17 [Rx] Losartan [Cozaar] 25 mg PO DAILY 03/06/17 [History] 3 Allergy/AdvReac Type Severity Reaction Status Date / Time Penicillins [PCN] Allergy Rash Verified 01/19/17 00:29 All Systems PM: A 10-system review of systems was performed and is negative for pertinent findings except as documented above in the HPI. - Constitutional Constitutional: fatigue, fever(s), weakness, no chills, no weight gain, no weight loss - EENT Eyes: no change in vision Nose, mouth and throat: no epistaxis, no nasal congestion, no sinus pressure - Cardiovascular Cardiovascular ROS IM: dyspnea, palpitations, no chest pain - Respiratory Respiratory: dyspnea, no cough, no hemoptysis, no chest congestion, no excessive phlegm production - Gastrointestinal Gastrointestinal: abdominal pain, cramping, diarrhea, nausea, vomiting, no melena - Genitourinary Genitourinary: no dysuria, no urinary frequency, no urinary urgency - Musculoskeletal Musculoskeletal ROS IM: no back pain, no limited range of motion, no numbness, no tingling - Integumentary Integumentary IM: no erythema, no rash - Neurological Neurological ROS: weakness, no confusion, no numbness, no tingling - Psychiatric Psychiatric: depression, no anxiety - Endocrine Endocrine IM: no polydipsia, no polyphagia, no polyuria - Hematologic/Lymphatic Hematologic/Lymphatic: no easy bleeding, no easy bruising - Constitutional Vitals: Temp Pulse Resp BP Pulse Ox 98.8 F 102 20 139/91 92 03/06/17 17:29 03/07/17 00:31 03/07/17 00:31 03/07/17 00:31 03/07/17 00:31 General appearance: Present: mild distress, A&O X 3, pleasant, obese, answers questions appropriately Exam: NRB mask with SpO2 95%, stops mid-sentence to breathe - Head Head exam: Present: atraumatic, normal inspection, normocephalic - Eye Eye exam: Present: EOMI, PERRL - ENT ENT exam: Present: mucous membranes moist, normal oropharynx Additional comments: On NRB mask - Neck Neck exam general surgery: Present: normal inspection, supple. Absent: lymphadenopathy, tenderness - Respiratory Respiratory exam: Present: CTAB. Absent: decreased breath sounds, rhonchi, wheezes - Cardiovascular Cardiovascular exam: Present: RRR, +S1, +S2. Absent: JVD - GI/Abdominal GI/Abdominal exam: Present: distended, normal bowel sounds, soft, tenderness ( lower abd). Absent: guarding - Additional comments: dillon - Extremities Exam Extremities exam: Present: full ROM, normal capillary refill, pedal edema (1+), warm - Back Exam Back exam: Present: normal inspection. Absent: tenderness - Neurological Exam Neurological exam: Present: alert, oriented X3, no focal deficits, strengths equal and symetr throughout. Absent: altered - Psychiatric Psychiatric exam: Present: flat affect, normal mood - Skin Skin exam: Present: dry, pallor, warm. Absent: rash Internal Med - H&P Results - Labs CBC & Chem 7: 03/07/17 03:34 03/07/17 03:34 - EKG Data -: EKG Interpreted by Myself Rate: tachycardia (EKG done at 1718 shows sinus tachycardia with a rate of [address] elevation. Patient does have ST depression in leads 1, aVL, V4, V5, V6. Crockett deviation.) - Impressions ITS Impressions Chest X-Ray 03/06/17 21:09 IMPRESSION: Right transjugular central venous catheter terminating in the superior vena cava. No pneumothorax or other acute process. D/ / Grady Ahn MD / Grady Ahn MD Interpreting Provider: Grady Ahn MD Abdomen/Pelvis CT 03/06/17 22:35 IMPRESSION: Colitis, greatest of the sigmoid colon, infectious or inflammatory. D/ / 03/07/2017 00:05:29 Kathrine Campbell Cha, MD / rupa Interpreting Provider: Kathrine Campbell Cha, MD Chest CTA 03/06/17 22:35 IMPRESSION: Central pulmonary emboli extending into lobar, segmental and subsegmental branches throughout both lungs. RV/LV ratio is 1.5. Findings were discussed with Rosmery Warren at 11:45 pm on 03/06/2017. D/ / Kathrine Campbell Cha, MD / Kathrine Campbell Cha, MD Interpreting Provider: Kathrine Campbell Cha, MD
[2017-03-07] MEDS ORDERED: *HR* Morphine 2 MG/ML SYRINGE IVP PRN ×2 (02:46→05:17)
[2017-03-07] MEDS ORDERED: Ondansetron 4 MG/2 ML VIAL IVP PRN (02:46)
[2017-03-07] MEDS ORDERED: Naloxone 0.4 MG/ML INJ IVP PRN (02:46)
--- NOTE | 2017-03-07 02:54 | Event Note ---
Date of Encounter: 03/07/17 Time of Encounter: 02:47 Patient seen and examined. Patient presents with 2 complains. 1st is tiredness and exercise intolerance. That is explained by sub massive pulmonary embolism. Patient is significantly hypoxic. She is on 6 L of oxygen nasally saturation is in the early 90s. This is her 2nd unprovoked PE. She did have a PE in July of this year without the clear etiology and she took anticoagulants for three-month and Xarelto was discontinued a couple months ago. Patient this time has had saddle thrombus with significant clot burden. 2nd complaint is diarrhea found to be due to seated and she will be started on Flagyl. 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 She mentioned a 3 Mulligan at that time was 6 inch required blood transfusion. She denies any further G.I. bleeding currently. Cases been discussed details with your physician will also discuss the case with interventional radiology. Patient was never hypotensive throughout your stay and therefore there is no solid indication for administering thrombolytic therapy, especially that she had a recent G.I. bleed requiring blood transfusion and the recent endoscopic procedure. Interventional radiology also did not feel that catheter directed intellectually will be feasible given the pattern of clots appearance. But to possibility will be anticoagulation versus local thrombolytics. Discussed with the patient prefers to be initiated currently on anticoagulant medications if no improvement in her symptoms and vitals and oxygen requirements will consider transfer to tertiary center. Currently she is on 6 L of nasal oxygen saturating around 90%. Prognosis guarded
[2017-03-07] MEDS ORDERED: Potassium Chloride 40 MEQ in D5% in 0.9% NACL 1,000 ML IVC SCH (03:00)
[2017-03-07] MEDS ORDERED: D5% in Water 1,000 ML IVC PRN (03:38)
[2017-03-07] MEDS ORDERED: Dextrose Gel 15 GM PO PRN ×2 (03:38)
[2017-03-07] MEDS ORDERED: *HR* Dextrose 50 % in Water (Syg) 50 ML SYRINGE IVP PRN (03:38)
[2017-03-07 04:04] LABS: Hematocrit 29.2 % (35.3-44.9)
[2017-03-07 04:06] LABS: Basophils % 0.4 %; Eosinophils # 0.1 K/mcL (0.0-0.6); Eosinophils % 0.5 %; Hemoglobin 8.3 g/dL (11.5-15.4); Immature Granulocytes % 1.9 % (0-4); Lymphocytes # 1.7 K/mcL (0.6-4.6); Lymphocytes % 15.1 %; Mean Corpuscular HGB Conc 28.4 g/dL (31.6-35.5); Mean Corpuscular Volume 70.4 fL (83.0-100.0); Mean Platelet Volume 10.5 fL (9.4-12.4); Neutrophils # 8.3 K/mcL (1.6-8.9); Nucleated Red Blood Cells 0.2 /100 WBC (0); Platelet Count 240 K/mcL (140-400); Red Blood Count 4.15 M/mcL (3.82-4.97); Red Cell Distribution Width 16.9 % (11.5-14.5); Segmented Neutrophils % 73.1 %
[2017-03-07 04:11] LABS: Alanine Aminotransferase 12 Units/L (0-55); Albumin 2.6 g/dL (3.5-5.0); Albumin/Globulin Ratio 0.7 (1.1-2.2); Alkaline Phosphatase 104 Units/L (38-126); Aspartate Amino Transferase 12 Units/L (5-34); BUN/Creatinine Ratio 18 (6-26); Bilirubin,Total 0.7 mg/dL (0.2-1.2); Blood Urea Nitrogen 14 mg/dL (7-20); Calcium 7.9 mg/dL (8.6-10.8); Carbon Dioxide 16 mEq/L (19-29); Chloride 110 mEq/L (98-109); Globulin 3.7 g/dL (2.4-3.5); Glucose 179 mg/dL (70-99); Magnesium 1.4 mg/dL (1.6-2.6); Osmolality,Calculated 289 (280-300); Potassium 2.6 mEq/L (3.5-4.5); Sodium 137 mEq/L (136-145); Total Protein 6.3 g/dL (6.0-8.3); eGFR For African Americans > 60 (> 60); eGFR For Non-African Americans > 60 (> 60)
[2017-03-07 04:15] LABS: Basophils # 0.1 K/mcL (0.0-0.2)
[2017-03-07] MEDS ORDERED: Potassium Chloride 40 MEQ/200 ML BAG IVPB PRN (04:16)
[2017-03-07] MEDS ORDERED: Magnesium Sulfate 2 GM in D5% in Water 100 ML IVPB ONE ×2 (04:23→05:21)
[2017-03-07 04:30] LABS: Anisocytosis 1+ (Not Present); Burr Cells 1+ (Not Present); Hypochromasia Present (Not Present); Large Platelets Present (Not Present); Microcytosis Present (Not Present); Platelet Estimate Normal (Normal); Poikilocytosis 2+ (Not Present); Schistocytes 1+ (Not Present)
[2017-03-07 05:05] LABS: Phosphorous 3.3 mg/dL (2.3-4.7)
[2017-03-07 05:07] LABS: Hemoglobin A1C 7.6 %
[2017-03-07] MEDS: Potassium Chloride 40 MEQ/200 ML BAG IVPB PRN ×2 (05:47→17:56)
[2017-03-07] MEDS: Famotidine 20 MG/2 ML VIAL IVP SCH ×2 (05:56→17:55)
[2017-03-07] MEDS: 0.9 % Sodium Chloride 1,000 ML IVC SCH ×2 (06:03→18:00)
[2017-03-07] MEDS: *HR* Heparin 5,000 UNIT/ML VIAL IVP PRN ×2 (06:57→20:32)
[2017-03-07 07:06] LABS: ABG Base Excess -6.6 mEq/L (-2.0 to 3.0); ABG HCO3 17 mEq/L (21-27); ABG Oxygen Saturation 95 % (95-98); ABG PCO2 28 mmHg (35-45); ABG PO2 76 mmHg (85-104); ABG TCO2 18 mEq/L (20-26)
[2017-03-07 07:07] LABS: Blood Gas Modality OXYMASK
[2017-03-07] MEDS ORDERED: Insulin LISPRO 300 UNITS/3 ML VIAL SQ SCH ×2 (08:00→21:00)
[2017-03-07] MEDS: Topiramate 25 MG TABLET PO SCH ×2 (08:24→19:55)
[2017-03-07] MEDS: Aspirin 81 MG TAB.CHEW PO SCH (08:24)
[2017-03-07] MEDS: Folic Acid 1 MG TABLET PO SCH (08:25)
--- NOTE | 2017-03-07 08:25 | Pulmonology Consult Note ---
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 difficile colitis Current Visit: Yes Status: Acute C. diff toxin positive drawn in the ED; she has mild disease as her WBC and Cr do not meet severe criteria She does have severe infection as her white count is mild and she has denied bowel movements overnight Will continue her on Flagyl 500 TID PO (3) Hypokalemia Current Visit: Yes Status: Acute Potassium slightly better this morning at 2.6 from 2.3; currently on potassium replacement protocol Will recheck BMP at noon today and replace as necessary (4) Anemia Current Visit: No Status: Acute She did have AVM 2 weeks ago that was cauterized Type and screen already collected and will transfuse depending on results of her repeat CBC at noon Qualifiers: Other causes of anemia: acute posthemorrhagic Qualified Code(s): D62 - Acute posthemorrhagic anemia (5) DM type 2 (diabetes mellitus, type 2) Current Visit: Yes Status: Chronic Holding home meds and continue on low dose SSI ACHS once she is able to resume her diet A1c checked this morning was 7.6 Qualifiers: Diabetes mellitus complication status: with unspecified complications Diabetes mellitus intermediate accountant insulin use: without longterm use Qualified Code( s): E11.8 - Type 2 diabetes mellitus with unspecified complications (6) Hypothyroidism Current Visit: Yes Status: Chronic TSH checked this July was WNL Will continue home Synthroid dose Qualifiers: Hypothyroidism type: unspecified Qualified Code(s): E03.9 - Hypothyroidism , unspecified (7) DVT prophylaxis Current Visit: No Status: Acute Continue heparin ggt History of Present Illness Consult date: 03/07/17 Requesting physician: Serg Dale Reason for consult: pulmonary embolism Chief complaint: PE, c diff History of present illness: Pt initially presented with diarrhea associated with lower abdominal pain and cramping. She was found to have C. diff and was started on Flagyl by the primary hospitalist. Of note, she has history of PE in July and was on Xarelto for several months until she had broken nose a couple months ago which caused her to stop her Xarelto. Denies any current issues with bleeding. The decision was made in the ED to order a CTA in setting of her history along with hypoxemia although she did not complain of shortness of breath. CTA revealed saddle embolism and she was put on oxymask and central line was placed for possible hemodynamic instability. Currently patient denies having any diarrhea overnight and does not have any shortness of breath, chest pain, nausea, vomiting. Past Med Surg Social Fam HX - Past Medical History Medical history: diabetes, GERD, hyperlipidemia, hypertension, pulmonary embolus , other Psychiatric history: depression - Past Surgical History Surgical History: appendectomy, cholecystectomy, hysterectomy, other (ECG with banding and cauterization) - Social History Smoking Status: Never smoker Smokeless Tobacco Status: No Alcohol use: none Drug use: none - Family History Father Living Status: Still Living Hx Family Endocrine Disorder: Yes Brother Living Status: Still Living Hx Family Endocrine Disorder: Yes Medications and Allergies Atorvastatin [Lipitor] 40 mg PO HS 06/05/16 [History] Escitalopram [Lexapro] 20 mg PO DAILY 06/05/16 [History] Ezetimibe [Zetia] 10 mg PO DAILY 06/05/16 [History] Levothyroxine [Synthroid] 100 mcg PO QAM 06/05/16 [History] Omeprazole [PriLOSEC] 20 mg PO DAILY 06/05/16 [History] acetaZOLAMIDE [Acetazolamide] 500 mg PO BID 07/21/16 [History] Aspirin 81 mg PO DAILY tab.chew 07/26/16 [Rx] Cyanocobalamin (B-12) [Vitamin B12] 1,000 mcg PO DAILY #30 tablet 08/28/16 [Rx] Topiramate [Topamax] 50 mg PO BID 12/13/16 [History] Folic Acid 1 mg PO DAILY #30 tablet 02/21/17 [Rx] Losartan [Cozaar] 25 mg PO DAILY 03/06/17 [History] Tizanidine HCl [Tizanidine HCl] 4 mg PO HS PRN 03/07/17 [History] 3 Allergy/AdvReac Type Severity Reaction Status Date / Time Penicillins [PCN] Allergy Rash Verified 01/19/17 00:29 All Systems: A 10-system review of systems was performed and is negative for pertinent findings except as documented above in the HPI. - Constitutional Constitutional: no fever(s), no headache(s), no weakness - EENT Eyes: no loss of vision Ears: no decreased hearing - Cardiovascular Cardiovascular: no chest pain, no dyspnea, no dyspnea on exertion, no edema, no irregular heart rhythm, no syncope - Respiratory Respiratory: no cough, no dyspnea, no hemoptysis - Gastrointestinal Gastrointestinal: diarrhea, no abdominal pain, no nausea, no vomiting - Genitourinary Genitourinary: no dysuria, no urinary frequency, no urinary incontinence - Musculoskeletal Musculoskeletal: no joint pain, no muscle weakness - Integumentary Integumentary: no erythema, no rash - Neurological Neurological: no frequent falls, no headache(s), no syncope, no weakness Physical Examination Vital Signs: Vital Signs, Last 4 Hours Temp Pulse Resp BP Pulse Ox 03/07/17 07:32 96.6 F L 03/07/17 06:00 85 19 87/59 93 03/07/17 05:00 87 15 101/77 94 General appearance: no acute distress Eyes: nonicteric ENT: oropharynx moist Neck: supple Effort: normal Inspection: normal Auscultation: bilateral: clear Percussion: bilateral: not dull Tactile fremitus: bilateral: normal Cardiovascular: regular rate and rhythm Gastrointestinal: normoactive bowel sounds, non-distended Integumentary: normal Extremities: no cyanosis, no edema, no clubbing Musculoskeletal: no deformities, ROM normal normal mental status, non-focal exam mood appropriate, affect normal Results - Laboratory Findings CBC and BMP: 03/07/17 03:34 03/07/17 03:34 ABG ABG pH 7.40 pH Units (7.32-7.45) 03/07/17 06:53 ABG pCO2 28 mmHg (35-45) L 03/07/17 06:53 ABG pO2 76 mmHg (85-104) L 03/07/17 06:53 ABG O2 Saturation 95 % (95-98) 03/07/17 06:53 PT/INR, D-dimer PT 12.6 Seconds (9.4-12.1) H 03/06/17 23:45 Abnormal lab findings: Abnormal lab results WBC 11.4 K/mcL (4.3-11.1) H 03/07/17 03:34 Hgb 8.3 g/dL (11.5-15.4) L 03/07/17 03:34 Hct 29.2 % (35.3-44.9) L 03/07/17 03:34 MCV 70.4 fL (83.0-100.0) L 03/07/17 03:34 MCH 20.0 pg (28.0-33.3) L 03/07/17 03:34 MCHC 28.4 g/dL (31.6-35.5) L 03/07/17 03:34 RDW 16.9 % (11.5-14.5) H 03/07/17 03:34 Nucleated RBCs/100 WBC 0.2 /100 WBC (0) H 03/07/17 03:34 Large Platelets Present (Not Present) A 03/07/17 03:34 Polychromasia 1+ (Not Present) A 03/06/17 21:15 Hypochromasia Present (Not Present) A 03/07/17 03:34 Poikilocytosis 2+ (Not Present) A 03/07/17 03:34 Anisocytosis 1+ (Not Present) A 03/07/17 03:34 Microcytosis Present (Not Present) A 03/07/17 03:34 [place] Cells 1+ (Not Present) A 03/07/17 03:34 Schistocytes 1+ (Not Present) A 03/07/17 03:34 PT 12.6 Seconds (9.4-12.1) H 03/06/17 23:45 APTT 54.0 Seconds (26.0-36.0) H D 03/07/17 06:25 ABG pCO2 28 mmHg (35-45) L 03/07/17 06:53 ABG pO2 76 mmHg (85-104) L 03/07/17 06:53 ABG HCO3 17 mEq/L (21-27) L 03/07/17 06:53 ABG Total CO2 18 mEq/L (20-26) L 03/07/17 06:53 ABG Base Excess -6.6 mEq/L (-2.0 to 3.0) L 03/07/17 06:53 Potassium 2.6 mEq/L (3.5-4.5) L 03/07/17 03:34 Chloride 110 mEq/L (98-109) H 03/07/17 03:34 Carbon Dioxide 16 mEq/L (19-29) L 03/07/17 03:34 Glucose 179 mg/dL (70-99) H 03/07/17 03:34 POC Glucose 201 (58-89) H 03/07/17 07:16 Hemoglobin A1c 7.6 % (-5.6) H 03/07/17 03:34 Calcium 7.9 mg/dL (8.6-10.8) L 03/07/17 03:34 Magnesium 1.4 mg/dL (1.6-2.6) L 03/07/17 03:34 Troponin I 0.46 ng/mL (0-0.03) H* 03/07/17 03:34 B-Natriuretic Peptide 346 pg/mL (0-100) H 03/06/17 23:45 Albumin 2.6 g/dL (3.5-5.0) L 03/07/17 03:34 Globulin 3.7 g/dL (2.4-3.5) H 03/07/17 03:34 Albumin/Globulin Ratio 0.7 (1.1-2.2) L 03/07/17 03:34 Ur Specific [place] 1.030 (1.010-1.025) H 03/06/17 21:31 Urine Protein 30 mg/dL (Neg-Trace) H 03/06/17 21:31 Urine Ketones Trace mg/dL (Negative) H 03/06/17 21:31 Urine Bilirubin Small (Negative) H 03/06/17 21:31 Urine Microscopic RBC 3-5 per hpf (0-3) H 03/06/17 21:31 Ur Squamous Epith Cells Many per lpf (None-Few) H 03/06/17 21:31 Stl C. diff Tox A/B PCR See reflex test (Not detect) A 03/06/17 19:16 - Clinical Findings Intake & Output: Intake & Output 03/06/17 03/07/17 03/07/17 23:59 07:59 15:59 Intake Total 1165 / 1365 Output Total 230 / 230 Balance 935 / 1135 Weight 105.6 kg Consult Discharge Plan - Plan Referrals: Francine Wood MD [Primary Care Provider] - <Arelis Delong S - Last Filed: 03/07/17 18:49> Date of Encounter: 03/07/17 All Systems: A 10-system review of systems was performed and is negative for pertinent findings except as documented above in the HPI. Physical Examination Vital Signs: Vital Signs, Last 4 Hours Temp Pulse Resp BP Pulse Ox 03/07/17 17:30 87 21 99/68 98 03/07/17 16:32 87 22 108/60 99 03/07/17 16:13 97.5 F L 03/07/17 15:30 82 23 100/75 97 Results - Laboratory Findings CBC and BMP: 03/07/17 12:40 03/07/17 12:40 ABG ABG pH 7.40 pH Units (7.32-7.45) 03/07/17 06:53 ABG pCO2 28 mmHg (35-45) L 03/07/17 06:53 ABG pO2 76 mmHg (85-104) L 03/07/17 06:53 ABG O2 Saturation 95 % (95-98) 03/07/17 06:53 PT/INR, D-dimer PT 12.6 Seconds (9.4-12.1) H 03/06/17 23:45 Abnormal lab findings: Abnormal lab results Hgb 7.6 g/dL (11.5-15.4) L 03/07/17 12:40 Hct 27.9 % (35.3-44.9) L 03/07/17 12:40 MCV 70.3 fL (83.0-100.0) L 03/07/17 12:40 MCH 19.1 pg (28.0-33.3) L 03/07/17 12:40 MCHC 27.2 g/dL (31.6-35.5) L 03/07/17 12:40 RDW 16.6 % (11.5-14.5) H 03/07/17 12:40 Nucleated RBCs/100 WBC 0.2 /100 WBC (0) H 03/07/17 12:40 Large Platelets Present (Not Present) A 03/07/17 03:34 Polychromasia 1+ (Not Present) A 03/06/17 21:15 Hypochromasia Present (Not Present) A 03/07/17 03:34 Poikilocytosis 2+ (Not Present) A 03/07/17 03:34 Anisocytosis 1+ (Not Present) A 03/07/17 03:34 Microcytosis Present (Not Present) A 03/07/17 03:34 [place] Cells 1+ (Not Present) A 03/07/17 03:34 Schistocytes 1+ (Not Present) A 03/07/17 03:34 PT 12.6 Seconds (9.4-12.1) H 03/06/17 23:45 APTT 66.6 Seconds (26.0-36.0) H 03/07/17 12:40 ABG pCO2 28 mmHg (35-45) L 03/07/17 06:53 ABG pO2 76 mmHg (85-104) L 03/07/17 06:53 ABG HCO3 17 mEq/L (21-27) L 03/07/17 06:53 ABG Total CO2 18 mEq/L (20-26) L 03/07/17 06:53 ABG Base Excess -6.6 mEq/L (-2.0 to 3.0) L 03/07/17 06:53 Potassium 3.0 mEq/L (3.5-4.5) L 03/07/17 12:40 Chloride 110 mEq/L (98-109) H 03/07/17 12:40 Glucose 144 mg/dL (70-99) H 03/07/17 12:40 POC Glucose 135 (58-89) H 03/07/17 16:09 Hemoglobin A1c 7.6 % (-5.6) H 03/07/17 03:34 Calcium 7.8 mg/dL (8.6-10.8) L 03/07/17 12:40 Troponin I 0.26 ng/mL (0-0.03) H* 03/07/17 12:40 B-Natriuretic Peptide 346 pg/mL (0-100) H 03/06/17 23:45 Albumin 2.6 g/dL (3.5-5.0) L 03/07/17 03:34 Globulin 3.7 g/dL (2.4-3.5) H 03/07/17 03:34 Albumin/Globulin Ratio 0.7 (1.1-2.2) L 03/07/17 03:34 Ur Specific [place] 1.030 (1.010-1.025) H 03/06/17 21:31 Urine Protein 30 mg/dL (Neg-Trace) H 03/06/17 21:31 Urine Ketones Trace mg/dL (Negative) H 03/06/17 21:31 Urine Bilirubin Small (Negative) H 03/06/17 21:31 Urine Microscopic RBC 3-5 per hpf (0-3) H 03/06/17 21:31 Ur Squamous Epith Cells Many per lpf (None-Few) H 03/06/17 21:31 Stl C. diff Tox A/B PCR See reflex test (Not detect) A 03/06/17 19:16 - Clinical Findings Intake & Output: Intake & Output 03/07/17 03/07/17 03/07/17 07:59 15:59 23:59 Intake Total 1365 / 1565 140 / 140 1135 / 1135 Output Total 230 / 230 100 / 100 50 / 50 Balance 1135 / 1335 40 / 40 1085 / 1085 Weight 105.6 kg - Attending Attestation I saw the patient with the resident agree with History and Physical exam findings. 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 Patient will not be candidate for Thrombolytics . If she bleeds on IV heparin because of her history intestinal AVM'S which was intervened recently will stop heparin and will get her an IVC filter. Nutrition/GI: Patient is on oral diet . GI prophylaxis Renal : Labs reviewed Heme onc : No acute issues will trend CBC for evidence of bleeding , to trend aPTT ID : C diff colitis will continue Po flagyl Musculo skeletal / skin issues Disposition : Critical Code status: Full Code
[2017-03-07] MEDS: Insulin LISPRO 300 UNITS/3 ML VIAL SQ SCH ×3 (08:26→16:58)
[2017-03-07] MEDS ORDERED: metroNIDAZOLE 500 MG TABLET PO SCH (09:00)
[2017-03-07] MEDS ORDERED: ZETIA 10 MG PO SCH (09:00)
[2017-03-07 13:07] LABS: Basophils % 0.4 %; Eosinophils # 0.1 K/mcL (0.0-0.6); Eosinophils % 1.1 %; Hematocrit 27.9 % (35.3-44.9); Hemoglobin 7.6 g/dL (11.5-15.4); Immature Granulocytes % 2.5 % (0-4); Lymphocytes # 1.9 K/mcL (0.6-4.6); Lymphocytes % 21.2 %; Mean Corpuscular HGB Conc 27.2 g/dL (31.6-35.5); Mean Corpuscular Hemoglobin 19.1 pg (28.0-33.3); Mean Corpuscular Volume 70.3 fL (83.0-100.0); Mean Platelet Volume 10.4 fL (9.4-12.4); Monocytes # 0.9 K/mcL (0.0-1.3); Monocytes % 9.3 %; Nucleated Red Blood Cells 0.2 /100 WBC (0); Platelet Count 226 K/mcL (140-400); Red Blood Count 3.97 M/mcL (3.82-4.97); Red Cell Distribution Width 16.6 % (11.5-14.5); Segmented Neutrophils % 65.5 %
[2017-03-07 14:49] LABS: BUN/Creatinine Ratio 16 (6-26); Blood Urea Nitrogen 12 mg/dL (7-20); Calcium 7.8 mg/dL (8.6-10.8); Carbon Dioxide 19 mEq/L (19-29); Chloride 110 mEq/L (98-109); Glucose 144 mg/dL (70-99); Magnesium 1.9 mg/dL (1.6-2.6); Osmolality,Calculated 284 (280-300); Sodium 136 mEq/L (136-145); eGFR For African Americans > 60 (> 60); eGFR For Non-African Americans > 60 (> 60)
[2017-03-07] MEDS: metroNIDAZOLE 500 MG TABLET PO SCH ×2 (16:19→19:56)
--- NOTE | 2017-03-07 18:50 | Electrocardiograph Report ---
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
[2017-03-07 20:17] LABS: BUN/Creatinine Ratio 14 (6-26); Blood Urea Nitrogen 11 mg/dL (7-20); Calcium 7.9 mg/dL (8.6-10.8); Carbon Dioxide 16 mEq/L (19-29); Chloride 111 mEq/L (98-109); Glucose 207 mg/dL (70-99); Osmolality,Calculated 287 (280-300); Potassium 3.8 mEq/L (3.5-4.5); Sodium 136 mEq/L (136-145); eGFR For African Americans > 60 (> 60); eGFR For Non-African Americans > 60 (> 60)
[2017-03-07] MEDS ORDERED: Insulin DETEMIR 100 UNIT/ML X5UNITS SQ SCH (21:00)
[2017-03-08 04:47] LABS: Basophils # 0.1 K/mcL (0.0-0.2); Basophils % 0.6 %; Eosinophils # 0.2 K/mcL (0.0-0.6); Eosinophils % 1.9 %; Hematocrit 27.4 % (35.3-44.9); Hemoglobin 7.5 g/dL (11.5-15.4); Lymphocytes # 2.1 K/mcL (0.6-4.6); Lymphocytes % 20.7 %; Mean Corpuscular HGB Conc 27.4 g/dL (31.6-35.5); Mean Corpuscular Hemoglobin 19.5 pg (28.0-33.3); Mean Corpuscular Volume 71.2 fL (83.0-100.0); Mean Platelet Volume 10.6 fL (9.4-12.4); Monocytes # 0.8 K/mcL (0.0-1.3); Monocytes % 8.1 %; Neutrophils # 6.6 K/mcL (1.6-8.9); Nucleated Red Blood Cells 0.4 /100 WBC (0); Platelet Count 247 K/mcL (140-400); Red Blood Count 3.85 M/mcL (3.82-4.97); Red Cell Distribution Width 16.8 % (11.5-14.5); Segmented Neutrophils % 64.7 %
[2017-03-08 04:58] LABS: BUN/Creatinine Ratio 12 (6-26); Blood Urea Nitrogen 9 mg/dL (7-20); Carbon Dioxide 16 mEq/L (19-29); Chloride 113 mEq/L (98-109); Glucose 160 mg/dL (70-99); Osmolality,Calculated 288 (280-300); Potassium 3.2 mEq/L (3.5-4.5); Sodium 138 mEq/L (136-145); eGFR For African Americans > 60 (> 60); eGFR For Non-African Americans > 60 (> 60)
[2017-03-08 05:22] LABS: Burr Cells 1+ (Not Present)
[2017-03-08 05:23] LABS: Hypochromasia Present (Not Present); Polychromasia 1+ (Not Present)
[2017-03-08] MEDS: Potassium Chloride 40 MEQ/200 ML BAG IVPB PRN (05:56)
[2017-03-08] MEDS: Famotidine 20 MG/2 ML VIAL IVP SCH (05:56)
[2017-03-08] MEDS: 0.9 % Sodium Chloride 1,000 ML IVC SCH (05:56)
--- NOTE | 2017-03-08 08:28 | Pulmonology Progress Note ---
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 Cole and will need to follow up with hem/onc as outpatient Qualifiers: Pulmonary embolism type: saddle Chronicity: acute Acute cor pulmonale presence: without acute cor pulmonale Qualified Code(s): I26.92 - Saddle embolus of pulmonary artery without acute cor pulmonale (2) C. difficile colitis Current Visit: Yes Status: Acute Patient still complaining of 3 loose episodes of stool overnight but does not meet any criteria for severe infection Continue on Flagyl 500 TID (3) Hypokalemia Current Visit: Yes Status: Acute Likely secondary to potassium She has received multiple doses of replacements daily Will continue to monitor and continue replacement protocol (4) Anemia Current Visit: No Status: Chronic Likely secondary to GIB/iron deficiency Will obtain iron panel with ferritin and start on BID Iron tablets Hb has been stable; she has been type and screened in case she needs transfusion Qualifiers: Other causes of anemia: acute posthemorrhagic Qualified Code(s): D62 - Acute posthemorrhagic anemia (5) DM type 2 (diabetes mellitus, type 2) Current Visit: Yes Status: Chronic Holding home meds and continue on low dose SSI ACHS as she is currently on ADA diet A1c checked this visit was 7.6 Qualifiers: Diabetes mellitus complication status: with unspecified complications Diabetes mellitus senior care insulin use: without ad terminal makeup operator use Qualified Code( s): E11.8 - Type 2 diabetes mellitus with unspecified complications (6) Hypothyroidism Current Visit: Yes Status: Chronic TSH checked this July was WNL Will continue home Synthroid dose Qualifiers: Hypothyroidism type: unspecified Qualified Code(s): E03.9 - Hypothyroidism , unspecified (7) Physical deconditioning Current Visit: Yes Status: Chronic She reports weakness and difficulty walking around and is worried how much assistance she will need at home Will consult PT/OT/SS for discharge planning; she may need home health vs. rehab upon discharge (8) DVT prophylaxis Current Visit: No Status: Acute Heparin ggt stopped, will resume Xarelto Subjective Principal diagnosis: pulmonary embolism, c diff Interval history: Pt seen and examined. She has no issues with breathing but does admit to having about 3 episodes of diarrhea overnight. No issues with bleeding, chest pain, nausea, vomiting, but does have cramps where her colitis is. Objective PUL Vital signs: Last Vital Signs Temp 98.4 F 03/08/17 07:29 Pulse 89 03/08/17 06:00 Resp 17 03/08/17 06:00 BP 113/73 03/08/17 06:00 Pulse Ox 94 03/08/17 06:00 General appearance: no acute distress, alert Eyes: nonicteric ENT: oropharynx moist Neck: supple Effort: normal Auscultation: bilateral: clear Percussion: bilateral: not dull Tactile fremitus: bilateral: normal Cardiovascular: regular rate and rhythm Gastrointestinal: normoactive bowel sounds, non-distended Integumentary: normal Extremities: no cyanosis, no clubbing, edema (trace) Musculoskeletal: no deformities, ROM normal normal mental status, non-focal exam mood appropriate, affect normal Results - Laboratory Findings CBC and BMP: 03/08/17 04:36 03/08/17 04:36 ABG ABG pH 7.40 pH Units (7.32-7.45) 03/07/17 06:53 ABG pCO2 28 mmHg (35-45) L 03/07/17 06:53 ABG pO2 76 mmHg (85-104) L 03/07/17 06:53 ABG O2 Saturation 95 % (95-98) 03/07/17 06:53 PT/INR, D-dimer PT 12.6 Seconds (9.4-12.1) H 03/06/17 23:45 Abnormal lab findings: Abnormal lab results Hgb 7.5 g/dL (11.5-15.4) L 03/08/17 04:36 Hct 27.4 % (35.3-44.9) L 03/08/17 04:36 MCV 71.2 fL (83.0-100.0) L 03/08/17 04:36 MCH 19.5 pg (28.0-33.3) L 03/08/17 04:36 MCHC 27.4 g/dL (31.6-35.5) L 03/08/17 04:36 RDW 16.8 % (11.5-14.5) H 03/08/17 04:36 Nucleated RBCs/100 WBC 0.4 /100 WBC (0) H 03/08/17 04:36 Large Platelets Present (Not Present) A 03/07/17 03:34 Polychromasia 1+ (Not Present) A 03/08/17 04:36 Hypochromasia Present (Not Present) A 03/08/17 04:36 Poikilocytosis 2+ (Not Present) A 03/07/17 03:34 Anisocytosis 1+ (Not Present) A 03/07/17 03:34 Microcytosis Present (Not Present) A 03/07/17 03:34 Kingsley Cells 1+ (Not Present) A 03/08/17 04:36 Schistocytes 1+ (Not Present) A 03/07/17 03:34 PT 12.6 Seconds (9.4-12.1) H 03/06/17 23:45 APTT 97.2 Seconds (26.0-36.0) H D 03/08/17 02:25 ABG pCO2 28 mmHg (35-45) L 03/07/17 06:53 ABG pO2 76 mmHg (85-104) L 03/07/17 06:53 ABG HCO3 17 mEq/L (21-27) L 03/07/17 06:53 ABG Total CO2 18 mEq/L (20-26) L 03/07/17 06:53 ABG Base Excess -6.6 mEq/L (-2.0 to 3.0) L 03/07/17 06:53 Potassium 3.2 mEq/L (3.5-4.5) L 03/08/17 04:36 Chloride 113 mEq/L (98-109) H 03/08/17 04:36 Carbon Dioxide 16 mEq/L (19-29) L 03/08/17 04:36 Glucose 160 mg/dL (70-99) H 03/08/17 04:36 POC Glucose 150 (58-89) H 03/08/17 07:24 Hemoglobin A1c 7.6 % (-5.6) H 03/07/17 03:34 Calcium 8.0 mg/dL (8.6-10.8) L 03/08/17 04:36 Troponin I 0.26 ng/mL (0-0.03) H* 03/07/17 12:40 B-Natriuretic Peptide 346 pg/mL (0-100) H 03/06/17 23:45 Albumin 2.6 g/dL (3.5-5.0) L 03/07/17 03:34 Globulin 3.7 g/dL (2.4-3.5) H 03/07/17 03:34 Albumin/Globulin Ratio 0.7 (1.1-2.2) L 03/07/17 03:34 Ur Specific Garwin 1.030 (1.010-1.025) H 03/06/17 21:31 Urine Protein 30 mg/dL (Neg-Trace) H 03/06/17 21:31 Urine Ketones Trace mg/dL (Negative) H 03/06/17 21:31 Urine Bilirubin Small (Negative) H 03/06/17 21:31 Urine Microscopic RBC 3-5 per hpf (0-3) H 03/06/17 21:31 Ur Squamous Epith Cells Many per lpf (None-Few) H 03/06/17 21:31 Stl C. diff Tox A/B PCR See reflex test (Not detect) A 03/06/17 19:16 - Clinical Findings Intake & Output: Intake & Output 03/07/17 03/08/17 03/08/17 23:59 07:59 15:59 Intake Total 2293 / 2293 1204 / 1204 Output Total 200 / 200 175 / 175 Balance 2092 / 209 1029 / 1029 Weight 108.5 kg Consult Discharge Plan - Plan Referrals: Francine Wood MD [Primary Care Provider] - <Arelis Delong - Last Filed: 03/08/17 17:47> Date of Encounter: 03/08/17 Objective PUL Vital signs: Last Vital Signs Temp 98.5 F 03/08/17 16:29 Pulse 86 03/08/17 16:29 Resp 18 03/08/17 16:29 BP 107/69 03/08/17 16:29 Pulse Ox 94 03/08/17 16:29 Results - Laboratory Findings CBC and BMP: 03/08/17 04:36 03/08/17 04:36 ABG ABG pH 7.40 pH Units (7.32-7.45) 03/07/17 06:53 ABG pCO2 28 mmHg (35-45) L 03/07/17 06:53 ABG pO2 76 mmHg (85-104) L 03/07/17 06:53 ABG O2 Saturation 95 % (95-98) 03/07/17 06:53 PT/INR, D-dimer PT 12.6 Seconds (9.4-12.1) H 03/06/17 23:45 Abnormal lab findings: Abnormal lab results Hgb 7.5 g/dL (11.5-15.4) L 03/08/17 04:36 Hct 27.4 % (35.3-44.9) L 03/08/17 04:36 MCV 71.2 fL (83.0-100.0) L 03/08/17 04:36 MCH 19.5 pg (28.0-33.3) L 03/08/17 04:36 MCHC 27.4 g/dL (31.6-35.5) L 03/08/17 04:36 RDW 16.8 % (11.5-14.5) H 03/08/17 04:36 Nucleated RBCs/100 WBC 0.4 /100 WBC (0) H 03/08/17 04:36 Large Platelets Present (Not Present) A 03/07/17 03:34 Polychromasia 1+ (Not Present) A 03/08/17 04:36 Hypochromasia Present (Not Present) A 03/08/17 04:36 Poikilocytosis 2+ (Not Present) A 03/07/17 03:34 Anisocytosis 1+ (Not Present) A 03/07/17 03:34 Microcytosis Present (Not Present) A 03/07/17 03:34 Kingsley Cells 1+ (Not Present) A 03/08/17 04:36 Schistocytes 1+ (Not Present) A 03/07/17 03:34 PT 12.6 Seconds (9.4-12.1) H 03/06/17 23:45 APTT 97.2 Seconds (26.0-36.0) H D 03/08/17 02:25 ABG pCO2 28 mmHg (35-45) L 03/07/17 06:53 ABG pO2 76 mmHg (85-104) L 03/07/17 06:53 ABG HCO3 17 mEq/L (21-27) L 03/07/17 06:53 ABG Total CO2 18 mEq/L (20-26) L 03/07/17 06:53 ABG Base Excess -6.6 mEq/L (-2.0 to 3.0) L 03/07/17 06:53 Potassium 3.2 mEq/L (3.5-4.5) L 03/08/17 04:36 Chloride 113 mEq/L (98-109) H 03/08/17 04:36 Carbon Dioxide 16 mEq/L (19-29) L 03/08/17 04:36 Glucose 160 mg/dL (70-99) H 03/08/17 04:36 POC Glucose 202 (58-89) H 03/08/17 16:33 Hemoglobin A1c 7.6 % (-5.6) H 03/07/17 03:34 Calcium 8.0 mg/dL (8.6-10.8) L 03/08/17 04:36 Iron 12 mcg/dL (50-170) L 03/08/17 09:40 % Saturation 4 % (15-50) L 03/08/17 09:40 Troponin I 0.14 ng/mL (0-0.03) H* 03/08/17 04:36 B-Natriuretic Peptide 346 pg/mL (0-100) H 03/06/17 23:45 Albumin 2.6 g/dL (3.5-5.0) L 03/07/17 03:34 Globulin 3.7 g/dL (2.4-3.5) H 03/07/17 03:34 Albumin/Globulin Ratio 0.7 (1.1-2.2) L 03/07/17 03:34 Ur Specific Garwin 1.030 (1.010-1.025) H 03/06/17 21:31 Urine Protein 30 mg/dL (Neg-Trace) H 03/06/17 21:31 Urine Ketones Trace mg/dL (Negative) H 03/06/17 21:31 Urine Bilirubin Small (Negative) H 03/06/17 21:31 Urine Microscopic RBC 3-5 per hpf (0-3) H 03/06/17 21:31 Ur Squamous Epith Cells Many per lpf (None-Few) H 03/06/17 21:31 Stl C. diff Tox A/B PCR See reflex test (Not detect) A 03/06/17 19:16 - Clinical Findings Intake & Output: Intake & Output 03/08/17 03/08/17 03/08/17 07:59 15:59 23:59 Intake Total 1204 / 1204 178 / 178 0 / 0 Output Total 175 / 175 0 / 0 Balance 1029 / 1029 178 / 178 0 / 0 Weight 108.5 kg - Attending Attestation I saw the patient with the resident agree with History and Physical exam findings. Labs and Radiology were reviewed Patient is on Nasal cannula ANESTHETIST: Patient is conscious oriented x3 following commands NECK : No JVD appreciated Pulmonary : Patient is hypoxic due to sub massive PE with no saddle embolus but has clots bilateral in segmental branches.Patient doesnt complain of chest pain or shortness of breadth , patient oxygen requirements significantly came down . Will stop IV heparin and start on Xarelto with Xarelto no bridging needed . Cardiac : Patient is hemodynamically stable evidence of RV strain with elevated troponin and BNP Nutrition/GI: Patient is on oral diet . GI prophylaxis Renal : Labs reviewed Heme onc : No acute issues HB stable patient has previous history of AVM malformation which was intervened in the earlier part of this month to monitor for bleeding on Xarelto ID : C diff colitis will continue Po flagyl Musculo skeletal / skin issues Disposition : Patient is stable for telemetry floor . Patient should follow up with pulmonary in 6-8 weeks Code status: Full Code
[2017-03-08] MEDS: Folic Acid 1 MG TABLET PO SCH (08:33)
[2017-03-08] MEDS: Aspirin 81 MG TAB.CHEW PO SCH (08:33)
[2017-03-08] MEDS: metroNIDAZOLE 500 MG TABLET PO SCH ×3 (08:34→20:03)
[2017-03-08] MEDS: Insulin LISPRO 300 UNITS/3 ML VIAL SQ SCH ×4 (08:39→21:34)
[2017-03-08] MEDS ORDERED: *HR* Rivaroxaban 15 MG TABLET PO SCH (09:00)
[2017-03-08] MEDS ORDERED: D5% in Water 1,000 ML IVC PRN (09:33)
[2017-03-08] MEDS ORDERED: *HR* Dextrose 50 % in Water (Syg) 50 ML SYRINGE IVP PRN (09:33)
[2017-03-08] MEDS ORDERED: Naloxone 0.4 MG/ML INJ IVP PRN (09:33)
[2017-03-08] MEDS ORDERED: Dextrose Gel 15 GM PO PRN ×2 (09:33)
[2017-03-08] MEDS ORDERED: Potassium Chloride 40 MEQ/200 ML BAG IVPB PRN (09:33)
[2017-03-08] MEDS ORDERED: Ondansetron 4 MG/2 ML VIAL IVP PRN (09:33)
[2017-03-08] MEDS ORDERED: *HR* Morphine 2 MG/ML SYRINGE IVP PRN (09:33)
[2017-03-08 10:17] LABS: % Iron Saturation 4 % (15-50); Iron 12 mcg/dL (50-170); Transferrin 201 mg/dL (180-382)
[2017-03-08 10:38] LABS: Ferritin 15 ng/ml (5-204)
[2017-03-08] MEDS: Acetaminophen 325 MG TABLET PO PRN ×2 (13:55→21:42)
[2017-03-08] MEDS: *HR* Rivaroxaban 15 MG TABLET PO SCH (16:58)
[2017-03-08] MEDS: Famotidine 20 MG TABLET PO SCH (16:58)
[2017-03-08] MEDS ORDERED: Famotidine 20 MG/2 ML VIAL IVP SCH (18:00)
[2017-03-08] MEDS: Topiramate 25 MG TABLET PO SCH (20:03)
[2017-03-09 04:19] LABS: Mean Corpuscular Volume 72.8 fL (83.0-100.0); Red Cell Distribution Width 17.1 % (11.5-14.5)
[2017-03-09 04:21] LABS: Basophils % 0.5 %; Eosinophils # 0.2 K/mcL (0.0-0.6); Eosinophils % 2.4 %; Hematocrit 28.3 % (35.3-44.9); Hemoglobin 7.4 g/dL (11.5-15.4); Immature Granulocytes % 4.2 % (0-4); Lymphocytes # 1.7 K/mcL (0.6-4.6); Lymphocytes % 20.3 %; Mean Corpuscular HGB Conc 26.1 g/dL (31.6-35.5); Mean Platelet Volume 11.9 fL (9.4-12.4); Monocytes # 0.6 K/mcL (0.0-1.3); Monocytes % 6.8 %; Neutrophils # 5.4 K/mcL (1.6-8.9); Nucleated Red Blood Cells 0.7 /100 WBC (0); Platelet Count 216 K/mcL (140-400); Red Blood Count 3.89 M/mcL (3.82-4.97); Segmented Neutrophils % 65.8 %
[2017-03-09 04:36] LABS: BUN/Creatinine Ratio 11 (6-26); Blood Urea Nitrogen 9 mg/dL (7-20); Calcium 8.2 mg/dL (8.6-10.8); Carbon Dioxide 13 mEq/L (19-29); Chloride 113 mEq/L (98-109); Glucose 141 mg/dL (70-99); Osmolality,Calculated 283 (280-300); Potassium 3.9 mEq/L (3.5-4.5); Sodium 136 mEq/L (136-145); eGFR For African Americans > 60 (> 60); eGFR For Non-African Americans > 60 (> 60)
[2017-03-09 05:17] LABS: Anisocytosis 1+ (Not Present); Hypochromasia Present (Not Present); Microcytosis Present (Not Present); Poikilocytosis 1+ (Not Present)
[2017-03-09 05:18] LABS: Platelet Estimate Normal (Normal)
[2017-03-09] MEDS: Famotidine 20 MG TABLET PO SCH ×2 (08:34→14:36)
[2017-03-09] MEDS: metroNIDAZOLE 500 MG TABLET PO SCH ×3 (08:35→20:56)
[2017-03-09] MEDS: Aspirin 81 MG TAB.CHEW PO SCH (08:35)
[2017-03-09] MEDS: *HR* Rivaroxaban 15 MG TABLET PO SCH ×2 (08:36→17:20)
[2017-03-09] MEDS: Topiramate 25 MG TABLET PO SCH ×2 (08:36→20:56)
[2017-03-09] MEDS: Folic Acid 1 MG TABLET PO SCH (08:36)
[2017-03-09] MEDS: Insulin LISPRO 300 UNITS/3 ML VIAL SQ SCH ×4 (08:37→20:58)
[2017-03-09] MEDS: Acetaminophen 325 MG TABLET PO PRN ×2 (14:39→20:56)
--- NOTE | 2017-03-09 16:18 | Internal Med Progress Note ---
Date of Encounter: 03/09/17 Time of Encounter: 16:16 - Assessment and plan (1) C. difficile diarrhea Current Visit: Yes Status: Acute (2) Pulmonary embolism Current Visit: Yes Status: Acute Qualifiers: Pulmonary embolism type: saddle Chronicity: acute Acute cor pulmonale presence: without acute cor pulmonale Qualified Code(s): I26.92 - Saddle embolus of pulmonary artery without acute cor pulmonale (3) DVT, popliteal, acute Current Visit: Yes Status: Acute Qualifiers: Laterality: left Qualified Code(s): I82.432 - Acute embolism and thrombosis of left popliteal vein (4) C. difficile colitis Current Visit: Yes Status: Acute (5) Hypokalemia Current Visit: Yes Status: Acute (6) DM type 2 (diabetes mellitus, type 2) Current Visit: Yes Status: Chronic Qualifiers: Diabetes mellitus complication status: with unspecified complications Diabetes mellitus jail insulin use: without jail use Qualified Code( s): E11.8 - Type 2 diabetes mellitus with unspecified complications (7) HLD (hyperlipidemia) Current Visit: Yes Status: Chronic Qualifiers: Hyperlipidemia type: unspecified Qualified Code(s): E78.5 - Hyperlipidemia , unspecified (8) Hypothyroidism Current Visit: Yes Status: Chronic Qualifiers: Hypothyroidism type: unspecified Qualified Code(s): E03.9 - Hypothyroidism , unspecified (9) B12 deficiency Current Visit: Yes Status: Acute (10) BROOKE (iron deficiency anemia) Current Visit: Yes Status: Acute Qualifiers: Iron deficiency anemia type: unspecified iron deficiency Qualified Code(s) : D50.9 - Iron deficiency anemia, unspecified (11) Diabetes mellitus Current Visit: Yes Status: Acute Qualifiers: Diabetes mellitus type: type 2 Diabetes mellitus complication status: without complication Diabetes mellitus terminal superintendent insulin use: without jail use Qualified Code(s): E11.9 - Type 2 diabetes mellitus without complications (12) Hypertension Current Visit: Yes Status: Chronic Qualifiers: Hypertension type: essential hypertension Qualified Code(s): I10 - Essential (primary) hypertension (13) Obesity (BMI 30-39.9) Current Visit: Yes Status: Acute - Subjective Interval history: Chavez Abad is a 62-year-old female transferred from intensive care unit. She was admitted for PE/DVT. Also has recent history of GI bleed and AVMs. During this hospitalizations she has developed C. difficile diarrhea also. Heparin was turned off and she plans to be Xarelto. She is on Flagyl. No diarrhea or movement this morning. Hemoglobin seems a stable. Continue continue checking CBC CMP. If remains stable she can be discharged. - Constitutional Vitals: Temp Pulse Resp BP Pulse Ox 97.6 F 77 18 106/68 97 03/09/17 11:04 03/09/17 11:04 03/09/17 11:04 03/09/17 11:04 03/09/17 11:04 General appearance: Present: mild distress, A&O X 3, pleasant, obese, answers questions appropriately - Head Head exam: Present: atraumatic, normocephalic - Eye Eye exam: Present: PERRL, conjuntiva pink, sclera anicteric Pupils: Present: PERRL - Neck Neck exam general surgery: Present: supple, trachea midline. Absent: lymphadenopathy - Respiratory Respiratory exam: Present: CTAB. Absent: accessory muscle use, rales, rhonchi, wheezes - Cardiovascular Cardiovascular exam: Present: RRR, +S1, +S2. Absent: diastolic murmur, gallop, rubs, systolic murmur - GI/Abdominal GI/Abdominal exam: Present: normal bowel sounds, soft, no peritoneal signs. Absent: distended, tenderness - Extremities Exam Extremities exam: Present: warm, radial pulses palpable and symmetrical. Absent : calf tenderness, cyanotic, pedal edema - Neurological Exam Neurological exam: Present: CN II-XII intact, oriented X3, no focal deficits. Absent: pronater drift, facial droop, speech deficit - Skin Skin exam: Present: dry, intact Internal Medicine: Result - Labs CBC & Chem 7: 03/09/17 03:30 03/09/17 03:30 Labs: Short CBC 03/09/17 Range/Units 03:30 WBC 8.2 (4.3-11.1) K/mcL Hgb 7.4 L (11.5-15.4) g/dL Hct 28.3 L (35.3-44.9) % Plt Count 216 (140-400) K/mcL Neutrophils # 5.4 (1.6-8.9) K/mcL BMP 03/09/17 03:30 Sodium 136 Potassium 3.9 Chloride 113 H Carbon Dioxide 13 L BUN 9 Creatinine 0.80 Glucose 141 H Calcium 8.2 L - ABG Interpretation ABG results: ABG ABG pH 7.40 pH Units (7.32-7.45) 03/07/17 06:53 ABG pCO2 28 mmHg (35-45) L 03/07/17 06:53 ABG pO2 76 mmHg (85-104) L 03/07/17 06:53 ABG O2 Saturation 95 % (95-98) 03/07/17 06:53 PT/INR, D-dimer PT 12.6 Seconds (9.4-12.1) H 03/06/17 23:45 Consult Discharge Plan - Plan Referrals: Francine Wood MD [Primary Care Provider] - 03/19/17 1:45 pm (Please follow up as schedule...)
[2017-03-10] MEDS: Insulin LISPRO 300 UNITS/3 ML VIAL SQ SCH ×2 (08:06→11:59)
[2017-03-10] MEDS: Aspirin 81 MG TAB.CHEW PO SCH (08:06)
[2017-03-10] MEDS: metroNIDAZOLE 500 MG TABLET PO SCH (08:06)
[2017-03-10] MEDS: Folic Acid 1 MG TABLET PO SCH (08:06)
[2017-03-10] MEDS: Famotidine 20 MG TABLET PO SCH (08:06)
[2017-03-10] MEDS: Topiramate 25 MG TABLET PO SCH (08:06)
[2017-03-10] MEDS: *HR* Rivaroxaban 15 MG TABLET PO SCH (08:06)
[2017-03-10] MEDS ORDERED: FLUARIX QUAD 2017-18 36MOS UP/PF 0.5 ML SYRINGE IM ONE (09:49)
[2017-03-10] MEDS ORDERED: Ferumoxytol 510 MG in 0.9 % Sodium Chloride 100 ML IVPB ONE (10:36)
[2017-03-10 12:03] VITALS: BP 112/69
--- NOTE | 2017-03-10 14:28 | Discharge Summary ---
Date of Encounter: 03/10/17 Time of Encounter: 14:23 - Discharge Diagnosis (1) Pulmonary embolism Priority: Primary Status: Acute Qualifiers: Pulmonary embolism type: saddle Chronicity: acute Acute cor pulmonale presence: without acute cor pulmonale Qualified Code(s): I26.92 - Saddle embolus of pulmonary artery without acute cor pulmonale (2) C. difficile diarrhea Priority: Secondary Status: Acute (3) C. difficile colitis Priority: Secondary Status: Acute (4) Hypokalemia Priority: Secondary Status: Acute (5) DM type 2 (diabetes mellitus, type 2) Priority: Secondary Status: Chronic Qualifiers: Diabetes mellitus complication status: with unspecified complications Diabetes mellitus residential insulin use: without terminal operations supervisor use Qualified Code( s): E11.8 - Type 2 diabetes mellitus with unspecified complications (6) HLD (hyperlipidemia) Priority: Secondary Status: Chronic Qualifiers: Hyperlipidemia type: unspecified Qualified Code(s): E78.5 - Hyperlipidemia , unspecified (7) Hypothyroidism Priority: Secondary Status: Chronic Qualifiers: Hypothyroidism type: unspecified Qualified Code(s): E03.9 - Hypothyroidism , unspecified (8) B12 deficiency Priority: Secondary Status: Acute (9) BROOKE (iron deficiency anemia) Priority: Secondary Status: Acute Qualifiers: Iron deficiency anemia type: unspecified iron deficiency Qualified Code(s) : D50.9 - Iron deficiency anemia, unspecified (10) Diabetes mellitus Priority: Secondary Status: Acute Qualifiers: Diabetes mellitus type: type 2 Diabetes mellitus complication status: without complication Diabetes mellitus residential insulin use: without terminal operations supervisor use Qualified Code(s): E11.9 - Type 2 diabetes mellitus without complications (11) Hypertension Priority: Secondary Status: Chronic Qualifiers: Hypertension type: essential hypertension Qualified Code(s): I10 - Essential (primary) hypertension (12) Obesity (BMI 30-39.9) Priority: Secondary Status: Acute - Discharge Medications Prescriptions: Ferrous Sulfate 325 mg PO BIDWM #60 tablet metroNIDAZOLE [Flagyl] 500 mg PO TID #21 tablet Home Medications: Atorvastatin [Lipitor] 40 mg PO HS 06/05/16 [History] Escitalopram [Lexapro] 20 mg PO DAILY 06/05/16 [History] Ezetimibe [Zetia] 10 mg PO DAILY 06/05/16 [History] Levothyroxine [Synthroid] 100 mcg PO QAM 12/26/16 [History] Omeprazole [PriLOSEC] 20 mg PO DAILY 06/05/16 [History] acetaZOLAMIDE [Acetazolamide] 500 mg PO BID 07/21/16 [History] Aspirin 81 mg PO DAILY tab.chew 07/26/16 [Rx] Cyanocobalamin (B-12) [Vitamin B12] 1,000 mcg PO DAILY #30 tablet 08/28/16 [Rx] Topiramate [Topamax] 50 mg PO BID 12/13/16 [History] Folic Acid 1 mg PO DAILY #30 tablet 02/21/17 [Rx] Losartan [Cozaar] 25 mg PO DAILY 03/06/17 [History] Ferrous Sulfate 325 mg PO BIDWM #60 tablet 03/10/17 [Rx] Rivaroxaban [Xarelto] 15 mg PO BIDWM tablet 03/10/17 [Rx] metroNIDAZOLE [Flagyl] 500 mg PO TID #21 tablet 03/10/17 [Rx] Allergies/Adverse Reactions: 3 Allergy/AdvReac Type Severity Reaction Status Date / Time Penicillins [PCN] Allergy Rash Verified 01/19/17 00:29 Date of admission: 03/07/17 00:52 Primary care physician: Francine Wood Consults: 03/07/17 02:46 Consult to Pulmonology [CONS] Routine Consulting Provider: [facility] Reason for Consult: Submassive PE, ICU management Call Completed: No 03/08/17 08:34 Consult to Occupational Therapy [CONS] Routine Comment: Evaluate, develop and implement POC Reason for Consult: patient complains of weakness, may need home health/ rehab upon DC Consult to Physical Therapy [CONS] Routine Comment: Evaluate, develop and implement POC Reason for Consult: patient complains of weakness, may need home health/ rehab upon DC Consult to Supervisor Veneer [CONS] Routine Reason for SW Consult: patient complains of weakness, may need home health/ rehab upon DC Discharging clinician: Shauna Olvera Anticipated date of discharge: 03/10/17 - Patient Status Disposition: Home, Self-Care Condition: Critical Overall status at discharge: patient is progressing back to baseline - Discharge Instructions Follow Up With: Francine Wood MD [Primary Care Provider] - 03/19/17 1:45 pm (Please follow up as schedule...) Forms: ED Satisfaction Letter, Work/School Release - Diet and Activity Activity: resume usual activities as tolerated Diet: advance to your usual diet, diabetic diet, low fat, low cholesterol, low salt diet Hospital course: Chavez Abad is a 62-year-old female .Pt initially presented with diarrhea associated with lower abdominal pain and cramping. She was found to have C. diff and was started on Flagyl and diarrhea has stopped now while she is afebrile and WBC count is normal. Of note, she has history of PE in July and was on Xarelto for several months until she had broken nose a couple months ago which caused her to stop her Xarelto. Denies any current issues with bleeding. The decision was made in the ED to order a CTA in setting of her history along with hypoxemia although she did not complain of shortness of breath. She was started on IV heparin and an echocardiogram was done which showed normal LV systolic function with EF greater than 65% however RV did show some depressed function. Please review the official report for details. Pulmonology was consulted who decided that she is not a candidate for TPA. Patient will continue to have Xarelto now. - Time Spent with Patient Total time spent providing and/or coordinating discharge services: Greater than 30 minutes - Constitutional Vitals: Temp Pulse Resp BP Pulse Ox 98.7 F 73 15 112/69 98 03/10/17 12:02 03/10/17 12:02 03/10/17 12:02 03/10/17 12:03/10/17 12:02 General appearance: Present: mild distress, A&O X 3, pleasant, obese, answers questions appropriately - Head Head exam: Present: atraumatic, normocephalic - Eye Eye exam: Present: PERRL, conjuntiva pink, sclera anicteric Pupils: Present: PERRL - Neck Neck exam general surgery: Present: supple, trachea midline. Absent: lymphadenopathy - Respiratory Respiratory exam: Present: CTAB. Absent: accessory muscle use, rales, rhonchi, wheezes - Cardiovascular Cardiovascular exam: Present: RRR, +S1, +S2. Absent: diastolic murmur, gallop, rubs, systolic murmur - GI/Abdominal GI/Abdominal exam: Present: normal bowel sounds, soft, no peritoneal signs. Absent: distended, tenderness - Extremities Exam Extremities exam: Present: warm, radial pulses palpable and symmetrical. Absent : calf tenderness, cyanotic, pedal edema - Neurological Exam Neurological exam: Present: CN II-XII intact, oriented X3, no focal deficits. Absent: pronater drift, facial droop, speech deficit - Skin Skin exam: Present: dry, intact
== END 2017-03-10 14:43 | disposition home or self-care (01) | DRG 176 ==
LOC: EMEROO 16:43 → ICNU 03-07 00:52 → 2ANU 03-08 10:20
PROVIDERS: ADMIT Hospitalist; ATTEND Family Medicine

== ENCOUNTER 2017-06-27 14:27 | Observation (INO) ==
[2017-06-27 16:02] LABS: Basophils # 0.1 K/mcL (0.0-0.2); Basophils % 0.7 %; Eosinophils # 0.1 K/mcL (0.0-0.6); Eosinophils % 1.1 %; Hematocrit 41.5 % (35.3-44.9); Hemoglobin 13.6 g/dL (11.5-15.4); Immature Granulocytes % 0.9 % (0-4); Lymphocytes # 1.5 K/mcL (0.6-4.6); Lymphocytes % 15.5 %; Mean Corpuscular HGB Conc 32.8 g/dL (31.6-35.5); Mean Corpuscular Hemoglobin 27.8 pg (28.0-33.3); Mean Corpuscular Volume 84.9 fL (83.0-100.0); Mean Platelet Volume 10.1 fL (9.4-12.4); Monocytes # 0.5 K/mcL (0.0-1.3); Monocytes % 5.4 %; Neutrophils # 7.5 K/mcL (1.6-8.9); Platelet Count 248 K/mcL (140-400); Red Blood Count 4.89 M/mcL (3.82-4.97); Red Cell Distribution Width 13.8 % (11.5-14.5); Segmented Neutrophils % 76.4 %
--- NOTE | 2017-06-27 16:07 | Emergency Department Note ---
Addendum entered and electronically signed by Venkat Polanco DO 06/27/17 20:27 : Clinically the patient does not have pneumonia as said in the CT report as a possibility. The patient has clear lung sounds and is in no respiratory distress and is not hypoxic with no leukocytosis and no fever. Due to this I will not give antibiotics Original Note: Disposition Clinical Impression: Chest pain Qualifiers: Chest pain type: precordial pain Qualified Code(s): R07.2 - Precordial pain Disposition: Admitted As Inpatient Condition: Good General Adult HPI - General Chief complaint: ED Chest Pain Stated complaint: Chest pain Time Seen by Provider: 06/27/17 15:28 Source: patient, family Limitations: no limitations Nursing Notes Reviewed: Yes Vital Signs Reviewed: Yes - History of Present Illness HPI Narrative: 62-year-old female who reports that 3 and half hours ago she developed sudden onset of substernal chest pain. It lasted for approximately 1-1/2 hours and then dissipated. However she is still having some pain of her left scapula. Left scapular pain is minor. She does state that she has a past medical history of pulmonary embolism and is currently on Xarelto. She reports her other medical problems or diabetes. She denies having current chest pain. She denies feeling overtly dyspneic currently. Radiation: non-radiation Pain Severity: severe Pain Scale: 8 Improves with: nothing Worsens with: nothing Associated symptoms: Reports: denies other symptoms Treatments Prior to Arrival: none - Related Data Home Medications Medication Instructions Recorded Confirmed Atorvastatin [Lipitor] 40 mg PO HS 06/05/16 06/27/17 Escitalopram [Lexapro] 20 mg PO DAILY 06/05/16 06/27/17 Ezetimibe [Zetia] 10 mg PO DAILY 06/05/16 06/27/17 Levothyroxine [Synthroid] 100 mcg PO QAM 06/05/16 06/27/17 Omeprazole [PriLOSEC] 20 mg PO DAILY 06/05/16 06/27/17 acetaZOLAMIDE [Acetazolamide] 500 mg PO BID 07/21/16 06/27/17 Topiramate [Topamax] 50 mg PO BID 12/13/16 06/27/17 Losartan [Cozaar] 25 mg PO DAILY 03/06/17 06/27/17 B,C/Folic/Zinc/Copper Ox/Vit E 1 each PO DAILY 06/27/17 06/27/17 [Stress B-Complex Tablet] L. Acidophilus/Pectin, [address] 1 each PO DAILY 06/27/17 06/27/17 [Acidophilus Probiotic Capsule] Rivaroxaban [Xarelto] 20 mg PO DAILY 06/27/17 06/27/17 Previous Rx's Medication Instructions Recorded Aspirin 81 mg PO DAILY tab.chew 07/26/16 Folic Acid 1 mg PO DAILY #30 tablet 02/21/17 Allergies Allergy/AdvReac Type Severity Reaction Status Date / Time Penicillins [PCN] Allergy Rash Verified 01/19/17 00:29 All systems ED: reviewed and negative except as stated. Constitutional: Denies: fever Cardiovascular: Reports: chest pain Respiratory: Reports: dyspnea Gastrointestinal: Denies: abdominal pain Integumentary: Denies: rash Endocrine: Reports: fatigue Past Medical History - Past Medical History Medical history: Reports: diabetes, GERD, hyperlipidemia, hypertension, pulmonary embolus, other Surgical history: Reports: appendectomy, cholecystectomy, hysterectomy, other ( ECG with banding and cauterization) Psychiatric history: Reports: depression - Social History Smoking Status: Never smoker Smokeless Tobacco Status: No Alcohol use: Reports: none Drug use: Reports: none Physical Exam - General Limitations: no limitations General appearance: alert, in no apparent distress - Head Head exam: atraumatic - Eye Eye exam: Present: normal appearance, PERRL - ENT ENT exam: normal exam, normal oropharynx - Neck Neck exam: Present: normal inspection - Chest Chest inspection: Present: normal inspection - Respiratory Respiratory exam: Present: normal lung sounds bilaterally. Absent: respiratory distress - Cardiovascular Cardiovascular exam: Present: regular rate, normal rhythm - Abdominal Exam Abdominal exam: Present: soft, Non-Tender - Extremities Exam Extremities exam: Present: normal inspection - Neurological Exam Neurological exam: Present: alert, oriented X3 - Psychiatric Psychiatric exam: Present: normal affect, normal mood - Skin Skin exam: Present: warm, dry Course Course Narrative: She had a recurrence of her chest pain while in the emergency Department which resolved after nitroglycerin. She received aspirin. And a repeat EKG. Repeat EKG just show a new T-wave inversion in lead 3 however the baseline is very flat and is minimal. She is now pain-free. Vital Signs Temperature 98.1 F 06/27/17 14:29 Pulse Rate 95 06/27/17 14:29 Respiratory Rate 15 06/27/17 14:29 Blood Pressure 158/98 06/27/17 14:29 O2 Sat by Pulse Oximetry 97 06/27/17 14:29 Temperature 97.9 F 06/29/17 02:22 Pulse Rate 76 06/29/17 02:22 Respiratory Rate 14 06/29/17 02:22 Blood Pressure 137/80 06/29/17 02:22 O2 Sat by Pulse Oximetry 94 06/29/17 02:22 Oxygen Delivery Oxygen Delivery Room Air Medical Decision Making - Medical Records Medical records reviewed: Yes I reviewed the patient's medical records. - Lab Data Lab results reviewed: Yes I reviewed the patient's lab results. Result diagrams: 06/29/17 05:42 06/27/17 15:48 - Radiology Data Radiology results reviewed: Yes I reviewed the patient's radiology results. Chest X-Ray 06/27/17 14:34 IMPRESSION: No evidence of acute disease. D/ / Jairon Mcdaniel MD / Jairon Mcdaniel MD Interpreting Provider: Jairon Mcdaniel MD Chest CTA 06/27/17 16:03 IMPRESSION: Patient motion artifact limited exam. Within this limitation no definite evidence for pulmonary embolism is identified. Mild patchy ground-glass opacities bilaterally in predominantly peribronchovascular distribution more so to the lower lung zones may be on the basis of multifocal infiltrates, mild pulmonary edema or microatelectatic change. Stable cardiomegaly. Diffuse fatty infiltration of the liver. D/ / 06/27/2017 17:32:54 Mt Davis MD / ocrtandra Interpreting Provider: Mt Davis MD - EKG Data EKG #1 EKG attestation: Yes I reviewed and interpreted this EKG. EKG shows normal: sinus rhythm Rate: normal Rhythm: NSR Zearing/QRS: left axis deviation Interpretation: nonspecific ST-T wave changes EKG #2 EKG attestation: Yes I reviewed and interpreted this EKG. EKG shows normal: sinus rhythm Rate: normal Rhythm: NSR Zearing/QRS: left axis deviation T wave inversions noted in: III Attestation Statement - Attestation Attestation: I examined this patient and my medical decision-making was reviewed with the Resident Physician, Dr. Polanco. I agree with the documented findings, disposition and treatment plan as described except to the extent set forth below. 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 Pt with no other assocd sxs. Pt with hx PE on xarelto. I agree with pt's PE findings as documented. VSS. Pt in NAD. EKG shows NSR with no ischemia. CXR unremarkable. CTA with no PE. Pt's pain relieved with ASA and nitro. Pain free currently. Labs inclu trop wnl. Will admit for further eval of CP, d/w hospitalist.
[2017-06-27 16:11] LABS: INR 1.3
[2017-06-27 16:13] LABS: Calcium 9.2 mg/dL (8.6-10.3); Carbon Dioxide 21 mEq/L (23-29); Chloride 104 mEq/L (98-107); Potassium 3.6 mEq/L (3.5-5.1); Sodium 133 mEq/L (136-145)
[2017-06-27 16:14] LABS: Activated Partial Thrombo Time 35.2 Seconds (26.0-36.0)
[2017-06-27 16:18] LABS: BUN/Creatinine Ratio 17 (6-26); Blood Urea Nitrogen 14 mg/dL (8-23); Glucose 419 mg/dL (70-105); Osmolality,Calculated 294 (280-300); eGFR For African Americans > 60 (> 60); eGFR For Non-African Americans > 60 (> 60)
[2017-06-27] MEDS ORDERED: Aspirin 325 MG TABLET PO ONE (17:34)
[2017-06-27] MEDS: Nitroglycerin 0.4 MG TAB.SUBL SL PRN (17:58)
[2017-06-27] MEDS ORDERED: Ondansetron ODT 4 MG TAB.RAPDIS SL PRN (22:10)
[2017-06-27] MEDS ORDERED: Naloxone 0.4 MG/ML INJ IVP PRN (22:10)
[2017-06-27] MEDS ORDERED: D5% in Water 1,000 ML IVC PRN (22:22)
[2017-06-27] MEDS ORDERED: *HR* Dextrose 50 % in Water (Syg) 50 ML SYRINGE IVP PRN (22:22)
[2017-06-27] MEDS ORDERED: Dextrose Gel 15 GM/37.5 ML TUBE PO PRN ×2 (22:22)
--- NOTE | 2017-06-27 22:52 | Internal Med History&Physical ---
<SeverianoTremaine - Last Filed: 06/27/17 23:38> Date of Encounter: 06/27/17 Time of Encounter: 22:15 Assessment and Plan (1) Chest pain Current visit: Yes Status: Acute ACS rule out; HEART Score 4 in absence of fever, cough, myalgias, less likely to be related to respiratory infection low risk Well's score and negative CTA suggests low likelihood of pulmonary embolism concerning for unstable angina will trend troponins times 3 will obtain nuclear stress test in a.m. interest started midnight in consideration of stress test patient will be placed on continuous pulse ox and cardiac monitoring Qualifiers: Chest pain type: precordial pain Qualified Code(s): R07.2 - Precordial pain (2) DM type 2 (diabetes mellitus, type 2) Current visit: No Status: Chronic Diet-controlled; patient denies any medications including PO or insulin to have blood glucose elevation in the ED for hundreds range PlayStation a medium dose SSI with TID/AC/HS fingerstick glucose readings though NPO at midnight, will order patient diabetic diet otherwise Qualifiers: Diabetes mellitus complication status: with unspecified complications Diabetes mellitus exterminator helper termite insulin use: without exterminator helper termite use Qualified Code( s): E11.8 - Type 2 diabetes mellitus with unspecified complications (3) Hypothyroidism Current visit: No Status: Chronic Continue Synthroid Qualifiers: Hypothyroidism type: unspecified Qualified Code(s): E03.9 - Hypothyroidism , unspecified (4) Hypertension Current visit: No Status: Chronic Continue home medications blood pressures virtually normotensive Qualifiers: Hypertension type: essential hypertension Qualified Code(s): I10 - Essential (primary) hypertension (5) DVT prophylaxis Current visit: No Status: Acute SCDs ambulate with assistance Internal Medicine - H&P: HPI Chief complaint: chest pain Admitted From: Home Plans for Post Hospital Care: Home History of present illness: Ms. Ludwig is a 62 year old female who is admitted for ACS rule out following unprovoked onset of retrosternal chest pain around 2pm this afternoon. Pain severity initially 9 out of 10, described as heavy pressure, radiated into the left shoulder, did not have any known palliative or provocative factors, and was not associated with any other symptoms including diaphoresis, syncope, vomiting, shortness or, or pedal edema. Patient denies similar chest pains in the past. Patient has stated history upon air embolism is currently on Zarrella total for this. Patient denies any recent surgery, immobilization, hemoptysis, or known malignancy. Patient does have history of hypertension, hyperlipidemia, and I control diabetes. Patient is not a smoker. Denies cardiac history. ED workup overall unremarkable including initial troponin, chest CTA for PE, and EKG. Well's PE score 1.5 due to history. HEART score = 4 at present. Past Med Surg Social Fam HX - Past Medical History Medical history: diabetes, GERD, hyperlipidemia, hypertension, pulmonary embolus , other Psychiatric history: depression - Past Surgical History Surgical History: appendectomy, cholecystectomy, hysterectomy, other - Social History Smoking Status: Never smoker Smokeless Tobacco Status: No Alcohol use: none Drug use: none - Family History Father Living Status: Still Living Hx Family Cardiac Disorders: Yes (NH with stents) Hx Family Respiratory Disorders: No Hx Family Cancer: No Hx Family GI Disorders: No Hx Family Genitourinary Disorders: No Hx Family Endocrine Disorder: Yes (DM) Hx Family Musculoskeletal Disorders: No Hx Family Neuromuscular Disorders: No Hx Family Neurologic Disorders: No Hx Family HEENT Disorders: No Hx Family Autoimmune Disorders: No Hx Family Reproductive Disorders: No Hx Family Psychosocial Disorders: No Hx Family Medical Disorders: No Brother Living Status: Still Living Hx Family Endocrine Disorder: Yes Mother Hx Family Cardiac Disorders: No Hx Family Respiratory Disorders: No Hx Family Cancer: No Hx Family GI Disorders: No Hx Family Genitourinary Disorders: No Hx Family Endocrine Disorder: No Hx Family Musculoskeletal Disorders: No Hx Family Neuromuscular Disorders: No Hx Family Neurologic Disorders: No Hx Family HEENT Disorders: No Hx Family Autoimmune Disorders: No Hx Family Reproductive Disorders: No Hx Family Psychosocial Disorders: No Hx Family Medical Disorders: No Internal Medicine - H&P: Meds Atorvastatin [Lipitor] 40 mg PO HS 06/05/16 [History] Escitalopram [Lexapro] 20 mg PO DAILY 06/05/16 [History] Ezetimibe [Zetia] 10 mg PO DAILY 06/05/16 [History] Levothyroxine [Synthroid] 100 mcg PO QAM 06/05/16 [History] Omeprazole [PriLOSEC] 20 mg PO DAILY 06/05/16 [History] acetaZOLAMIDE [Acetazolamide] 500 mg PO BID 07/21/16 [History] Aspirin 81 mg PO DAILY tab.chew 07/26/16 [Rx] Topiramate [Topamax] 50 mg PO BID 12/13/16 [History] Folic Acid 1 mg PO DAILY #30 tablet 02/21/17 [Rx] Losartan [Cozaar] 25 mg PO DAILY 03/06/17 [History] B,C/Folic/Zinc/Copper Ox/Vit E [Stress B-Complex Tablet] 1 each PO DAILY [History] L. Acidophilus/Pectin, [place] [Acidophilus Probiotic Capsule] 1 each PO DAILY [History] Rivaroxaban [Xarelto] 20 mg PO DAILY 06/27/17 [History] 3 Allergy/AdvReac Type Severity Reaction Status Date / Time Penicillins [PCN] Allergy Rash Verified 01/19/17 00:29 All Systems PM: A 10-system review of systems was performed and is negative for pertinent findings except as documented above in the HPI. Review of systems: Denies headache, fevers, chills, sweats, cough, sputum production, nausea, diarrhea, or dysuria. - Constitutional Vitals: Temp Pulse Resp BP Pulse Ox 99.4 F 79 14 117/85 95 06/27/17 22:16 06/27/17 22:16 06/27/17 22:16 06/27/17 22:16 06/27/17 22:16 Exam: CONSTITUTIONAL: Alert and oriented X3, well-nourished, well appearing, in no apparent distress HEAD: Normocephalic; atraumatic. EYES: PERRL, no scleral icterus, no drainage, no conjunctival injection NOSE: The nose is normal in appearance without rhinorrhea RESP: NRD without use of accessory musculature, CTA b/l with no wheezes/rales/ rhonchi CARD: Regular rhythm, without murmurs, rubs, or gallop ABD: grossly normal, soft, non-tender, no guarding/distention/rigidity SKIN: normal appearance, no pallor/diaphoresis,mottling,jaundice,cyanosis EXT: symmetrical dorsalis pedis pulses, no pedal edema PSYCH: appropriate mood/affect Internal Med - H&P Results - Labs CBC & Chem 7: 06/27/17 15:48 06/27/17 15:48 <Stacey Miranda - Last Filed: 06/28/17 04:43> Date of Encounter: 06/28/17 Internal Medicine - H&P: HPI History of present illness: Ms. Ludwig is a 62 year old female All Systems PM: A 10-system review of systems was performed and is negative for pertinent findings except as documented above in the HPI. - Constitutional Vitals: Temp Pulse Resp BP Pulse Ox 98.5 F 64 14 123/79 97 06/28/17 02:50 06/28/17 02:50 06/28/17 02:50 06/28/17 02:50 06/28/17 02:50 Internal Med - H&P Results - Labs CBC & Chem 7: 06/27/17 15:48 06/27/17 15:48 Labs: Cardiac Enzymes 06/27/17 Range/Units 22:38 Troponin I < 0.03 (< 0.04) ng/mL - Attending Attestation I have seen and examined pt independently, I have discussed with resident physician Dr العلي regarding the management plan. Agree with the documentation.
[2017-06-28] MEDS: acetaZOLAMIDE 250 MG TABLET PO SCH ×3 (02:09→22:09)
[2017-06-28] MEDS: Topiramate 25 MG TABLET PO SCH ×3 (02:09→22:08)
[2017-06-28] MEDS: Insulin LISPRO 300 UNITS/3 ML VIAL SQ SCH ×5 (02:09→22:12)
[2017-06-28] MEDS ORDERED: Regadenoson 0.4 MG/5 ML SYRINGE IVP ONE (06:48)
[2017-06-28] MEDS: *HR* Rivaroxaban 10 MG TABLET PO SCH (11:26)
--- NOTE | 2017-06-28 12:03 | Internal Med Progress Note ---
Date of Encounter: 06/28/17 Time of Encounter: 10:10 - Assessment and plan (1) Chest pain Current Visit: Yes Status: Acute Assessment and plan: Sudden onset substernal chest pain while at rest. No aggravating factors, relieved with NTG. Describes as pressure and lasting about 30 min with radiation to left scapula. No SOB, n/v/d, diaphoresis or SOB. Prior hisotry of PE, HTN, HLD, DM II, and prior NSTEMI. She rated pain 9/10 at onset, after nitroglycerin as 6/10. She denies any chest pain currently, she did have chest pain during day 1 of stress test. The pain is not reproducible with palpation, deep inspiration, or movement. Troponins are negative 3, chest x-ray was negative. Due to patient's past medical history of PE, patient is given a chest CT that was negative for pulmonary embolism. There are mild patchy groundglass opacities bilaterally in the bronchovesicular distribution or so and lower lungs maybe on the basis of multifocal infiltrates, mild pulmonary edema, or macro atelectatic change. There is also stable cardiomegaly noted as well as diffuse fatty infiltration of the liver. Patient and prior echocardiogram in February,. She had an LVEF of 6065% with normal LV systolic function, mild hypertrophy of left ventricle, mild LVEDD , mild TR. Patient is a 2 day stress test. She has completed day 1. Continue telemetry. Monitor patient's vitals and condition Cardiac and diabetic diet Lipid panel ordered for morning. Qualifiers: Chest pain type: precordial pain Qualified Code(s): R07.2 - Precordial pain (2) Morbid obesity with BMI of 40.0-44.9, adult Current Visit: Yes Status: Chronic Assessment and plan: Chronic. Lifestyle modifications. (3) DM type 2 (diabetes mellitus, type 2) Current Visit: No Status: Chronic Assessment and plan: A1c was 5.9% in March,. We will redraw for the morning. Continue sliding scale insulin, Accu-Cheks before meals at bedtime, diabetic diet. Qualifiers: Diabetes mellitus complication status: with unspecified complications Diabetes mellitus technician terminal and repeater insulin use: without fpc use Qualified Code( s): E11.8 - Type 2 diabetes mellitus with unspecified complications (4) HLD (hyperlipidemia) Current Visit: Yes Status: Chronic Assessment and plan: Chronic. Continue home medications. Lipid panel ordered for morning. Qualifiers: Hyperlipidemia type: unspecified Qualified Code(s): E78.5 - Hyperlipidemia , unspecified (5) Hypothyroidism Current Visit: Yes Status: Chronic Assessment and plan: Chronic. Continue levothyroxine. Qualifiers: Hypothyroidism type: unspecified Qualified Code(s): E03.9 - Hypothyroidism , unspecified (6) Hypertension Current Visit: Yes Status: Chronic Assessment and plan: Chronic. Continue home medications. Monitor vital signs per admission order. Qualifiers: Hypertension type: essential hypertension Qualified Code(s): I10 - Essential (primary) hypertension (7) DVT prophylaxis Current Visit: Yes Status: Acute Assessment and plan: WANG guardado. Patient has been ambulatory. - Time Spent With Patient less than 15 minutes - Subjective Interval history: Pt was seen and assessed at bedside at 1010 am. Pt denies chest pain currently. Chest pain onset yesterday at rest, lasting approximately 30 min. No aggravating factors, relieved with NTG. Pt denies SOB, N/V/D, no diaphoresis or SOB. Pain midsternal with some radiation to the left scapula. She denies current chest pain, n/v/d, fever, chills, abd pain, dizziness. Pt is 2 day stress test due to BMI. - Constitutional Vitals: Temp Pulse Resp BP Pulse Ox 99.1 F 57 18 111/71 96 06/28/17 11:02 06/28/17 11:02 06/28/17 11:02 06/28/17 11:02 06/28/17 11:02 General appearance: Present: cooperative, A&O X 3, pleasant, no acute distress, answers questions appropriately - Head Head exam: Present: atraumatic, normal inspection, normocephalic - Eye Eye exam: Present: normal appearance, conjuntiva pink, sclera anicteric - Neck Neck exam general surgery: Present: supple, trachea midline. Absent: lymphadenopathy, tenderness - Respiratory Respiratory exam: Present: CTAB. Absent: accessory muscle use, chest wall tenderness, rales, respiratory distress, rhonchi, wheezes - Cardiovascular Cardiovascular exam: Present: RRR, +S1, +S2. Absent: diastolic murmur, gallop, rubs, systolic murmur - GI/Abdominal GI/Abdominal exam: Present: normal bowel sounds, soft, no peritoneal signs. Absent: distended, hepatomegaly, tenderness - Extremities Exam Extremities exam: Present: normal capillary refill, normal inspection, warm, radial pulses palpable and symmetrical. Absent: calf tenderness, cyanotic, pedal edema - Neurological Exam Neurological exam: Present: alert, oriented X3, no focal deficits. Absent: altered, facial droop, speech deficit - Skin Skin exam: Present: dry, intact, normal color, warm. Absent: rash Internal Medicine: Result - Labs CBC & Chem 7: 06/27/17 15:48 06/27/17 15:48 Labs: Cardiac Enzymes 06/27/17 06/28/17 Range/Units 22:38 04:31 Troponin I < 0.03 < 0.03 (< 0.04) ng/mL - ABG Interpretation ABG results: PT/INR, D-dimer PT 14.0 Seconds (9.4-12.1) H 06/27/17 15:48 Consult Discharge Plan - Plan Referrals: Francine Wood MD [Primary Care Provider] -
[2017-06-28] MEDS: Acetaminophen 325 MG TABLET PO PRN (20:29)
[2017-06-29 06:43] LABS: Basophils % 0.6 %; Eosinophils % 1.7 %; Hematocrit 40.5 % (35.3-44.9); Hemoglobin 13.1 g/dL (11.5-15.4); Immature Granulocytes % 0.9 % (0-4); Lymphocytes % 21.2 %; Mean Corpuscular HGB Conc 32.3 g/dL (31.6-35.5); Mean Corpuscular Hemoglobin 27.8 pg (28.0-33.3); Mean Corpuscular Volume 85.8 fL (83.0-100.0); Mean Platelet Volume 9.8 fL (9.4-12.4); Platelet Count 235 K/mcL (140-400); Red Blood Count 4.72 M/mcL (3.82-4.97); Red Cell Distribution Width 14.1 % (11.5-14.5); Segmented Neutrophils % 69.6 %
[2017-06-29 06:44] LABS: Basophils # 0.1 K/mcL (0.0-0.2); Eosinophils # 0.2 K/mcL (0.0-0.6); Lymphocytes # 2.2 K/mcL (0.6-4.6); Monocytes # 0.6 K/mcL (0.0-1.3); Neutrophils # 7.3 K/mcL (1.6-8.9); Nucleated Red Blood Cells 0.2 /100 WBC (0)
[2017-06-29 07:19] LABS: BUN/Creatinine Ratio 26 (6-26); Blood Urea Nitrogen 21 mg/dL (8-23); Calcium 8.7 mg/dL (8.6-10.3); Carbon Dioxide 23 mEq/L (23-29); Chloride 108 mEq/L (98-107); Chol/HDL Ratio 3.3 (0-4.9); Cholesterol 109 mg/dL (< 200); Glucose 240 mg/dL (70-105); HDL Cholesterol 33 mg/dL (40-59); LDL Cholesterol,Calculated 30 mg/dL (0-99); Osmolality,Calculated 297 (280-300); Potassium 3.2 mEq/L (3.5-5.1); Sodium 138 mEq/L (136-145); Triglycerides 228 mg/dL (< 150); eGFR For African Americans > 60 (> 60); eGFR For Non-African Americans > 60 (> 60)
[2017-06-29 08:10] LABS: Hemoglobin A1C 9.5 %
[2017-06-29] MEDS: Topiramate 25 MG TABLET PO SCH ×2 (08:58→21:57)
[2017-06-29] MEDS: Insulin LISPRO 300 UNITS/3 ML VIAL SQ SCH ×4 (08:58→21:57)
[2017-06-29] MEDS: *HR* Rivaroxaban 10 MG TABLET PO SCH (08:59)
[2017-06-29] MEDS: acetaZOLAMIDE 250 MG TABLET PO SCH ×2 (09:01→21:56)
[2017-06-29] MEDS: Acetaminophen 325 MG TABLET PO PRN (11:45)
[2017-06-29] MEDS: Nitroglycerin 0.4 MG TAB.SUBL SL PRN ×2 (11:45→11:49)
[2017-06-29] MEDS ORDERED: GI Cocktail 40 ML EACH PO ONE (12:06)
--- NOTE | 2017-06-29 13:05 | Discharge Summary ---
Date of Encounter: 06/29/17 Time of Encounter: 11:10 - Discharge Diagnosis (1) Chest pain Priority: Primary Status: Acute Comments: Sudden onset substernal chest pain while at rest. No aggravating factors, relieved with NTG. Describes as pressure and lasting about 30 min with radiation to left scapula. No SOB, n/v/d, diaphoresis or SOB. Prior hisotry of PE, HTN, HLD, DM II, and prior NSTEMI. She rated pain 9/10 at onset, after nitroglycerin as 6/10. She denies any chest pain currently, she did have chest pain during day 1 of stress test. The pain is not reproducible with palpation, deep inspiration, or movement. Troponins are negative 3, chest x-ray was negative. Due to patient's past medical history of PE, patient is given a chest CT that was negative for pulmonary embolism. There are mild patchy groundglass opacities bilaterally in the bronchovesicular distribution or so and lower lungs maybe on the basis of multifocal infiltrates, mild pulmonary edema, or micro atelectatic change. Pulmonology has been consulted, appreciate the recommendation and consultation. There is also stable cardiomegaly noted as well as diffuse fatty infiltration of the liver. Patient had prior echocardiogram in February,. She had an LVEF of 60-65% with normal LV systolic function, mild hypertrophy of left ventricle, mild LVEDD , mild TR. Stress test today showed gated EF greater than 70%, perfusion imaging was negative for ischemia or infarct. 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 Patient took first dose here, initially states that she got relief, then states that she did not. Prescription given patient will follow up with cardiology in the office. Qualifiers: Chest pain type: precordial pain Qualified Code(s): R07.2 - Precordial pain (2) Morbid obesity with BMI of 40.0-44.9, adult Priority: Secondary Status: Chronic Comments: Chronic. Implement lifestyle modifications. (3) DM type 2 (diabetes mellitus, type 2) Priority: Secondary Status: Chronic Comments: Uncontrolled. A1c was 5.9% in March,, 9.5% currently. Continue home medications, Accu-Chek regimen at home, diabetic diet. Follow with primary care. Qualifiers: Diabetes mellitus complication status: with unspecified complications Diabetes mellitus technician terminal and repeater insulin use: without [facility] use Qualified Code( s): E11.8 - Type 2 diabetes mellitus with unspecified complications (4) HLD (hyperlipidemia) Priority: Secondary Status: Chronic Comments: Chronic. Continue home medications. Triglycerides elevated mildly at 228. HDL is low at 33. Encourage lifestyle modifications. Qualifiers: Hyperlipidemia type: unspecified Qualified Code(s): E78.5 - Hyperlipidemia , unspecified (5) Hypothyroidism Priority: Secondary Status: Chronic Comments: Continue home medications. Qualifiers: Hypothyroidism type: unspecified Qualified Code(s): E03.9 - Hypothyroidism , unspecified (6) Hypertension Priority: Secondary Status: Chronic Comments: Blood Pressure well controlled in the hospital. Continue home medications. Qualifiers: Hypertension type: essential hypertension Qualified Code(s): I10 - Essential (primary) hypertension (7) DVT prophylaxis Priority: Secondary Status: Acute Comments: WANG guardado ordered. - Discharge Medications Prescriptions: Isosorbide MONOnitrate (24 HR) [Imdur] 30 mg PO DAILY #30 tab.er.24h Home Medications: Atorvastatin [Lipitor] 40 mg PO HS 06/05/16 [History] Escitalopram [Lexapro] 20 mg PO DAILY 06/05/16 [History] Ezetimibe [Zetia] 10 mg PO DAILY 06/05/16 [History] Levothyroxine [Synthroid] 100 mcg PO QAM 06/05/16 [History] Omeprazole [PriLOSEC] 20 mg PO DAILY 06/05/16 [History] acetaZOLAMIDE [Acetazolamide] 500 mg PO BID 07/21/16 [History] Aspirin 81 mg PO DAILY tab.chew 07/26/16 [Rx] Topiramate [Topamax] 50 mg PO BID 12/13/16 [History] Folic Acid 1 mg PO DAILY #30 tablet 02/21/17 [Rx] Losartan [Cozaar] 25 mg PO DAILY 03/06/17 [History] B,C/Folic/Zinc/Copper Ox/Vit E [Stress B-Complex Tablet] 1 each PO DAILY [History] L. Acidophilus/Pectin, [place] [Acidophilus Probiotic Capsule] 1 each PO DAILY [History] Rivaroxaban [Xarelto] 20 mg PO DAILY 06/27/17 [History] Isosorbide MONOnitrate (24 HR) [Imdur] 30 mg PO DAILY #30 tab.er.24h 06/29/17 [ Rx] Allergies/Adverse Reactions: 3 Allergy/AdvReac Type Severity Reaction Status Date / Time Penicillins [PCN] Allergy Rash Verified 01/19/17 00:29 Procedures/tests Complete & Pending: Procedures Performed prior 72 hours Category Date Time Status NM melquiades perf SPECT multi [NM] Routine Exams 06/28/17 08:00 Taken SP pharm nuclear stress Routine Y 06/28/17 Completed Date of admission: 06/27/17 21:55 Primary care physician: Francine Wood Discharging clinician: Deloris Low Anticipated date of discharge: 06/29/17 - Patient Status Disposition: Home, Self-Care Condition: Good Functional capacity at discharge: independent ambulation Overall status at discharge: patient is back to baseline - Discharge Instructions Follow Up With: Cardiology Michelle [Provider Group] - 07/13/17 3:30 pm Francine Wood MD [Primary Care Provider] - 07/06/17 1:45 pm Additional Instructions: Please follow up with your PCP in the next 7-10 days. Return to the ER immediately if your symptoms return or worsen or for any other problems or concerns. REturn to your normal diet and activities as tolerated. Your A1c is significantly elevated over your last result-9.5% . Please follow up with your PCP for continued monitoring. Check your blood glucose as directed by your PCP and take your medications as directed. Make sure that you are following a diabetic diet and getting plenty of exercise. - Diet and Activity Activity: increase activity as tolerated Diet: diabetic diet, low fat, low cholesterol Hospital course: Ms. Ludwig is a 62 year old female - Time Spent with Patient Total time spent providing and/or coordinating discharge services: Less than 30 minutes - Constitutional Vitals: Temp Pulse Resp BP Pulse Ox 98.5 F 79 16 91/58 96 06/29/17 11:30 06/29/17 11:51 06/29/17 11:30 06/29/17 11:51 06/29/17 11:30 General appearance: Present: cooperative, A&O X 3, pleasant, no acute distress, answers questions appropriately - Head Head exam: Present: atraumatic, normal inspection, normocephalic - Eye Eye exam: Present: normal appearance, conjuntiva pink, sclera anicteric - Neck Neck exam general surgery: Present: normal inspection, supple, trachea midline. Absent: lymphadenopathy, tenderness - Respiratory Respiratory exam: Present: CTAB. Absent: accessory muscle use, decreased breath sounds, prolonged expiratory phase, rales, rhonchi, wheezes - Cardiovascular Cardiovascular exam: Present: RRR, +S1, +S2. Absent: diastolic murmur, gallop, rubs, systolic murmur - GI/Abdominal GI/Abdominal exam: Present: normal bowel sounds, soft, no peritoneal signs. Absent: distended, hepatomegaly, tenderness - Extremities Exam Extremities exam: Present: normal capillary refill, normal inspection, pedal edema, warm, radial pulses palpable and symmetrical. Absent: calf tenderness, cyanotic, tenderness Additional comments: +2 non-pitting to BLE, pt states is normal for her. - Neurological Exam Neurological exam: Present: alert, oriented X3, no focal deficits. Absent: altered, facial droop, speech deficit - Skin Skin exam: Present: dry, intact, warm. Absent: rash - VTE Documentation of Mechanical Device: Intermittent pneumatic compression device
[2017-06-29] MEDS: Isosorbide MONOnitrate (24 HR) 30 MG TAB.ER.24H PO SCH (17:05)
--- NOTE | 2017-06-30 06:39 | Electrocardiograph Report ---
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
--- NOTE | 2017-06-30 06:45 | Electrocardiograph Report ---
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
[2017-06-30 08:09] VITALS: BP 129/71
[2017-06-30] MEDS: acetaZOLAMIDE 250 MG TABLET PO SCH (08:12)
[2017-06-30] MEDS: Topiramate 25 MG TABLET PO SCH (08:12)
[2017-06-30] MEDS: Isosorbide MONOnitrate (24 HR) 30 MG TAB.ER.24H PO SCH (08:12)
[2017-06-30] MEDS: Acetaminophen 325 MG TABLET PO PRN (08:13)
[2017-06-30] MEDS: *HR* Rivaroxaban 10 MG TABLET PO SCH (08:13)
[2017-06-30] MEDS: Insulin LISPRO 300 UNITS/3 ML VIAL SQ SCH (08:15)
--- NOTE | 2017-06-30 09:31 | Pulmonology Consult Note ---
Date of Encounter: 06/30/17 Time of Encounter: 08:45 Assessment and Plan (1) Abnormal CT scan, chest Current Visit: Yes Status: Chronic I have reviewed CT chest results with the patient and there is old granuloma with calcification. The findings and the CT chest is nonspecific and unlikely infectious since there is no evidence clinically of any pneumonia and also normal white cell count. To my review there is motion artifact and not very reliable, however differential diagnosis such as sarcoidosis as patient has a granuloma or previous exposure such as histoplasmosis in the differential diagnosis and the fact that the patient is asymptomatic there is no need for further workup. Discussed with primary team. Thank you for consultation. (2) Calcified granuloma of lung Current Visit: Yes Status: Chronic (3) Chest pain Current Visit: Yes Status: Resolved Qualifiers: Chest pain type: precordial pain Qualified Code(s): R07.2 - Precordial pain (4) Suspected sleep apnea Current Visit: Yes Status: Chronic Patient with morbid obesity as well as history of snoring and rowded oropharynx and sleep study as outpatient is recommended. History of Present Illness Consult date: 06/30/17 Requesting physician: Deloris Low Reason for consult: abnormal CXR/CT Chief complaint: Chest pain History of present illness: This is a pleasant 62-year-old female poor historian who is admitted for acute coronary syndrome and she has a history of pulmonary embolism. Patient had chest pain and she denies any chest pain at this time. Patient has been worked up for cardiac reason. Patient denies any significant productive cough or dyspnea and she denies any wheezing and there is no hemoptysis. She reports history of snoring in the past and she was never diagnosed with sarcoidosis and she does not remember if there is any lung lesions. Patient denies any productive cough and no nausea or vomiting. Previously she had provoked pulmonary embolism. Patient denies any history of smoking and she had CT chest with some abnormalities and pulmonary consult for evaluation. Past Med Surg Social Fam HX - Past Medical History Medical history: diabetes, GERD, hyperlipidemia, hypertension, pulmonary embolus , other Psychiatric history: depression - Past Surgical History Surgical History: appendectomy, cholecystectomy, hysterectomy, other (ECG with banding and cauterization) - Social History Smoking Status: Never smoker Smokeless Tobacco Status: No Alcohol use: none Drug use: none - Family History Father Living Status: Still Living Hx Family Cardiac Disorders: Yes (IL with stents) Hx Family Respiratory Disorders: No Hx Family Cancer: No Hx Family GI Disorders: No Hx Family Genitourinary Disorders: No Hx Family Endocrine Disorder: Yes (DM) Hx Family Musculoskeletal Disorders: No Hx Family Neuromuscular Disorders: No Hx Family Neurologic Disorders: No Hx Family HEENT Disorders: No Hx Family Autoimmune Disorders: No Hx Family Reproductive Disorders: No Hx Family Psychosocial Disorders: No Hx Family Medical Disorders: No Brother Living Status: Still Living Hx Family Endocrine Disorder: Yes Mother Hx Family Cardiac Disorders: No Hx Family Respiratory Disorders: No Hx Family Cancer: No Hx Family GI Disorders: No Hx Family Genitourinary Disorders: No Hx Family Endocrine Disorder: No Hx Family Musculoskeletal Disorders: No Hx Family Neuromuscular Disorders: No Hx Family Neurologic Disorders: No Hx Family HEENT Disorders: No Hx Family Autoimmune Disorders: No Hx Family Reproductive Disorders: No Hx Family Psychosocial Disorders: No Hx Family Medical Disorders: No Medications and Allergies Atorvastatin [Lipitor] 40 mg PO HS 06/05/16 [History] Escitalopram [Lexapro] 20 mg PO DAILY 06/05/16 [History] Ezetimibe [Zetia] 10 mg PO DAILY 06/05/16 [History] Levothyroxine [Synthroid] 100 mcg PO QAM 06/05/16 [History] Omeprazole [PriLOSEC] 20 mg PO DAILY 06/05/16 [History] acetaZOLAMIDE [Acetazolamide] 500 mg PO BID 07/21/16 [History] Aspirin 81 mg PO DAILY tab.chew 07/26/16 [Rx] Topiramate [Topamax] 50 mg PO BID 12/13/16 [History] Folic Acid 1 mg PO DAILY #30 tablet 02/21/17 [Rx] Losartan [Cozaar] 25 mg PO DAILY 03/06/17 [History] B,C/Folic/Zinc/Copper Ox/Vit E [Stress B-Complex Tablet] 1 each PO DAILY [History] L. Acidophilus/Pectin, [place] [Acidophilus Probiotic Capsule] 1 each PO DAILY [History] Rivaroxaban [Xarelto] 20 mg PO DAILY 06/27/17 [History] Isosorbide MONOnitrate (24 HR) [Imdur] 30 mg PO DAILY #30 tab.er.24h 06/29/17 [ Rx] 3 Allergy/AdvReac Type Severity Reaction Status Date / Time Penicillins [PCN] Allergy Rash Verified 01/19/17 00:29 All Systems: A 10-system review of systems was performed and is negative for pertinent findings except as documented above in the HPI. Physical Examination Vital Signs: Vital Signs, Last 4 Hours Temp Pulse Resp BP Pulse Ox 06/30/17 07:58 97.9 F 84 17 129/71 96 General appearance: no acute distress ENT: oropharynx moist Mallampati (class): 4 Neck: supple, no lymphadenopathy Effort: normal Inspection: other (Obesity) Auscultation: bilateral: clear, diminished breath sounds (In the bases) Percussion: bilateral: not dull Cardiovascular: regular rate and rhythm Gastrointestinal: normoactive bowel sounds, non-distended Extremities: no cyanosis, no clubbing, edema normal mental status, non-focal exam mood appropriate Results - Laboratory Findings CBC and BMP: 06/29/17 05:42 06/29/17 05:42 PT/INR, D-dimer PT 14.0 Seconds (9.4-12.1) H 06/27/17 15:48 Abnormal lab findings: Abnormal lab results MCH 27.8 pg (28.0-33.3) L 06/29/17 05:42 Nucleated RBCs/100 WBC 0.2 /100 WBC (0) H 06/29/17 05:42 PT 14.0 Seconds (9.4-12.1) H 06/27/17 15:48 Potassium 3.2 mEq/L (3.5-5.1) L 06/29/17 05:42 Chloride 108 mEq/L (98-107) H 06/29/17 05:42 Glucose 240 mg/dL (70-105) H 06/29/17 05:42 POC Glucose 240 (58-89) H 06/29/17 20:40 Hemoglobin A1c 9.5 % (-5.6) H 06/29/17 05:42 Triglycerides 228 mg/dL (< 150) H 06/29/17 05:42 VLDL Cholesterol, Calc 46 mg/dL (< 31) H 06/29/17 05:42 HDL Cholesterol 33 mg/dL (40-59) L 06/29/17 05:42 - Diagnostic Findings CT scan - chest: report reviewed, image reviewed - Clinical Findings Intake & Output: Intake & Output 06/29/17 06/30/17 06/30/17 23:59 07:59 15:59 Intake Total 120 / 120 Balance 120 / 120 Weight 111.543 kg 109.905 kg Consult Discharge Plan - Plan Additional Instructions: Please follow up with your PCP in the next 7-10 days. Return to the ER immediately if your symptoms return or worsen or for any other problems or concerns. REturn to your normal diet and activities as tolerated. Your A1c is significantly elevated over your last result-9.5% . Please follow up with your PCP for continued monitoring. Check your blood glucose as directed by your PCP and take your medications as directed. Make sure that you are following a diabetic diet and getting plenty of exercise. Referrals: Cardiology Michelle [Provider Group] - 07/13/17 3:30 pm Francine Wood MD [Primary Care Provider] - 07/06/17 1:45 pm Prescriptions: Isosorbide MONOnitrate (24 HR) [Imdur] 30 mg PO DAILY #30 tab.er.24h
--- NOTE | 2017-06-30 10:24 | Discharge Summary ---
Date of Encounter: 06/30/17 Time of Encounter: 10:25 - Discharge Diagnosis (1) Chest pain Priority: Primary Status: Resolved Comments: presented with sudden onset substernal chest pain while at rest. No aggravating factors, relieved with NTG. Chest CTA negative for pulmonary embolism. Serial troponin negative, EKG without acute ST changes. 02/2017 TTE with EF 60%, mild hypertrophy of left ventricle, mild LVEDD, mild TR. Nuclear stress test today showed gated EF greater than 70%, perfusion imaging was negative for ischemia or infarct. 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 Chest pain resolved at time of discharge. Defer ASA to PCP and/or Cardiology as she is on Xarelto Qualifiers: Chest pain type: precordial pain Qualified Code(s): R07.2 - Precordial pain (2) DM type 2 (diabetes mellitus, type 2) Priority: Primary Status: Acute Comments: per hx and uncontrolled. Hgb A1c 9.3%, patient reports metformin was stopped per PCP. Resume metformin, educated on dietary compliance. Recommend follow- up with PCP within one week Qualifiers: Diabetes mellitus complication status: with unspecified complications Diabetes mellitus senior care insulin use: without senior care use Qualified Code( s): E11.8 - Type 2 diabetes mellitus with unspecified complications (3) HLD (hyperlipidemia) Priority: Secondary Status: Chronic Comments: per hx. Cont home statin Qualifiers: Hyperlipidemia type: unspecified Qualified Code(s): E78.5 - Hyperlipidemia , unspecified (4) Hypertension Priority: Secondary Status: Chronic Comments: per hx. BP controlled. Cont home BP medication Qualifiers: Hypertension type: essential hypertension Qualified Code(s): I10 - Essential (primary) hypertension (5) Hypothyroidism Priority: Secondary Status: Chronic Comments: per hx. Cont home levothyroxine Qualifiers: Hypothyroidism type: unspecified Qualified Code(s): E03.9 - Hypothyroidism , unspecified (6) Abnormal CT scan, chest Priority: Secondary Status: Chronic Comments: Chest CTA showed bilateral, mild groundglass opacities concerning for infiltrates, pulmonary edema or microatelectatic change. No evidence of infection, no elevated WBC, afebrile. No hypotension or tachycardia. Evaluated by Pulmonology who felt findings were nonspecific and unlikely infectious. Asymptomatic, no need for further workup per Pulmonology. (7) Suspected sleep apnea Priority: Secondary Status: Chronic Comments: suspected with morbid obesity, snoring and rowded oropharynx. Recommend outpatient sleep study. - Discharge Medications Prescriptions: Isosorbide MONOnitrate (24 HR) [Imdur] 30 mg PO DAILY #30 tab.er.24h metFORMIN [Glucophage] 500 mg PO BIDWM #60 tablet Home Medications: Atorvastatin [Lipitor] 40 mg PO HS 06/05/16 [History] Escitalopram [Lexapro] 20 mg PO DAILY 06/05/16 [History] Ezetimibe [Zetia] 10 mg PO DAILY 06/05/16 [History] Levothyroxine [Synthroid] 100 mcg PO QAM 06/05/16 [History] Omeprazole [PriLOSEC] 20 mg PO DAILY 06/05/16 [History] acetaZOLAMIDE [Acetazolamide] 500 mg PO BID 07/21/16 [History] Aspirin 81 mg PO DAILY tab.chew 07/26/16 [Rx] Topiramate [Topamax] 50 mg PO BID 12/13/16 [History] Folic Acid 1 mg PO DAILY #30 tablet 02/21/17 [Rx] Losartan [Cozaar] 25 mg PO DAILY 03/06/17 [History] B,C/Folic/Zinc/Copper Ox/Vit E [Stress B-Complex Tablet] 1 each PO DAILY [History] L. Acidophilus/Pectin, [place] [Acidophilus Probiotic Capsule] 1 each PO DAILY [History] Rivaroxaban [Xarelto] 20 mg PO DAILY 06/27/17 [History] Isosorbide MONOnitrate (24 HR) [Imdur] 30 mg PO DAILY #30 tab.er.24h 06/29/17 [ Rx] metFORMIN [Glucophage] 500 mg PO BIDWM #60 tablet 06/30/17 [Rx] Allergies/Adverse Reactions: 3 Allergy/AdvReac Type Severity Reaction Status Date / Time Penicillins [PCN] Allergy Rash Verified 01/19/17 00:29 Procedures/tests Complete & Pending: Procedures Performed prior 72 hours Category Date Time Status NM melquiades perf SPECT multi [NM] Routine Exams 06/28/17 08:00 Taken SP pharm nuclear stress Routine Y 06/28/17 Completed Date of admission: 06/27/17 21:55 Primary care physician: Francine Wood Consults: 06/29/17 15:36 Consult to Pulmonology [CONS] Routine Consulting Provider: [facility] Reason for Consult: abnormal CT chest, pneumonia vs pulmonary edema? Time Notified: 15:37 Call Completed: Yes Discharging clinician: Janet Díaz Anticipated date of discharge: 06/30/17 - Patient Status Disposition: Home, Self-Care Condition: Good Functional capacity at discharge: uses cane/walker Overall status at discharge: patient is progressing back to baseline - Discharge Instructions Instructions: Sleep Apnea Syndrome (DC), Diabetes Mellitus Type 2 in Adults (DC ), Metformin (By mouth), Isosorbide Mononitrate (By mouth) Follow Up With: Cardiology Michelle [Provider Group] - 07/13/17 3:30 pm Francine Wood MD [Primary Care Provider] - 07/06/17 1:45 pm Additional Instructions: Please follow up with your PCP in the next 7-10 days. Return to the ER immediately if your symptoms return or worsen or for any other problems or concerns. Return to your normal diet and activities as tolerated. Your A1c is significantly elevated over your last result-9.5% . Please follow up with your PCP for continued monitoring. Check your blood glucose as directed by your PCP and take your medications as directed. Make sure that you are following a diabetic diet and getting plenty of exercise. Please follow up with your family doctor for outpatient sleep study - Diet and Activity Activity: increase activity as tolerated Diet: advance to your usual diet Interval History: Seen and examined at bedside, patient is new to me. Information obtained from chart review and patient report. Patient says she feels back to baseline, no chest pain or shortness of breath. She is requesting discharge home today. Spoke to patient at length regarding the need to resume home metformin and dietary compliance. Patient states she has a common her at home and she will monitor her blood sugar, keep track and take lolled to PCP. Hospital course: See assessment and plan for hospital course - Time Spent with Patient Total time spent providing and/or coordinating discharge services: - Constitutional Vitals: Temp Pulse Resp BP Pulse Ox 97.9 F 84 17 129/71 96 06/30/17 07:58 06/30/17 07:58 06/30/17 07:58 06/30/17 07:58 06/30/17 07:58 General appearance: Present: cooperative, A&O X 3, pleasant, no acute distress, answers questions appropriately - Head Head exam: Present: atraumatic, normocephalic - Eye Eye exam: Present: PERRL, conjuntiva pink, sclera anicteric Pupils: Present: PERRL - Neck Neck exam general surgery: Present: supple, trachea midline. Absent: lymphadenopathy - Respiratory Respiratory exam: Present: CTAB. Absent: accessory muscle use, rales, rhonchi, wheezes - Cardiovascular Cardiovascular exam: Present: RRR, +S1, +S2. Absent: diastolic murmur, gallop, rubs, systolic murmur - GI/Abdominal GI/Abdominal exam: Present: normal bowel sounds, soft, no peritoneal signs. Absent: distended, tenderness - Extremities Exam Extremities exam: Present: warm, radial pulses palpable and symmetrical. Absent : calf tenderness, cyanotic, pedal edema - Neurological Exam Neurological exam: Present: CN II-XII intact, oriented X3, no focal deficits. Absent: pronater drift, facial droop, speech deficit - Skin Skin exam: Present: dry, intact - VTE Documentation of Mechanical Device: Graduated compression elastic hosiery
== END 2017-06-30 11:45 | disposition home or self-care (01) ==
LOC: 3BNU 14:27 → EMEROO 14:27 → 3BNU 21:47
PROVIDERS: ADMIT Internal Medicine; ATTEND Registered Nurse

== ENCOUNTER 2021-05-03 08:35 | Inpatient (IN) ==
[2021-05-03] MEDS ORDERED: levoFLOXacin 500 MG/100 ML 500 MG/100 ML BAG IVPB ONE (08:56)
[2021-05-03] MEDS ORDERED: MetroNIDAZOLE 500 MG/100 ML 500 MG/100 ML BAG IVPB ONE (08:58)
[2021-05-03] MEDS ORDERED: Ringers Solution, Lactated 1,000 ML IVC SCH (09:00)
[2021-05-03] MEDS ORDERED: Lidocaine -MPF 1% 2 ML AMPUL ONE (09:28)
[2021-05-03] MEDS ORDERED: Ondansetron 4 MG/2 ML VIAL IVP PRN ×2 (09:49→17:07)
[2021-05-03] MEDS ORDERED: *HR* HYDROmorphone PF 0.5 MG/0.5 ML SYRINGE IVP PRN (09:49)
[2021-05-03] MEDS ORDERED: *HR* FentaNYL (PF) 100 MCG/2 ML VIAL ONE ×2 (10:04→12:06)
[2021-05-03] MEDS ORDERED: *HR* Rocuronium Bromide 50 MG/5 ML VIAL ONE ×2 (10:04→13:01)
[2021-05-03] MEDS ORDERED: *HR* Succinylcholine 200 MG/10 ML VIAL IVP ONE (10:04)
[2021-05-03] MEDS ORDERED: Lidocaine -MPF 2% 2 ML VIAL ONE (10:04)
[2021-05-03] MEDS ORDERED: Lidocaine HCL 4 ML Topical Solution (Laryng-O-Jet Kit Sterile Pak) TP ONE (10:04)
[2021-05-03] MEDS ORDERED: *HR* Propofol 200 MG/20 ML VIAL IVP ONE (10:04)
[2021-05-03] MEDS ORDERED: Ondansetron 4 MG/2 ML VIAL ONE (10:04)
[2021-05-03] MEDS ORDERED: *HR* Midazolam HCl 2 MG/2 ML VIAL ONE (10:04)
[2021-05-03] MEDS ORDERED: Acetaminophen IV 1,000 MG/100 ML BAG IVPB ONE (10:38)
[2021-05-03] MEDS ORDERED: EPHEDrine 50 MG/ML VIAL ONE (11:56)
[2021-05-03] MEDS ORDERED: *HR* HYDROMORPHONE 2 MG/ML VIAL ONE (13:32)
[2021-05-03] MEDS ORDERED: *HR* Dextrose 50 % in Water (Syg) 50 ML SYRINGE IVP PRN (17:07)
[2021-05-03] MEDS ORDERED: *HR* HYDROmorphone 20 MG/20 ML PCA IVC PRN (17:07)
[2021-05-03] MEDS ORDERED: MetroNIDAZOLE 500 MG/100 ML 500 MG/100 ML BAG IVPB SCH (17:07)
[2021-05-03] MEDS ORDERED: Naloxone 0.4 MG/ML INJ IVP PRN (17:07)
[2021-05-03] MEDS ORDERED: Dextrose Gel 15 GM/37.5 ML TUBE PO PRN ×2 (17:07)
[2021-05-03] MEDS ORDERED: D5% in Water 1,000 ML IVC PRN (17:07)
[2021-05-03] MEDS: Ketorolac 30 MG/ML VIAL IVP SCH (17:34)
[2021-05-03] MEDS: Insulin LISPRO 300 UNITS/3 ML VIAL SUBQ SCH (17:35)
[2021-05-03] MEDS: 0.9 % Sodium Chloride 1,000 ML IVC SCH (17:36)
[2021-05-03] MEDS: metroNIDAZOLE 500 MG TABLET PO SCH (21:55)
[2021-05-03] MEDS: Topiramate 25 MG TABLET PO SCH (21:56)
[2021-05-04] MEDS: Ketorolac 30 MG/ML VIAL IVP SCH ×4 (00:34→17:53)
[2021-05-04] MEDS: Insulin LISPRO 300 UNITS/3 ML VIAL SUBQ SCH ×4 (00:34→17:47)
[2021-05-04 02:52] LABS: Basophils % 0.3 %; Hematocrit 35.3 % (35.3-44.9); Hemoglobin 11.5 g/dL (11.5-15.4); Immature Granulocytes % 0.5 % (0-4); Lymphocytes # 0.7 K/mcL (0.6-4.6); Lymphocytes % 9.7 %; Mean Corpuscular HGB Conc 32.6 g/dL (31.6-35.5); Mean Corpuscular Hemoglobin 28.4 pg (28.0-33.3); Mean Corpuscular Volume 87.2 fL (83.0-100.0); Mean Platelet Volume 9.7 fL (9.4-12.4); Monocytes # 0.7 K/mcL (0.0-1.3); Neutrophils # 5.9 K/mcL (1.6-8.9); Platelet Count 167 K/mcL (140-400); Red Blood Count 4.05 M/mcL (3.82-4.97); Red Cell Distribution Width 13.2 % (11.5-14.5); Segmented Neutrophils % 80.5 %; White Blood Count 7.3 K/mcL (4.3-11.1)
[2021-05-04 03:02] LABS: Blood Urea Nitrogen 11 mg/dL (8-23); Calcium 8.3 mg/dL (8.6-10.3); Carbon Dioxide 20 mEq/L (23-29); Chloride 107 mEq/L (98-107); Glucose 150 mg/dL (70-105); Magnesium 1.1 mg/dL (1.6-2.6); Osmolality,Calculated 286 (280-300); Phosphorous 3.8 mg/dL (2.7-4.5); Potassium 3.6 mEq/L (3.5-5.1); Sodium 137 mEq/L (136-145)
[2021-05-04 03:42] LABS: BUN/Creatinine Ratio 11 (6-26); eGFR For African Americans > 60 (> 60); eGFR For Non-African Americans 59 (> 60)
[2021-05-04] MEDS ORDERED: levoFLOXacin 500 MG/100 ML 500 MG/100 ML BAG IVPB SCH (09:00)
[2021-05-04] MEDS: metroNIDAZOLE 500 MG TABLET PO SCH ×3 (09:02→20:07)
[2021-05-04] MEDS: Isosorbide MONOnitrate (24 HR) 30 MG TAB.ER.24H PO SCH (09:02)
[2021-05-04] MEDS: Topiramate 25 MG TABLET PO SCH ×2 (09:03→20:07)
[2021-05-04] MEDS: 0.9 % Sodium Chloride 1,000 ML IVC SCH ×2 (12:26→18:00)
[2021-05-04] MEDS: *HR* Heparin 5,000 UNIT/ML VIAL SQ SCH (17:52)
[2021-05-05] MEDS: Insulin LISPRO 300 UNITS/3 ML VIAL SUBQ SCH ×4 (00:08→17:54)
[2021-05-05] MEDS: Ketorolac 30 MG/ML VIAL IVP SCH ×4 (00:08→17:46)
[2021-05-05] MEDS: *HR* Metoprolol 5 MG/5 ML VIAL IVP SCH ×3 (03:16→16:08)
[2021-05-05 05:06] LABS: Basophils # 0.1 K/mcL (0.0-0.2); Basophils % 0.3 %; Eosinophils % 0.1 %; Hematocrit 37.7 % (35.3-44.9); Hemoglobin 12.3 g/dL (11.5-15.4); Immature Granulocytes % 0.6 % (0-4); Lymphocytes # 2.2 K/mcL (0.6-4.6); Mean Corpuscular HGB Conc 32.6 g/dL (31.6-35.5); Mean Corpuscular Hemoglobin 28.8 pg (28.0-33.3); Mean Corpuscular Volume 88.3 fL (83.0-100.0); Mean Platelet Volume 9.9 fL (9.4-12.4); Monocytes # 1.2 K/mcL (0.0-1.3); Monocytes % 7.2 %; Neutrophils # 13.2 K/mcL (1.6-8.9); Platelet Count 177 K/mcL (140-400); Red Blood Count 4.27 M/mcL (3.82-4.97); Red Cell Distribution Width 13.6 % (11.5-14.5); Segmented Neutrophils % 78.8 %; White Blood Count 16.8 K/mcL (4.3-11.1)
[2021-05-05] MEDS: *HR* Heparin 5,000 UNIT/ML VIAL SQ SCH (05:54)
[2021-05-05] MEDS: 0.9 % Sodium Chloride 1,000 ML IVC SCH (06:43)
[2021-05-05 08:41] LABS: Bacteria,Urine Few per hpf (None-Few); Bilirubin,Urine Negative (Negative); Blood,Urine Small (Negative); Clarity,Urine Turbid (Clear); Color,Urine Yellow (Yellow); Glucose,Urine (UA) 150 mg/dL (Normal); Hyaline Casts,Urine Many per lpf (None Seen); Ketones,Urine Trace mg/dL (Negative); Leukocyte Esterase,Urine Trace (Negative); Mucus,Urine Few per lpf (None-Few); Nitrite,Urine Negative (Negative); Protein,Urine 200 mg/dL (Neg-Trace); RBC,Urine 30-50 per hpf (0-3); Specific Gravity,Urine 1.028 (1.010-1.025); Squamous Epithelial Cell,Urine Few per hpf (None-Few); Urobilinogen,Urine Normal (Normal)
[2021-05-05] MEDS ORDERED: Aspirin 325 MG TABLET PO ONE (08:46)
[2021-05-05] MEDS ORDERED: Aspirin 81 MG TAB.CHEW ONE (08:48)
[2021-05-05] MEDS ORDERED: Isovue-370 500 ML BOTTLE IVP ONE ×3 (08:49→19:50)
[2021-05-05] MEDS ORDERED: Furosemide 20 MG/2 ML VIAL IVP ONE ×2 (08:52)
[2021-05-05 09:08] LABS: ABG Base Excess -8 mEq/L (-2 to 3); ABG HCO3 17 mEq/L (21-27); ABG Oxygen Saturation 90 % (95-98); ABG PCO2 31 mmHg (35-45); ABG PH 7.35 pH Units (7.32-7.45); ABG PO2 60 mmHg (85-104); ABG TCO2 18 mEq/L (20-26)
[2021-05-05 09:46] LABS: Calcium 8.6 mg/dL (8.6-10.3); Potassium 4.5 mEq/L (3.5-5.1); Troponin I 0.16 ng/mL (< 0.04)
[2021-05-05] MEDS ORDERED: *HR* Heparin 5,000 UNIT/ML VIAL IVP ONE ×2 (10:25→10:27)
[2021-05-05] MEDS ORDERED: *HR* Heparin 5,000 UNIT/ML VIAL IVP PRN ×6 (10:25→19:50)
[2021-05-05] MEDS ORDERED: Heparin 25,000 UNIT/250 ML 25,000 UNIT/250 ML IV.SOLN IVC SCH ×2 (10:30→19:50)
[2021-05-05] MEDS ORDERED: Heparin 25,000UNIT/250ML 1/2NS 25,000 UNIT/250 ML IV.SOLN IVC SCH (10:30)
[2021-05-05] MEDS: Topiramate 25 MG TABLET PO SCH (12:52)
[2021-05-05] MEDS: Isosorbide MONOnitrate (24 HR) 30 MG TAB.ER.24H PO SCH (12:52)
[2021-05-05 15:27] VITALS: PULSE 80
[2021-05-05] MEDS ORDERED: 0.9 % Sodium Chloride 1,000 ML IVC SCH ×2 (16:45→19:50)
[2021-05-05] MEDS ORDERED: Ondansetron 4 MG/2 ML VIAL IVP PRN (19:50)
[2021-05-05] MEDS ORDERED: Perflutren Lipid Microsphere 1.3 ML in 0.9 % Sodium Chloride 8.7 ML IVP PRN (19:50)
[2021-05-05] MEDS ORDERED: D5% in Water 1,000 ML IVC PRN (19:50)
[2021-05-05] MEDS ORDERED: Dextrose Gel 15 GM/37.5 ML TUBE PO PRN ×2 (19:50)
[2021-05-05] MEDS ORDERED: Naloxone 0.4 MG/ML INJ IVP PRN (19:50)
[2021-05-05] MEDS ORDERED: *HR* Dextrose 50 % in Water (Syg) 50 ML SYRINGE IVP PRN (19:50)
[2021-05-05 19:55] VITALS: BP 106/70; TEMP 98
[2021-05-05 20:20] LABS: Heparin anti-factor XA UFH 0.31 IU/mL (0.30-0.70); INR 1.1; Prothrombin Time 12.6 Seconds (9.4-12.1)
[2021-05-05 20:50] VITALS: O2SAT 98
[2021-05-05] MEDS ORDERED: Topiramate 25 MG TABLET PO SCH (21:00)
[2021-05-05] MEDS ORDERED: *HR* Metoprolol 5 MG/5 ML VIAL IVP SCH (21:04)
[2021-05-05 21:51] LABS: Adenovirus Not Detected (Not Detect); Bordetella Pertussis Not Detected (Not Detect); Chlamydophila pneumoniae Not Detected (Not Detect); Coronavirus 229E Not Detected (Not Detect); Coronavirus HKU1 Not Detected (Not Detect); Coronavirus NL63 Not Detected (Not Detect); Coronavirus OC43 Not Detected (Not Detect); Human Metapneumovirus Not Detected (Not Detect); Human Rhinovirus/Enterovirus Not Detected (Not Detect); Influenza A Subtype 2009 H1 Not Detected (Not Detect); Influenza B Not Detected (Not Detect); Mycoplasma pneumoniae Not Detected (Not Detect); Parainfluenza Virus 1 Not Detected (Not Detect); Parainfluenza Virus 2 Not Detected (Not Detect); Parainfluenza Virus 3 Not Detected (Not Detect); Parainfluenza Virus 4 Not Detected (Not Detect); Respiratory Syncytial Virus Not Detected (Not Detect); SARS-CoV-2 Not Detected (Not Detect)
[2021-05-05] MEDS ORDERED: Ipratropium/Albuterol Neb 3 ML IH SCH (22:00)
[2021-05-06] MEDS ORDERED: Ketorolac 30 MG/ML VIAL IVP SCH
[2021-05-06] MEDS ORDERED: Insulin LISPRO 300 UNITS/3 ML VIAL SUBQ SCH
[2021-05-06] MEDS ORDERED: NON-FORMULARY MEDICATION 1 EACH EACH (Omeprazole [Prilosec] 40 MG) PO SCH (09:00)
[2021-05-06] MEDS ORDERED: Isosorbide MONOnitrate (24 HR) 30 MG TAB.ER.24H PO SCH (09:00)
[2021-05-06] MEDS ORDERED: Aspirin 81 MG TAB.CHEW PO SCH (09:00)
== END 2021-05-05 22:00 | disposition short-term general hospital (02) | DRG 329 ==
LOC: SAMDAY 08:35 → 3ANU 16:52 → 2NNU 05-05 14:34
PROVIDERS: ADMIT Surgery; ATTEND Surgery